=== PATIENT | male | born 1990 | race Caucasian/White ===

== ENCOUNTER 2017-11-29 13:20 | Emergency (ER) | payer BC, SELFPAY ==
[2017-11-29 13:31] VITALS: BP 128/72; PULSE 90; RESP 16; TEMP 37.1; O2SAT 100
--- NOTE | 2017-11-29 13:53 | DI.RPTCT_ITS ---
SYMPTOMS/DIAGNOSIS: RIGHT LOWER ABDOMINAL PAIN, H/O CROHN'S CT ABDOMEN AND PELVIS: CT abdomen and pelvis was performed following the uneventful administration of intravenous and oral contrast material. Comparison is 01/12/16. The visualized lung bases are clear. The liver, spleen, pancreas, gallbladder, adrenal glands , kidneys and urinary bladder are unremarkable. The reproductive organs are unremarkable. There is mild thickening of the wall of the terminal ileum. The remainder of the bowel is unremarkable. No findings to suggest an acute appendicitis are present. No abdominal or pelvic ascites or pneumoperitoneum is seen. There are mildly enlarged lymph nodes seen in the right lower quadrant, which were present on the CT scan from 01/12/16. No acute abnormality is seen in the bones. No evidence of an inguinal hernia is seen. IMPRESSION: Mild bowel wall thickening seen in the terminal ileum, suspicious for an acute inflammatory or infectious process. The findings were discussed with Dr. Ziggy Stratton of the Emergency Department on the date of the examination.
--- NOTE | 2017-11-29 13:53 | ED.GENADUL ---
Disposition Clinical Impression: Crohn's colitis Disposition: HOME Instructions: Crohn Disease (ED) Additional Instructions: Maintain a bland diet today and tomorrow. Advance your diet slowly thereafter. Please follow-up with your primary care physician. Return to the emergency department immediately for any worsening or new concerning symptoms. Referrals: [facility] [Primary Care Provider] - Medical Decision Making - Medical Decision Making 1354: 27-year-old male with history of Crohn's disease here with right lower abdominal pain progressive over the past 2 weeks, tender right lower quadrant. Consider acute surgical pathology including appendicitis. Plan to CT abdomen pelvis. 1645: CT abdomen pelvis interpreted by radiology: Thickening of terminal ileum noted. No appendicitis. Labs reviewed and nondiagnostic. Suspect crohns flare. Patient is remained stable. Plan to discharge and have him follow-up with his primary care physician. History of Present Illness - General Chief complaint: Abd Prob Stated complaint: RIGHT SIDE PAIN Time Seen by Provider: 11/29/17 13:39 Source: patient, RN notes reviewed Mode of arrival: ambulatory Limitations: no limitations - History of Present Illness Initial comments: 27-year-old male with history of Crohn's disease here with right lower abdominal pain over the past 2 weeks. Pain was initially mild and has progressed since onset and is now moderate to severe. Patient denies modifiers. Pain feels like a ache. Pain seems to radiate into his right lower back as well as groin. He has had some associated nausea with no vomiting or diarrhea. No fever. - Related Data Mesalamine [Apriso] 0.375 gm PO DAILY 11/29/17 Allergies Allergy/AdvReac Type Severity Reaction Status Date / Time No Known Allergies Allergy Unverified 11/29/17 13:35 Review of Systems Constitutional: denies: chills, fever Respiratory: denies: cough, shortness of breath Gastrointestinal: as per HPI, abdominal pain, nausea. denies: vomiting Comment: All other systems reviewed and negative Past Medical History - Past Medical History Crohn's disease Surgical history: no surgical history Family history: no significant family history - Social History Smoking status: never smoker General Exam - General Limitations: no limitations General appearance: alert, in no apparent distress - Eye Eye exam: Absent: scleral icterus, conjunctival injection - ENT ENT exam: Present: mucous membranes moist - Respiratory Respiratory exam: Present: normal lung sounds bilaterally - Cardiovascular Cardiovascular Exam: Present: regular rate, normal rhythm, normal heart sounds - GI/Abdominal GI/Abdominal exam: Present: soft, tenderness (Right lower quadrant), normal bowel sounds. Absent: distended, guarding, rebound, rigid - exam: Present: other (No hernia inguinal). Absent: testicular tenderness, urethral discharge, scrotal swelling - Back Exam Back exam: Present: normal inspection - Neurological Exam Neurological exam: Present: alert. Absent: altered - Psychiatric Psychiatric exam: Present: normal affect - Skin Skin exam: Present: warm, dry, intact Course Vital Signs - 24 hr 11/29/17 13:31 Temperature 37.1 C Pulse 90 Respiratory 16 Rate Blood Pressure 128/72 Pulse Oximetry 100
[2017-11-29] MEDS: Lactated Ringers 1,000 ML 150 ML IV (14:20)
[2017-11-29] MEDS: Normal Saline Flush 10 ML SYR IVP (14:20)
[2017-11-29 14:27] LABS: Bilirubin Negative (Negative); Blood Trace-intact (Negative); Clarity Clear; Glucose Negative (Negative); Ketones Negative (Negative); Leukocyte Esterase Negative (Negative); Nitrite Negative (Negative); Specific Gravity 1.015 (1.005-1.025); Urobilinogen 0.2 EU/dL (Up TO 0.2)
[2017-11-29 14:29] LABS: Abs Immature Grans 0.03 k/cumm (0.0-0.09); Absolute Basophil Count 0.03 k/cumm (0.0-0.2); Absolute Eosinophil Count 0.15 k/cumm (0.0-0.7); Absolute Lymphocyte Count 1.43 k/cumm (1.2-3.4); Absolute Neutrophil Count 6.29 k/cumm (1.2-6.7); Basophils % 0.3; Eosinophils % 1.7; HCT 40.1 % (40.0-50.0); HGB 13.5 g/dL (13.5-17.5); Immature Grans % 0.3; Lymphocytes % 16.6; Mean Corp. HGB Concentration 33.7 g/dL (32.0-36.0); Mean Corpuscular Hemoglobin 30.9 pg (27.0-33.0); Mean Corpuscular Volume 91.8 fL (80-95); Monocytes % 8.1; Platelet Count 263 x1000/uL (130-400); RBC 4.37 m/cumm (4.50-6.00); RBC Distribution Width 12.7 % (11.8-14.1); White Blood Cell Count 8.63 k/cumm (4.4-10.8)
[2017-11-29 14:42] LABS: ALT 31 U/L (12-78); AST 17 U/L (15-37); Albumin 4.2 g/dL (3.4-5.0); Alkaline Phosphatase 83 U/L (46-116); Anion Gap 6.8 mmol/L (3-11); BUN 14 mg/dL (7-18); Bilirubin, Total 0.5 mg/dL (0.2-1.0); CO2 28.2 mmol/L (21.0-32.0); CREATININE 1.18 mg/dL (0.70-1.30); Calcium 8.4 mg/dL (8.5-10.1); Chloride 104 mmol/L (98-107); Glucose 100 mg/dL (70-100); Lipase 123 U/L (73-393); Potassium 3.3 mmol/L (3.5-5.1); Sodium 139 mmol/L (136-145); Total Protein 7.2 g/dL (6.4-8.2)
[2017-11-29 15:05] LABS: RBC 0-2 (0-2); WBC 0-2 HPF (0-5)
[2017-11-29 15:06] LABS: Bacteria Negative HPF (Negative); C & S Indicated? No; Casts Negative LPF (Negative); Crystals Negative HPF (Negative); Epithelial Cells Negative HPF (Negative); Mucus Negative (Negative); Other Cells Negative (Negative)
[2017-11-29] MEDS: Omnipaque 350 MG/ML 100 ML BTL IJ (15:38)
[2017-11-29 17:20] VITALS: BP 124/77; PULSE 73; RESP 18; TEMP 209.3; TEMP 98.5; O2SAT 98
== END 2017-11-29 17:30 | disposition home or self-care (01) ==
PROVIDERS: Emergency Provider Student in an Organized Health Care Education/Training Program; PCP Family Medicine
DX: K50.00 Crohn's disease of small intestine without complications (principal)
CPT/HCPCS: 36415; 80053; 83690; 96360; 96361; 99285; 74177; 81003; 81015; 85025; 99284; J3490

== ENCOUNTER 2018-01-04 17:08 | Emergency (ER) | payer BC, SELFPAY ==
[2018-01-04 17:25] VITALS: BP 137/69; PULSE 70; RESP 16; TEMP 36.7; O2SAT 96
--- NOTE | 2018-01-04 17:57 | ED.GENADUL_ITS ---
Discharge Plan Disposition Patient Disposition: HOME Condition: Fair Discharge Details Chief Complaint: Abd Prob Clinical Impression: Left inguinal pain Primary Care Provider: [facility] ED Provider: Jennifer Long Home Meds and New Rx's Prescriptions: Continue mesalamine [Apriso] 0.375 GM capsule,extended release 24hr 0.375 gm PO DAILY RF: 0 Budesonide [Budesonide EC] 3 MG Capdr...Er 3 mg PO TID 28 Days Qty: 63 RF: 0 Discharge Instructions Instructions: Testicle Pain (ED) Additional Instructions: Encourage hydration. Tylenol and/or ibuprofen as needed for discomfort. Please follow-up for ultrasound, they will contact him Saturday morning to schedule appointment. Once the appointment has been made please contact her primary care to establish appointment after that to discuss the results. Try to elevate your testicles to help any discomfort. If you develop fever/chills, change in urination, change in bowel habits, penile discharge, swelling of the testicles or other new/worsening symptoms please seek care urgently once again. Referrals: Get [facility] [Primary Care Provider] - Discharge Data Discharge Date/Time-TO BE ENTERED AT DEPARTURE: 01/04/18 19:41 Medical Decision Making MDM Narrative Medical decision making narrative: Patient presents today with chief complaint of left inguinal pain. Reports this pain can radiate down towards left testicle. He reports that the cord that goes down to the testicle is swollen . However, on exam I am unable to appreciate any swelling. No erythema. The left testicle does hang slightly lower than the right. Patient reports is typical. No pain elicited with palpation of the testicle. No pain elicited with palpation over the inguinal area. No palpable deformity to suggest hernia. His history does raise a concern for possible inguinal hernia, epididymitis, muscle strain. He does not report that there is any changes with movement. Again, no fevers or chills. No change in bowel habits or bladder habits. No penile discharge. Patient I discussed with/benefits of imaging. Patient reports he has had approximately 6 CT of his abdomen in the past. With the risk of radiation mounting, he prefers to forego CT at this time. We did discuss that ultrasound would be exam of choice. At this time of night, I do not have an in flight technician on. However, as the pain has been steady for the past 2 weeks, he does not exhibit any signs of torsion, I do not feel that emergent imaging is necessary at this point. We will obtain baseline labs. Laboratory evaluation without significant abnormality. The white count is minimally elevated. However, again without findings on exam to suggest acute pathology I do not feel that imaging is warranted at this time as the only CT is available at this point in the evening. Patient and I again discussed imaging and he agrees with outpatient ultrasound to help reduce his radiation load as he has had so many secondary to his Crohn's. Patient will be set up with outpatient ultrasound. A dirty urine for GC chlamydia has been sent. He was given strict return precautions. Will f/u with his PCP after US. All of his questions and concerns were addressed he is in agreement with this plan. HPI - General Adult General Mode of arrival: ambulatory . Date/Time Provider Initiated Documentation: 01/04/18 17:34 . Limitations to Documentation: no limitations . Information obtained by: patient . HPI Narrative: Patient is a 27-year-old male presenting today with chief complaint of left inguinal pain. Reports that the pain has been steady for the past 2 weeks. Reports the pain is irritating. States it has improved over this time. He denies any fevers or chills. Patient has history of Crohn's. Was here a few weeks ago and diagnosed with Crohn's flare with pain in the lower abdomen on the right side. CT was obtained at that time. He denies any penile discharge. Denies any dysuria, hematuria or change in urinary habits. Patient denies any change in his bowel habits. Denies any new sexual partners. He has not been tested for STDs previously. Reports that he does try to practice safe sex. Related Data Home Medications Medication Instructions Recorded Confirmed mesalamine [Apriso] 0.375 gm PO DAILY 11/29/17 01/04/18 Previous Rx's Medication Instructions Recorded Budesonide [Budesonide EC] 3 mg PO TID 28 Days #63 capdr...er 11/29/17 Allergies Allergy/AdvReac Type Severity Reaction Status Date / Time No Known Allergies Allergy Unverified 01/04/18 17:29 General Stated Complaint: Abd Prob PALOMO: 3 Review of Systems Constitutional Reports as per HPI, Denies chills, Denies fever(s) and Denies poor appetite Cardiovascular Denies chest pain and Denies dyspnea Respiratory Denies cough and Denies dyspnea Gastrointestinal Reports as per HPI, Denies melena, Denies bloating, Denies change in bowel habits, Denies diarrhea, Denies nausea and Denies vomiting Genitourinary Reports as per HPI Musculoskeletal Denies abnormal gait and Denies back pain Integumentary/Breasts Denies non-healing lesions, Denies rash and Denies skin pain Neurologic Denies abnormal gait PFSH Social History Smoking/Tobacco Use Status: Never Exam Const General: cooperative, healthy appearing, comfortable, no acute distress and well developed Nutritional Appearance: average body habitus Orientation: alert and awake Eyes General: appearance normal, both eyes and all related structures Resp Effort & Inspection: normal respiratory effort, able to speak in complete sentences and no respiratory distress Cardio Rate: regular rate Rhythm: regular rhythm Heart Sounds: S1 normal and S2 normal GI Inspection: normal to inspection, no abdominal wall ecchymosis, no edema, non- distended, no incisions and no scars Palpation: soft, no hepatosplenomegaly, no aortic enlargement, not firm, no guarding, not rigid and nontender Percussion: normal to percussion Auscultation: normal bowel sounds Abdomen image: 2 1. area of discomfort Male General Exam: Yes normal external exam, No ecchymosis, No edema, No erythema, No hernia, No inguinal lymphadenopathy, No lacerations and No lesions Penis: normal penis Scrotum: scrotum normal, cremasteric reflex present, no ecchymosis, not edematous, not erythematous, no hydroceles, no masses and no scrotal swelling Testes: normal, testicular lie normal (left testicle lies slightly lower than the right ), epididymal tenderness (Mild tenderness, no palpable swelling or abnormality palable or visible) and no testicular tenderness Back/Spine/Pelvis Back: no CVA tenderness Skin General skin exam: no rashes or lesions noted Lesions: no lesions Rashes: no rashes Trauma: no lacerations or abrasions Wounds: no wounds Neuro General: alert and awake Cognition: normal cognition Speech: speech normal Gait: normal gait Psych Appearance: grossly normal and well kempt Mental Status: mental status grossly normal Speech and Movement: speech and movement normal Mood: congruent mood Affect: normal affect Attitude: cooperative Course Vital Signs Temperature 36.7 C 01/04/18 17:25 Pulse 70 01/04/18 17:25 Respiratory Rate 16 01/04/18 17:25 Blood Pressure 137/69 01/04/18 17:25 Pulse Oximetry 96 01/04/18 17:25 Temperature 36.7 C 01/04/18 17:25 Pulse 70 01/04/18 17:25 Respiratory Rate 16 01/04/18 17:25 Blood Pressure 137/69 01/04/18 17:25 Pulse Oximetry 96 01/04/18 17:25
[2018-01-04 18:21] LABS: Abs Immature Grans 0.01 k/cumm (0.0-0.09); Absolute Basophil Count 0.02 k/cumm (0.0-0.2); Absolute Eosinophil Count 0.11 k/cumm (0.0-0.7); Absolute Lymphocyte Count 1.33 k/cumm (1.2-3.4); Absolute Monocyte Count 0.87 k/cumm (0.11-0.7); Basophils % 0.2; HCT 40.7 % (40.0-50.0); HGB 13.7 g/dL (13.5-17.5); Immature Grans % 0.1; Lymphocytes % 11.7; Mean Corp. HGB Concentration 33.7 g/dL (32.0-36.0); Mean Corpuscular Hemoglobin 30.6 pg (27.0-33.0); Mean Corpuscular Volume 90.8 fL (80-95); Mean Platelet Volume 10.1 fL (8.0-11.0); Monocytes % 7.7; Neutrophils % 79.3; Platelet Count 289 x1000/uL (130-400); RBC 4.48 m/cumm (4.50-6.00); RBC Distribution Width 12.4 % (11.8-14.1); White Blood Cell Count 11.34 k/cumm (4.4-10.8)
[2018-01-04 18:22] LABS: Absolute Neutrophil Count 8.99 k/cumm (1.2-6.7)
[2018-01-04 18:26] LABS: ALT 25 U/L (12-78); AST 17 U/L (15-37); Albumin 4.2 g/dL (3.4-5.0); Alkaline Phosphatase 83 U/L (46-116); Anion Gap 7.2 mmol/L (3-11); BUN 22 mg/dL (7-18); Bilirubin, Total 0.5 mg/dL (0.2-1.0); CO2 27.8 mmol/L (21.0-32.0); CREATININE 1.25 mg/dL (0.70-1.30); Calcium 8.3 mg/dL (8.5-10.1); Chloride 104 mmol/L (98-107); Glucose 113 mg/dL (70-100); Potassium 3.4 mmol/L (3.5-5.1); Sodium 139 mmol/L (136-145); Total Protein 7.1 g/dL (6.4-8.2)
[2018-01-07 14:44] LABS: Chlamydia Result Negative; GC Result Negative
== END 2018-01-04 19:41 | disposition home or self-care (01) ==
PROVIDERS: Emergency Provider Physician Assistant; PCP Family Medicine
DX: R10.32 Left lower quadrant pain (principal)
CPT/HCPCS: 36410; 36415; 80053; 87491; 87591; 99282; 85025

== ENCOUNTER 2018-01-06 15:10 | Outpatient (CLI) | payer BC, SELFPAY ==
--- NOTE | 2018-01-06 08:59 | DI.US_ITS ---
SYMPTOM/DIAGNOSIS: LT INGUINAL AND TESTICULAR PAIN X 2 WEEKS TESTICULAR ULTRASOUND: The testicles are normal in size and echogenicity, and show normal blood flow. The epididymi appear symmetric. A small varicocele is seen inferior to the left testicle. No hydrocele is seen. There is no evidence of mass. IMPRESSION: Small left varicocele.
== END 2018-01-06 15:30 ==
PROVIDERS: PCP Family Medicine; Visit Provider Physician Assistant
DX: N50.89 Other specified disorders of the male genital organs (principal); I86.1 Scrotal varices
CPT/HCPCS: 76870

== ENCOUNTER 2018-05-01 18:06 | Emergency (ER) | payer BC, SELFPAY ==
[2018-05-01] VITALS (19 sets, daily range): BP systolic 125–131; BP diastolic 73–99; PULSE 74–96; RESP 13–35; TEMP 37.7; O2SAT 89–100
--- NOTE | 2018-05-01 18:28 | W.ED.GENAD ---
Discharge Plan Disposition Patient Disposition: HOME Condition: Fair Discharge Details Chief Complaint: Anxiety Clinical Impression: Anxiety Primary Care Provider: [facility] ED Provider: Jennifer Long Home Meds and New Rx's Prescriptions: Continued Apriso 0.375 GM capsule,extended release 24hr 0.375 gm PO DAILY RF: 0 Discharge Instructions Instructions: Lorazepam (By mouth), Anxiety (ED) Additional Instructions: Encourage hydration. Ativan as prescribed. May take on 0.5mg tablet every 8 hours as needed for anxiety. Please only take this as prescribed. Please call [facility] tomorrow, please plan to meet with Amarilis at their facility tomorrow. Call at 8AM [phone] Jones tomorrow to schedule follow up as soon as possible to discuss your severe anxiety, call tomorrow morning. If you develop worsening anxiety, thoughts of self harm, thoughts of harming others or any other new/worsening symptoms please seek care urgently once again. Stand Alone Forms: Work Release Referrals: Get [facility] [Primary Care Provider] - Discharge Data Discharge Date/Time-TO BE ENTERED AT DEPARTURE: 05/01/18 20:56 Medical Decision Making Patient is a 27 year old male presentig today with c/c of increased anxiety. Symptoms have been worsening over the past month with severe exacerbation in recent days with breakup. He is tearing and agitated on exam, appears very anxious. Good interaction with mother, lives with her. Patient is tachypnic at 27, HR 91. He endorses sleep changes, diminished appetite. Denies suicidal ideation, thoughts of self harm or harming other. currently endorsing CP that has waxed and waned since onset of increased anxiety. States that he has had this historically with anxiety but that todya is the worst he has ever exerpienced his anxiety. Endorses SOB with this. Will give oral ativan and reassess. Will also obtain EKG and labs. Discussed plan with patient who is in agreement. Patient questioned with mother out of the room as well. EKG reviewed by Dr. Stratton, patient in NSR rate 87. He advised no stemi, please see his note. Consulted with Lucy with [facility]. She advised that he may be seen emergently tomorrow at their facility. Gave contact information so that they may reach out to the patient tomorrow morning. Advised that he also f/u with PCP as they may have mental health capabilities through their facility. Discussed this plan with patient and his mother. Mother will help to ensure prompt follow up and plans to drive given his increased anxiety. They will contact [facility] and PCP tomorrow morning to schedule appointments. WBC elevated at 12, likely stress reaction with no evidence of acute infection. Troponin is normal. discussed these findings with the patient. He is feeling much improved after po Ativan. Plan to discharge home with 0.5mg tabs that he will use PRN for anxiety as prescribed. Only small amount given. He was given strict return precautions, they live locally and are able to seek care urgently. Will f/u with PCP and [facility] as above. All of his questions and concerns were addressed, he is able to verbally contract for safety and will discuss worsening symptoms with his mother. They are in agreement with this plan. HPI General Mode of arrival: ambulatory. Date/Time Provider Initiated Documentation: 05/01/18 18:22. Limitations to Documentation: no limitations. Information obtained by: patient and family. HPI Narrative: Patient is a 27 year old male, accompanied by mother whom he lives with, with c/c of anxiety. Reprots he has had anxiety his entire life that has waxed and waned. Rerpots that after recent break up with significant other, he has had particularly severe anxiety with panic attacks. Reports for the last month he has had difficulty sleeping. Diminished appetite. Denies thoughts of suicidal ideation, thoughts of self harm or harming others. No hallucinations. Has not discussed his anxiety historically with health care providers. Has never seen a counselor or been on medications. Patient has history of crohns. No acute chagne in this. Was seen by bobbin cleaner today for routine follow up. Denies drug use or ETOh. States that with his increased anxiety he has all over chest pain. States he can also get SOB. No history of cardiac disease, states this typically is associated with his anxiety. Related Data Home Medications Medication Instructions Recorded Confirmed Apriso 0.375 gm PO DAILY 11/29/17 05/01/18 Allergies Allergy/AdvReac Type Severity Reaction Status Date / Time No Known Allergies Allergy Unverified 05/01/18 18:32 General PALOMO: 3 Review of Systems Constitutional Reports as per HPI, Denies chills, Denies fatigue, Denies fever(s), Denies headache(s) and Denies weakness Eyes Denies change in vision ENT Denies headache(s) Cardiovascular Reports as per HPI, Reports chest pain, Denies lightheadedness, Denies dyspnea and Denies dyspnea on exertion Respiratory Denies cough, Denies dyspnea and Denies dyspnea on exertion Gastrointestinal Reports as per HPI, Denies abdominal pain, Denies change in bowel habits, Denies nausea and Denies vomiting Genitourinary Denies system reviewed and no additional complaints, except as docu (denies any change in urinary habits) Musculoskeletal Denies abnormal gait Integumentary/Breasts Reports as per HPI and Denies rash Neurologic Denies abnormal gait, Denies headache(s) and Denies weakness Psychiatric Reports as per HPI, Reports abnormal sleep pattern, Reports anxiety, Reports change in appetite, Reports depression, Reports panic attacks, Denies visual hallucinations, Denies hallucinations, Denies homicidal ideation and Denies suicidal ideation Endocrine Denies fatigue PFSH Social History Smoking/Tobacco Use Status: Never Exam Const General: cooperative, healthy appearing, well developed, well groomed and anxious (patient is tearing and appears very anxious) Nutritional Appearance: average body habitus and well nourished Orientation: alert and awake Eyes General: appearance normal, both eyes and all related structures Resp Effort & Inspection: normal respiratory effort, able to speak in complete sentences and no respiratory distress Auscultation: clear to auscultation bilaterally, no rales, no rhonchi and no wheezes Cardio Rate: regular rate Rhythm: regular rhythm Heart Sounds: S1 normal and S2 normal Skin General skin exam: no rashes or lesions noted Trauma: no lacerations or abrasions Neuro General: alert and awake Cognition: normal cognition Speech: speech normal Gait: normal gait Extrem General: normal to inspection, no pedal edema and no calf tenderness Psych Appearance: grossly normal Speech and Movement: agitated and restless Mood: anxious mood Affect: sad Attitude: cooperative Thought Process: normal Thought Content: normal Insight: insight good Judgment: judgment good
[2018-05-01] MEDS: LORazepam 1 MG TAB PO (18:53)
[2018-05-01 19:30] LABS: Abs Immature Grans 0.05 k/cumm (0.0-0.09); Absolute Eosinophil Count 0.02 k/cumm (0.0-0.7); Absolute Monocyte Count 0.82 k/cumm (0.11-0.7); Basophils % 0.2; Eosinophils % 0.2; HCT 41.5 % (40.0-50.0); HGB 14.2 g/dL (13.5-17.5); Immature Grans % 0.4; Lymphocytes % 13.4; Mean Corp. HGB Concentration 34.2 g/dL (32.0-36.0); Mean Corpuscular Hemoglobin 30.5 pg (27.0-33.0); Mean Corpuscular Volume 89.2 fL (80-95); Mean Platelet Volume 10.5 fL (8.0-11.0); Monocytes % 6.7; Neutrophils % 79.1; Platelet Count 325 x1000/uL (130-400); RBC 4.65 m/cumm (4.50-6.00); RBC Distribution Width 12.4 % (11.8-14.1)
[2018-05-01 19:32] LABS: Absolute Basophil Count 0.02 k/cumm (0.0-0.2); Absolute Lymphocyte Count 1.63 k/cumm (1.2-3.4); Absolute Neutrophil Count 9.65 k/cumm (1.2-6.7)
[2018-05-01 19:51] LABS: ALT 23 U/L (12-78); AST 13 U/L (15-37); Albumin 4.4 g/dL (3.4-5.0); Alkaline Phosphatase 83 U/L (46-116); Anion Gap 11.4 mmol/L (3-11); BUN 17 mg/dL (7-18); CO2 24.6 mmol/L (21.0-32.0); CREATININE 1.28 mg/dL (0.70-1.30); Calcium 9.2 mg/dL (8.5-10.1); Chloride 104 mmol/L (98-107); Glucose 90 mg/dL (70-100); Magnesium 1.9 mg/dL (1.8-2.4); Potassium 3.7 mmol/L (3.5-5.1); Sodium 140 mmol/L (136-145); TSH (W/Ref FT4) 2.74 uIU/mL (0.358-3.74); Total Protein 7.4 g/dL (6.4-8.2); Troponin I 0.02 ng/mL (0.00-0.06)
--- NOTE | 2018-05-01 20:44 | ED.GENADUL_ITS ---
Discharge Plan Disposition Patient Disposition: HOME Condition: Fair Discharge Details Chief Complaint: Anxiety Clinical Impression: Anxiety Primary Care Provider: [facility] ED Provider: Jennifer Long Home Meds and New Rx's Prescriptions: Continued Apriso 0.375 GM capsule,extended release 24hr 0.375 gm PO DAILY RF: 0 Discharge Instructions Instructions: Lorazepam (By mouth), Anxiety (ED) Additional Instructions: Encourage hydration. Ativan as prescribed. May take on 0.5mg tablet every 8 hours as needed for anxiety. Please only take this as prescribed. Please call [facility] tomorrow, please plan to meet with Amarilis at their facility tomorrow. Call at 8AM [phone] Jones tomorrow to schedule follow up as soon as possible to discuss your severe anxiety, call tomorrow morning. If you develop worsening anxiety, thoughts of self harm, thoughts of harming others or any other new/worsening symptoms please seek care urgently once again. Stand Alone Forms: Work Release Referrals: [facility] [Primary Care Provider] - Discharge Data Discharge Date/Time-TO BE ENTERED AT DEPARTURE: 05/01/18 20:56 Medical Decision Making Patient is a 27 year old male presentig today with c/c of increased anxiety. Symptoms have been worsening over the past month with severe exacerbation in recent days with breakup. He is tearing and agitated on exam, appears very anxious. Good interaction with mother, lives with her. Patient is tachypnic at 27, HR 91. He endorses sleep changes, diminished appetite. Denies suicidal ideation, thoughts of self harm or harming other. currently endorsing CP that has waxed and waned since onset of increased anxiety. States that he has had this historically with anxiety but that todya is the worst he has ever exerpienced his anxiety. Endorses SOB with this. Will give oral ativan and reassess. Will also obtain EKG and labs. Discussed plan with patient who is in agreement. Patient questioned with mother out of the room as well. EKG reviewed by Dr. Stratton, patient in NSR rate 87. He advised no stemi, please see his note. Consulted with Lucy with [facility]. She advised that he may be seen emergently tomorrow at their facility. Gave contact information so that they may reach out to the patient tomorrow morning. Advised that he also f/u with PCP as they may have mental health capabilities through their facility. Discussed this plan with patient and his mother. Mother will help to ensure prompt follow up and plans to drive given his increased anxiety. They will contact [facility] and PCP tomorrow morning to schedule appointments. WBC elevated at 12, likely stress reaction with no evidence of acute infection. Troponin is normal. discussed these findings with the patient. He is feeling much improved after po Ativan. Plan to discharge home with 0.5mg tabs that he will use PRN for anxiety as prescribed. Only small amount given. He was given strict return precautions, they live locally and are able to seek care urgently. Will f/u with PCP and [facility] as above. All of his questions and concerns were addressed, he is able to verbally contract for safety and will discuss worsening symptoms with his mother. They are in agreement with this plan. HPI General Mode of arrival: ambulatory . Date/Time Provider Initiated Documentation: 05/01/18 18:22 . Limitations to Documentation: no limitations . Information obtained by: patient and family . HPI Narrative: Patient is a 27 year old male, accompanied by mother whom he lives with, with c/c of anxiety. Reprots he has had anxiety his entire life that has waxed and waned. Rerpots that after recent break up with significant other, he has had particularly severe anxiety with panic attacks. Reports for the last month he has had difficulty sleeping. Diminished appetite. Denies thoughts of suicidal ideation, thoughts of self harm or harming others. No hallucinations. Has not discussed his anxiety historically with health care providers. Has never seen a counselor or been on medications. Patient has history of crohns. No acute chagne in this. Was seen by clinical product specialist today for routine follow up. Denies drug use or ETOh. States that with his increased anxiety he has all over chest pain. States he can also get SOB. No history of cardiac disease, states this typically is associated with his anxiety. Related Data Home Medications Medication Instructions Recorded Confirmed Apriso 0.375 gm PO DAILY 11/29/17 05/01/18 Allergies Allergy/AdvReac Type Severity Reaction Status Date / Time No Known Allergies Allergy Unverified 05/01/18 18:32 General PALOMO: 3 Review of Systems Constitutional Reports as per HPI, Denies chills, Denies fatigue, Denies fever(s), Denies headache(s) and Denies weakness Eyes Denies change in vision ENT Denies headache(s) Cardiovascular Reports as per HPI, Reports chest pain, Denies lightheadedness, Denies dyspnea and Denies dyspnea on exertion Respiratory Denies cough, Denies dyspnea and Denies dyspnea on exertion Gastrointestinal Reports as per HPI, Denies abdominal pain, Denies change in bowel habits, Denies nausea and Denies vomiting Genitourinary Denies system reviewed and no additional complaints, except as docu (denies any change in urinary habits) Musculoskeletal Denies abnormal gait Integumentary/Breasts Reports as per HPI and Denies rash Neurologic Denies abnormal gait, Denies headache(s) and Denies weakness Psychiatric Reports as per HPI, Reports abnormal sleep pattern, Reports anxiety, Reports change in appetite, Reports depression, Reports panic attacks, Denies visual hallucinations, Denies hallucinations, Denies homicidal ideation and Denies suicidal ideation Endocrine Denies fatigue PFSH Social History Smoking/Tobacco Use Status: Never Exam Const General: cooperative, healthy appearing, well developed, well groomed and anxious (patient is tearing and appears very anxious) Nutritional Appearance: average body habitus and well nourished Orientation: alert and awake Eyes General: appearance normal, both eyes and all related structures Resp Effort & Inspection: normal respiratory effort, able to speak in complete sentences and no respiratory distress Auscultation: clear to auscultation bilaterally, no rales, no rhonchi and no wheezes Cardio Rate: regular rate Rhythm: regular rhythm Heart Sounds: S1 normal and S2 normal Skin General skin exam: no rashes or lesions noted Trauma: no lacerations or abrasions Neuro General: alert and awake Cognition: normal cognition Speech: speech normal Gait: normal gait Extrem General: normal to inspection, no pedal edema and no calf tenderness Psych Appearance: grossly normal Speech and Movement: agitated and restless Mood: anxious mood Affect: sad Attitude: cooperative Thought Process: normal Thought Content: normal Insight: insight good Judgment: judgment good
[2018-05-01] MEDS: LORazepam 0.5 MG TAB 3 MG PO (20:52)
== END 2018-05-01 20:56 | disposition home or self-care (01) ==
PROVIDERS: Emergency Provider Physician Assistant; PCP Family Medicine
DX: F41.1 Generalized anxiety disorder (principal); R07.9 Chest pain, unspecified
CPT/HCPCS: 36415; 80053; 93005; 99285; 83735; 84443; 84484; 85025; 93010

== ENCOUNTER 2018-07-04 22:30 | Emergency (ER) | payer BC, SELFPAY ==
[2018-07-04] VITALS (14 sets, daily range): BP systolic 93–124; BP diastolic 43–68; PULSE 81–102; RESP 15–33; TEMP 37.1; O2SAT 95–100
[2018-07-04] MEDS: Lactated Ringers 1,000 ML 1000 ML IV ×2 (23:05→23:46)
--- NOTE | 2018-07-04 23:11 | W.ED.GENAD ---
Discharge Plan Disposition Patient Disposition: HOME Condition: Good Discharge Details Chief Complaint: Nausea/Vomit/Diar Clinical Impression: Nausea, vomiting and diarrhea, Acute dehydration, Syncope Primary Care Provider: [facility] ED Provider: Turner Mitchell [place] Meds and New Rx's Prescriptions: New ondansetron 4 mg tablet,disintegrating 4 mg PO QID PRN (Reason: nausea and vomiting) Qty: 10 RF: 0 Continued Apriso 0.375 GM capsule,extended release 24hr 0.375 gm PO DAILY RF: 0 Discharge Instructions Instructions: Dehydration (ED), Acute Nausea and Vomiting (ED) Additional Instructions: Please take it easy over the weekend. You need to stay hydrated and keep fluids down. If you decide to try to eat start with a bland diet. Follow-up with your primary care next week if not feeling better. He will need labs rechecked in a couple of weeks to make sure your liver function has come back to normal. Return to ED for persistent vomiting, worsening abdominal pain, bloody diarrhea, other concerns. Referrals: Get [facility] [Primary Care Provider] - Medical Decision Making Patient arrives with a syncopal event after multiple episodes of vomiting and diarrhea. Complains of some epigastric pain but has a benign abdomen. Has a history of Crohn's but this does not feel like a Crohn's flare to him. IV is established and laboratory studies obtained. Fluids, Zofran, Pepcid ordered. EKG obtained on arrival is normal. Patient's laboratory studies significant for leukocytosis which may be related to gastroenteritis. May also be stress reaction to all the vomiting and diarrhea. Liver function is slightly bumped. He does not have right upper quadrant tenderness at all. At this point he does not even have epigastric tenderness or pain. He does have evidence of dehydration and his BUN and creatinine are little bit bumped. Lipase is normal. He is tolerating p.o. at this point. He feels a lot better after 2 L of LR. I suspect this is more gastroenteritis then Crohn's. Probably will be fine in the next day or 2. He will be given Zofran for home. Rest over the weekend. Push fluids as best as possible. Return if any further problems. Lab Data Lab results reviewed: Yes I reviewed the patient's lab results. ECG Data Attestation: I personally reviewed and interpreted this ECG (s) as follows: Prior ECG tracings: not available for review Interpretation: Sinus rhythm at 91. Normal axis and intervals. No acute ST changes. HPI General Mode of arrival: wheelchair. Date/Time Provider Initiated Documentation: 07/04/18 23:11. Limitations to Documentation: no limitations. Information obtained by: patient. HPI Narrative: Patient presents to ED with nausea, vomiting and diarrhea starting this afternoon. Apparently had a syncopal event in the bathroom after multiple episodes of vomiting and diarrhea. He has some epigastric discomfort. He does have a history of Crohn's disease but reports that this feels completely different to him. He felt like maybe he was coming down with a little stomach bug this morning. He denies having fever. He denies having chest pain or shortness of breath. Denies any injury from the syncopal event. He denies any hematemesis or hematochezia. He has been unable to keep anything down since the vomiting started. There has been no travel outside of the . There is been no abnormal or suspicious food. Related Data Home Medications Medication Instructions Recorded Confirmed Apriso 0.375 gm PO DAILY 11/29/17 05/01/18 ondansetron 4 mg PO QID PRN #10 tab 07/05/18 Previous Rx's Medication Instructions Recorded ondansetron 4 mg PO QID PRN #10 tab 07/05/18 Allergies Allergy/AdvReac Type Severity Reaction Status Date / Time No Known Allergies Allergy Unverified 07/04/18 22:46 General Stated Complaint: Dizzy/Sync PALOMO: 2 Review of Systems Constitutional Denies fever(s), Denies headache(s), Reports malaise and Denies weakness ENT Denies otalgia, Denies facial pain, Denies headache(s), Denies nasal congestion, Denies neck pain and Denies sore throat Cardiovascular Denies chest pain, Denies diaphoresis, Reports syncope, Denies edema and Denies dyspnea Respiratory Denies cough and Denies dyspnea Gastrointestinal Reports abdominal pain, Denies hematochezia, Reports diarrhea, Reports nausea, Reports vomiting and Denies hematemesis Musculoskeletal Denies back pain, Denies neck pain and Denies numbness Integumentary/Breasts Denies rash Neurologic Reports syncope, Denies headache(s), Denies focal weakness, Denies numbness and Denies weakness [facility] Medical History Crohn's disease (Chronic) Social History Smoking and Tabacco status: Never Exam Const General: cooperative and no acute distress Orientation: alert and oriented x3 HENNH Head: normocephalic and atraumatic Mouth: mucous membranes dry Eyes Sclera: sclerae normal Neck Neck: trachea midline and supple Resp Effort & Inspection: normal respiratory effort Auscultation: clear to auscultation bilaterally Cardio Rate: regular rate Rhythm: regular rhythm Heart Sounds: S1 normal and S2 normal GI Inspection: non-distended Palpation: soft, not firm, no guarding and nontender Skin Rashes: no rashes Neuro General: alert, oriented x3, no focal motor deficits and CN's II-XI intact bilaterally Extrem General: no clubbing, cyanosis or edema Course Vital Signs Temperature 98.8 F 07/04/18 22:39 Pulse 102 H 07/04/18 22:39 Respiratory Rate 33 H 07/04/18 22:39 Blood Pressure 124/67 07/04/18 22:39 Pulse Oximetry 100 07/04/18 22:39 Temperature 98.8 F 07/04/18 22:39 Temperature Source Temporal Artery Scan 07/04/18 22:39 Pulse 102 H 07/04/18 22:39 Respiratory Rate 33 H 07/04/18 22:39 Respiratory Effort Non-Labored 07/04/18 22:44 Blood Pressure 124/67 07/04/18 22:39 Pulse Oximetry 100 07/04/18 22:39 Oxygen Delivery Method Room Air 07/04/18 22:39 Oxygen Flow Rate 0 07/04/18 22:39 Pain Level 3 07/04/18 22:39
--- NOTE | 2018-07-04 23:16 | ED.GENADUL_ITS ---
Discharge Plan Disposition Patient Disposition: HOME Condition: Good Discharge Details Chief Complaint: Nausea/Vomit/Diar Clinical Impression: Nausea, vomiting and diarrhea, Acute dehydration, Syncope Primary Care Provider: [facility] ED Provider: Turner Mitchell [place] Meds and New Rx's Prescriptions: New ondansetron 4 mg tablet,disintegrating 4 mg PO QID PRN (Reason: nausea and vomiting) Qty: 10 RF: 0 Continued Apriso 0.375 GM capsule,extended release 24hr 0.375 gm PO DAILY RF: 0 Discharge Instructions Instructions: Dehydration (ED), Acute Nausea and Vomiting (ED) Additional Instructions: Please take it easy over the weekend. You need to stay hydrated and keep fluids down. If you decide to try to eat start with a bland diet. Follow-up with your primary care next week if not feeling better. He will need labs rechecked in a couple of weeks to make sure your liver function has come back to normal. Return to ED for persistent vomiting, worsening abdominal pain, bloody diarrhea, other concerns. Referrals: Get Jones [Primary Care Provider] - Medical Decision Making Patient arrives with a syncopal event after multiple episodes of vomiting and diarrhea. Complains of some epigastric pain but has a benign abdomen. Has a history of Crohn's but this does not feel like a Crohn's flare to him. IV is established and laboratory studies obtained. Fluids, Zofran, Pepcid ordered. EKG obtained on arrival is normal. Patient's laboratory studies significant for leukocytosis which may be related to gastroenteritis. May also be stress reaction to all the vomiting and diarrhea. Liver function is slightly bumped. He does not have right upper quadrant tenderness at all. At this point he does not even have epigastric tenderness or pain. He does have evidence of dehydration and his BUN and creatinine are little bit bumped. Lipase is normal. He is tolerating p.o. at this point. He feels a lot better after 2 L of LR. I suspect this is more gastroenteritis then Crohn's. Probably will be fine in the next day or 2. He will be given Zofran for home. Rest over the weekend. Push fluids as best as possible. Return if any further problems. Lab Data Lab results reviewed: Yes I reviewed the patient's lab results. ECG Data Attestation: I personally reviewed and interpreted this ECG (s) as follows: Prior ECG tracings: not available for review Interpretation: Sinus rhythm at 91. Normal axis and intervals. No acute ST changes. HPI General Mode of arrival: wheelchair . Date/Time Provider Initiated Documentation: 07/04/18 23:11 . Limitations to Documentation: no limitations . Information obtained by: patient . HPI Narrative: Patient presents to ED with nausea, vomiting and diarrhea starting this afternoon. Apparently had a syncopal event in the bathroom after multiple episodes of vomiting and diarrhea. He has some epigastric discomfort. He does have a history of Crohn's disease but reports that this feels completely different to him. He felt like maybe he was coming down with a little stomach bug this morning. He denies having fever. He denies having chest pain or shortness of breath. Denies any injury from the syncopal event. He denies any hematemesis or hematochezia. He has been unable to keep anything down since the vomiting started. There has been no travel outside of the . There is been no abnormal or suspicious food. Related Data Home Medications Medication Instructions Recorded Confirmed Apriso 0.375 gm PO DAILY 11/29/17 05/01/18 ondansetron 4 mg PO QID PRN #10 tab 07/05/18 Previous Rx's Medication Instructions Recorded ondansetron 4 mg PO QID PRN #10 tab 07/05/18 Allergies Allergy/AdvReac Type Severity Reaction Status Date / Time No Known Allergies Allergy Unverified 07/04/18 22:46 General Stated Complaint: Dizzy/Sync PALOMO: 2 Review of Systems Constitutional Denies fever(s), Denies headache(s), Reports malaise and Denies weakness ENT Denies otalgia, Denies facial pain, Denies headache(s), Denies nasal congestion, Denies neck pain and Denies sore throat Cardiovascular Denies chest pain, Denies diaphoresis, Reports syncope, Denies edema and Denies dyspnea Respiratory Denies cough and Denies dyspnea Gastrointestinal Reports abdominal pain, Denies hematochezia, Reports diarrhea, Reports nausea, Reports vomiting and Denies hematemesis Musculoskeletal Denies back pain, Denies neck pain and Denies numbness Integumentary/Breasts Denies rash Neurologic Reports syncope, Denies headache(s), Denies focal weakness, Denies numbness and Denies weakness [facility] Medical History Crohn's disease (Chronic) Social History Smoking and Tabacco status: Never Exam Const General: cooperative and no acute distress Orientation: alert and oriented x3 HENMI Head: normocephalic and atraumatic Mouth: mucous membranes dry Eyes Sclera: sclerae normal Neck Neck: trachea midline and supple Resp Effort & Inspection: normal respiratory effort Auscultation: clear to auscultation bilaterally Cardio Rate: regular rate Rhythm: regular rhythm Heart Sounds: S1 normal and S2 normal GI Inspection: non-distended Palpation: soft, not firm, no guarding and nontender Skin Rashes: no rashes Neuro General: alert, oriented x3, no focal motor deficits and CN's II-XI intact bilaterally Extrem General: no clubbing, cyanosis or edema Course Vital Signs Temperature 98.8 F 07/04/18 22:39 Pulse 102 H 07/04/18 22:39 Respiratory Rate 33 H 07/04/18 22:39 Blood Pressure 124/67 07/04/18 22:39 Pulse Oximetry 100 07/04/18 22:39 Temperature 98.8 F 07/04/18 22:39 Temperature Source Temporal Artery Scan 07/04/18 22:39 Pulse 102 H 07/04/18 22:39 Respiratory Rate 33 H 07/04/18 22:39 Respiratory Effort Non-Labored 07/04/18 22:44 Blood Pressure 124/67 07/04/18 22:39 Pulse Oximetry 100 07/04/18 22:39 Oxygen Delivery Method Room Air 07/04/18 22:39 Oxygen Flow Rate 0 07/04/18 22:39 Pain Level 3 07/04/18 22:39
[2018-07-04] MEDS: FAMOTIDINE 20 MG/50 ML BAG 200 MG IVPB (23:27)
[2018-07-04 23:28] LABS: Abs Immature Grans 0.07 k/cumm (0.0-0.09); Absolute Basophil Count 0.02 k/cumm (0.0-0.2); Absolute Eosinophil Count 0.05 k/cumm (0.0-0.7); Absolute Lymphocyte Count 0.37 k/cumm (1.2-3.4); Absolute Monocyte Count 1.08 k/cumm (0.11-0.7); Absolute Neutrophil Count 16.71 k/cumm (1.2-6.7); Basophils % 0.1; Eosinophils % 0.3; HCT 46.4 % (40.0-50.0); HGB 15.9 g/dL (13.5-17.5); Immature Grans % 0.4; Mean Corp. HGB Concentration 34.3 g/dL (32.0-36.0); Mean Corpuscular Hemoglobin 30.6 pg (27.0-33.0); Mean Corpuscular Volume 89.4 fL (80-95); Mean Platelet Volume 10.6 fL (8.0-11.0); Monocytes % 5.9; Neutrophils % 91.3; Platelet Count 299 x1000/uL (130-400); RBC 5.19 m/cumm (4.50-6.00)
[2018-07-04] MEDS: Ondansetron 4 MG/2 ML VIAL IVP (23:28)
[2018-07-04 23:39] LABS: ALT 86 U/L (12-78); AST 41 U/L (15-37); Albumin 4.6 g/dL (3.4-5.0); Alkaline Phosphatase 93 U/L (46-116); Anion Gap 13.2 mmol/L (3-11); BUN 27 mg/dL (7-18); Bilirubin, Total 1.3 mg/dL (0.2-1.0); CO2 24.8 mmol/L (21.0-32.0); CREATININE 1.45 mg/dL (0.70-1.30); Calcium 9.5 mg/dL (8.5-10.1); Chloride 102 mmol/L (98-107); Estimated GFR 58.38 (mL/min/1.73m2); Glucose 113 mg/dL (70-100); Lipase 85 U/L (73-393); Magnesium 1.7 mg/dL (1.8-2.4); Potassium 3.8 mmol/L (3.5-5.1); Sodium 140 mmol/L (136-145)
[2018-07-05] VITALS (23 sets, daily range): BP systolic 107–119; BP diastolic 49–59; PULSE 85–100; RESP 15–30; TEMP 37.1; O2SAT 87–97
[2018-07-05] MEDS: Ondansetron O.D.T. 4 MG TABEF PO (01:48)
== END 2018-07-05 02:15 | disposition home or self-care (01) ==
PROVIDERS: Emergency Provider Emergency Medicine; PCP Family Medicine
DX: R11.2 Nausea with vomiting, unspecified (principal); R19.7 Diarrhea, unspecified; E86.0 Dehydration; R55 Syncope and collapse; D72.829 Elevated white blood cell count, unspecified; R10.13 Epigastric pain; K50.90 Crohn's disease, unspecified, without complications
CPT/HCPCS: 36415; 80053; 83690; 93005; 96361; 96365; 96375; 99285; 83735; 85025; 93010; 99284; J2405

== ENCOUNTER 2018-07-21 12:10 | Outpatient (CLI) | payer BC, SELFPAY ==
[2018-07-21 12:31] LABS: HCT 41.3 % (40.0-50.0); HGB 13.9 g/dL (13.5-17.5); Mean Corp. HGB Concentration 33.7 g/dL (32.0-36.0); Mean Corpuscular Hemoglobin 30.5 pg (27.0-33.0); Mean Corpuscular Volume 90.8 fL (80-95); Mean Platelet Volume 9.7 fL (8.0-11.0); Platelet Count 307 x1000/uL (130-400); RBC 4.55 m/cumm (4.50-6.00); RBC Distribution Width 12.7 % (11.8-14.1); White Blood Cell Count 10.54 k/cumm (4.4-10.8)
[2018-07-21 13:26] LABS: ALT 38 U/L (12-78); AST 18 U/L (15-37); Albumin 4.2 g/dL (3.4-5.0); Alkaline Phosphatase 96 U/L (46-116); Bilirubin, Direct 0.09 mg/dL (0.00-0.20); Bilirubin, Total 0.3 mg/dL (0.2-1.0); C-Reactive Protein 0.36 mg/dL (0.0-0.3); Total Protein 6.8 g/dL (6.4-8.2)
[2018-07-21 13:43] LABS: ESR 6 MM/HR (0-15)
== END 2018-07-21 12:30 ==
PROVIDERS: PCP Family Medicine
DX: R10.12 Left upper quadrant pain (principal)
CPT/HCPCS: 36415; 80076; 85027; 85652; 86140

== ENCOUNTER 2019-04-17 21:30 | Emergency (ER) | payer BC, SELFPAY ==
[2019-04-17] VITALS (7 sets, daily range): BP systolic 120–156; BP diastolic 65–87; PULSE 78–102; RESP 16; TEMP 36.8; O2SAT 96–99
--- NOTE | 2019-04-17 21:39 | ED.GENADUL_ITS ---
Discharge Plan Disposition Patient Disposition: HOME Condition: Stable Discharge Details Chief Complaint: GI Bleed Clinical Impression: Crohn's colitis Primary Care Provider: [facility] ED Provider: Edgar Ferrer Home Meds and New Rx's Prescriptions: New prednisone 20 mg tablet 60 mg PO DAILY 5 Days Qty: 15 RF: 0 ciprofloxacin HCl 500 mg tablet 500 mg PO BID Qty: 14 RF: 0 Continued Apriso 0.375 GM capsule,extended release 24hr 0.375 gm PO DAILY RF: 0 sertraline 25 mg Tablet 25 mg PO DAILY RF: 0 mirtazapine 7.5 mg Tablet See Rx Instructions .ROUTE .COMPLEX RF: 0 Discharge Instructions Instructions: Crohn Disease (ED) Additional Instructions: your blood work and cat scan did not show any concerning findings follow up with your asset protection detective as soon as possible if you feel more ill, have worsening pain or fevers return to the emergency department Medical Decision Making 28 yo male with hx of crohn's who has not been on medications for over a month due to monetary issues comes in with lower abdmoinal discomfort and passing blood with bowel movements starting today. Denies high fevers, vomit, recent travel, alcohol or drug use or tobacco use. He denies any new foods. HE arrives HD stable, does have dark colored blood on rectal exam, mild tenderness to lower abdomen, suspect crohn's flare, will tx with steroids and obtain lab work and imaging and monitor. HE does appear anxious and is willing to have anxiolysis while here, will give ativan pt remains stable, labs unremarkable and he is more comfortable and CT negative. Will start on cipro and prednisone and advised he f/u with his GI specialist within 1 week and return precautions given Differential Diagnosis Differential Diagnosis: croh's flare, diverticulitis Imaging Data Radiologic Study: Attestation: I personally reviewed and interpreted this imaging study as follows: Imaging: CT Scan Radiologist's impression: no acute findings Lab Data Lab results reviewed: Yes I reviewed the patient's lab results. HPI General Mode of arrival: ambulatory . Date/Time Provider Initiated Documentation: 04/17/19 21:31 . Limitations to Documentation: no limitations . Information obtained by: patient . History of Present Illness 28 year old M presents to the emergency department with the chief complaint of bright red blood per rectum, described as moderate, and it has been intermittent. No relieving factors improve symptom(s), No exacerbating factors reported . Patient did receive the following treatments prior to arrival, none Related Data Home Medications Medication Instructions Recorded Confirmed Apriso 0.375 gm PO DAILY 11/29/17 05/01/18 ciprofloxacin HCl 500 mg PO BID #14 tab 04/17/19 mirtazapine See Rx Instructions .ROUTE .COMPLEX 04/17/19 04/17/19 prednisone 60 mg PO DAILY 5 Days #15 tab 04/17/19 sertraline 25 mg PO DAILY 04/17/19 04/17/19 Previous Rx's Medication Instructions Recorded ciprofloxacin HCl 500 mg PO BID #14 tab 04/17/19 prednisone 60 mg PO DAILY 5 Days #15 tab 04/17/19 Allergies Allergy/AdvReac Type Severity Reaction Status Date / Time No Known Allergies Allergy Unverified 04/17/19 21:38 General Stated Complaint: GI Bleed PALOMO: 3 Review of Systems All systems reviewed & are unremarkable except as noted in HPI and below Constitutional Constitutional: Denies chills, Denies fever(s) and Denies weakness Cardiovascular Cardiovascular: Denies chest pain and Denies dyspnea Respiratory Respiratory: Denies cough and Denies dyspnea Gastrointestinal Gastrointestinal: Denies vomiting Genitourinary Genitourinary: Denies dysuria Musculoskeletal Musculoskeletal: Denies joint swelling Integumentary/Breasts Skin/Breast: Denies rash Neurologic Neurologic: Denies weakness [facility] Medical History (Updated 07/05/18 @ 05:39 by Turner Mitchell MD) Crohn's disease (Chronic) Social History Smoking/Tobacco Use Status: Never Alcohol Intake: never Drug use: Occasionally Substance use type: marijuana Do you feel safe in your relationship?: Yes Exam Const General: no acute distress Orientation: alert HENMT Head: normal to inspection Ears: external ears normal General nose exam: external nose normal Mouth: moist mucous membranes Eyes General: appearance normal, both eyes and all related structures Neck Neck: normal visual inspection Resp Effort & Inspection: normal respiratory effort and able to speak in complete sentences Cardio Rate: regular rate GI Palpation: soft Skin General skin exam: no rashes or lesions noted Neuro General: alert and oriented x3 Extrem General: normal to inspection Psych Mental Status: mental status grossly normal Course Vital Signs Vital signs: Vital Signs Temperature 36.8 C 04/17/19 21:33 Pulse 102 H 04/17/19 21:33 Respiratory Rate 16 04/17/19 21:33 Blood Pressure 156/87 H 04/17/19 21:33 Pulse Oximetry 99 04/17/19 21:33 Temperature 36.8 C 04/17/19 21:33 Temperature Source Skin 04/17/19 21:33 Pulse 102 H 04/17/19 21:33 Respiratory Rate 16 04/17/19 21:33 Respiratory Effort 04/17/19 21:33 Blood Pressure 156/87 H 04/17/19 21:33 Pulse Oximetry 99 04/17/19 21:33 Oxygen Delivery Method Room Air 04/17/19 21:33 Oxygen Flow Rate 0 04/17/19 21:33 Pain Level 3 04/17/19 21:33
[2019-04-17] MEDS: methylPREDNISolone SUCC 125 MG VIAL IVP (21:51)
[2019-04-17] MEDS: Normal Saline 1,000 ML 1000 ML IV (21:51)
[2019-04-17] MEDS: LORazepam 2 MG/ML VIAL 1 MG IVP (21:58)
[2019-04-17 22:04] LABS: Abs Immature Grans 0.06 k/cumm (0.0-0.09); Absolute Basophil Count 0.03 k/cumm (0.0-0.2); Absolute Lymphocyte Count 2.73 k/cumm (1.2-3.4); Absolute Monocyte Count 1.21 k/cumm (0.11-0.7); Basophils % 0.2; Eosinophils % 1.7; HCT 43.7 % (40.0-50.0); HGB 14.4 g/dL (13.5-17.5); Immature Grans % 0.4; Lymphocytes % 19.9; Mean Corpuscular Hemoglobin 29.6 pg (27.0-33.0); Mean Corpuscular Volume 89.7 fL (80-95); Mean Platelet Volume 10.2 fL (8.0-11.0); Monocytes % 8.8; Platelet Count 300 x1000/uL (130-400); RBC 4.87 m/cumm (4.50-6.00); RBC Distribution Width 12.6 % (11.8-14.1); White Blood Cell Count 13.73 k/cumm (4.4-10.8)
[2019-04-17 22:06] LABS: Absolute Eosinophil Count 0.23 k/cumm (0.0-0.7); Absolute Neutrophil Count 9.47 k/cumm (1.2-6.7)
[2019-04-17] MEDS: Omnipaque 350 MG/ML 100 ML BTL IJ (22:10)
[2019-04-17 22:15] LABS: ALT 34 U/L (16-63); AST 18 U/L (15-37); Albumin 4.1 g/dL (3.4-5.0); Alkaline Phosphatase 96 U/L (46-116); Anion Gap 7.5 mmol/L (3-11); BUN 18 mg/dL (7-18); Bilirubin, Total 0.3 mg/dL (0.2-1.0); CO2 30.5 mmol/L (21.0-32.0); CREATININE 1.23 mg/dL (0.70-1.30); Calcium 8.9 mg/dL (8.5-10.1); Chloride 105 mmol/L (98-107); Glucose 90 mg/dL (74-106); Lipase 108 U/L (73-393); Magnesium 2.1 mg/dL (1.8-2.4); Potassium 3.4 mmol/L (3.5-5.1); Sodium 143 mmol/L (136-145); Total Protein 7.2 g/dL (6.4-8.2)
--- NOTE | 2019-04-17 22:16 | DI.CT_ITS ---
EXAM: CT ABDOMEN PELVIS W CLINICAL HISTORY: abdominal pain, bright red blood per rectum TECHNIQUE: Imaging Protocol: Axial computed tomography images with coronal and sagittal reformatted images were created and reviewed CONTRAST MATERIAL: The exam was performed with IV contrast according to the usual protocol. Oral: No COMPARISON: ABD PELVIS WITH CONTRAST from 11/29/2017 FINDINGS: ABDOMEN: Lung Bases: Normal where visualized. Liver: Normal density. No measurable mass. Gallbladder and biliary tract: No radiodense calculus or dilation. Pancreas: Normal density, no abnormal calcifications or inflammatory process. Spleen: Normal. Kidneys: Normal size, contour and axis. No radiodense stones or obstructive uropathy. No masses seen. Adrenal glands: No masses seen. Abdominal Aorta: Abdominal portion non-dilated. PELVIS: Bladder: Symmetric distention, no gross wall thickening. Bowel: No obstruction or bowel wall thickening. The appendix is normal in size without evidence of ad jacent mesenteric fat stranding or adjacent fluid collection. Peritoneal cavity: No ascites, collection or mesenteric inflammatory response. Bones: Within normal limits. Reproductive organs: Within normal limits. Lymph nodes: Unchanged mildly enlarged lymph nodes in the right lower quadrant. No suspicious pathol ogically enlarged lymph nodes are seen. Impression: Unremarkable CT scan of the abdomen and pelvis. DATA REPOSITORY: All CT scans at this facility are submitted to the National Radiology Data Registry (NRDR) Dose Index Registry (DIR) with the [employer] (ACR). RADIATION OPTIMIZATION: All CT scans at this facility use at least one of these dose optimization te chniques: automated exposure control; mA and/or kV adjustment per patient size (includes targeted exa ms where dose is matched to clinical indication); or iterative reconstruction.
[2019-04-17 22:17] LABS: PTT Activated 24.3 sec (21.0-31.4); Prothrombin Time 10.1 sec (9.3-11.0)
--- NOTE | 2019-04-17 22:39 | DI.VRAD_ITS ---
PROCEDURE INFORMATION: Exam: CT Abdomen And Pelvis With Contrast Exam date and time: 04/17/2019 10:11 PM Age: 28 years old Clinical indication: Other: Abdominal pain, bright red blood per rectum TECHNIQUE: Imaging protocol: Computed tomography of the abdomen and pelvis with intravenous contrast. Radiation optimization: All CT scans at this facility use at least one of these dose optimization techniques: automated exposure control; mA and/or kV adjustment per patient size (includes targeted exams where dose is matched to clinical indication); or iterative reconstruction. COMPARISON: CT ABD PELVIS WITH CONTRAST 11/29/2017 3:15 PM FINDINGS: Liver: Normal. No mass. Gallbladder and bile ducts: Normal. No calcified stones. No ductal dilation. Pancreas: Normal. No ductal dilation. Spleen: Normal. No splenomegaly. Adrenals: Normal. No mass. Kidneys and ureters: Normal. No hydronephrosis. Stomach and bowel: Unremarkable. No obstruction. No mucosal thickening. Appendix: No evidence of appendicitis. Intraperitoneal space: Unremarkable. No free air. No significant fluid collection. Vasculature: Unremarkable. No abdominal aortic aneurysm. Lymph nodes: Unremarkable. No enlarged lymph nodes. Bladder: Unremarkable as visualized. Reproductive: Unremarkable as visualized. Bones/joints: Unremarkable. No acute fracture. Soft tissues: Unremarkable. IMPRESSION: No acute findings. No large bowel edema or inflammatory features. Dictated and Authenticated by: Foster Becker MD. Ordering:JOSE ANGEL Hernández MD
[2019-04-17] MEDS: Ciprofloxacin 500 MG TAB PO (22:52)
== END 2019-04-17 22:55 | disposition home or self-care (01) ==
PROVIDERS: Emergency Provider Emergency Medicine; PCP Family Medicine
DX: K50.911 Crohn's disease, unspecified, with rectal bleeding (principal); F41.9 Anxiety disorder, unspecified; Z91.120 Patient's intentional underdosing of medication regimen due to financial hardship
CPT/HCPCS: 36415; 80053; 83690; 86850; 86900; 86901; 96361; 96374; 96375; 99285; 74177; 83735; 85025; 85610; 85730; 99284; J2060; J2930; J3490

== ENCOUNTER 2019-05-20 16:40 | Emergency (ER) | payer BC, SELFPAY ==
[2019-05-20 16:45] VITALS: BP 131/78; PULSE 90; RESP 18; TEMP 37; O2SAT 97
--- NOTE | 2019-05-20 16:57 | W.ED.GENAD ---
Discharge Plan Disposition Patient Disposition: HOME Condition: Stable Discharge Details Chief Complaint: Abd Prob Clinical Impression: Abdominal pain, Epiploic appendagitis Primary Care Provider: [facility] ED Provider: Edgar Ferrer Home Meds and New Rx's Prescriptions: Continued mesalamine [Apriso] 0.375 GM capsule,extended release 24hr 0.375 gm PO DAILY RF: 0 mirtazapine 7.5 mg Tablet See Rx Instructions .ROUTE .COMPLEX RF: 0 buspirone 10 mg Tablet 10 mg PO DAILY RF: 0 Discharge Instructions Additional Instructions: Your cat scan showed epiploic appendagitis which is a self limiting illness take 1000mg tylenol every 6 hours and 600mg ibuprofen every 6 hours if not better within a week see your primary care provider and if pain significantly worsens or you feel more ill return to the emergency department Medical Decision Making 28 yo male with hx of crohn's not currently on meds comes in with 1 day of left lower abdominal pain. Denies fevers, vomit, diarrhea, testicle pain or swelling or urinary symptoms, states other than the pain I feel fine. Denies this feeling like prior crohn's flares as he has no joint pain or diarrhea. No prior surgeries. He apparently had a fever to 102 at pcp's office and was referred here but is afebrile here and denies having feeling or sensation of being febrile. HE has llq tenderness on exam without guarding and no testicle tenderness or swelling. Suspect diveritulitis vs colitis, will obtain labs and imaging and monitor labs unremarkable and ct shows epiploic appendagitis. Discussed findings with pt and usually self limiting disease. ADvised f/u with pcp and return precautions given Differential Diagnosis Differential Diagnosis: diverticulitis, abdominal wall pain, colitis Medical Records Medical records reviewed: Yes I reviewed the patient's medical records. Imaging Data Radiologic Study: Attestation: I personally reviewed and interpreted this imaging study as follows: Imaging: CT Scan Radiologist's impression: IMPRESSION: 1. Left lower quadrant epiploic appendagitis. 2. Incidental findings as above. Lab Data Lab results reviewed: Yes I reviewed the patient's lab results. HPI General Mode of arrival: ambulatory. Date/Time Provider Initiated Documentation: 05/20/19 16:50. Limitations to Documentation: no limitations. Information obtained by: patient. History of Present Illness 28 year old M presents to the emergency department with the chief complaint of abdominal pain, described as moderate, Quality is described as stabbing and aching, and is localized to the abdomen. Patient reports no radiation. Patient started experiencing this day(s) (1) and it has been constant. No relieving factors improve symptom(s), No exacerbating factors reported . Patient notes no other symptoms.. Patient did receive the following treatments prior to arrival, none Related Data Home Medications Medication Instructions Recorded Confirmed mesalamine [Apriso] 0.375 gm PO DAILY 11/29/17 05/20/19 mirtazapine See Rx Instructions .ROUTE .COMPLEX 04/17/19 05/20/19 buspirone 10 mg PO DAILY 05/20/19 05/20/19 Allergies Allergy/AdvReac Type Severity Reaction Status Date / Time No Known Allergies Allergy Unverified 05/20/19 16:50 General Stated Complaint: Abd Prob PALOMO: 3 Review of Systems All systems reviewed & are unremarkable except as noted in HPI and below Constitutional Constitutional: Denies chills, Denies fever(s) and Denies weakness Cardiovascular Cardiovascular: Denies dyspnea Respiratory Respiratory: Denies cough and Denies dyspnea Gastrointestinal Gastrointestinal: Denies nausea and Denies vomiting Genitourinary Genitourinary: Denies scrotal swelling, Denies testicular pain and Denies urinary frequency Neurologic Neurologic: Denies weakness [facility] Medical History (Updated 07/05/18 @ 05:39 by Turner Mitchell MD) Crohn's disease (Chronic) Social History Smoking/Tobacco Use Status: Never Alcohol Intake: never Drug use: Occasionally Substance use type: marijuana Do you feel safe at home: Yes Exam Const General: no acute distress Orientation: alert [facility] Head: normal to inspection Ears: external ears normal General nose exam: external nose normal Mouth: moist mucous membranes Eyes General: appearance normal, both eyes and all related structures Neck Neck: normal visual inspection Resp Effort & Inspection: normal respiratory effort and able to speak in complete sentences Cardio Rate: regular rate GI Palpation: soft Skin General skin exam: no rashes or lesions noted Neuro General: alert and oriented x3 Extrem General: normal to inspection Psych Mental Status: mental status grossly normal Course Vital Signs Vital signs: Vital Signs Temperature 37.0 C 05/20/19 16:45 Pulse 90 05/20/19 16:45 Respiratory Rate 18 05/20/19 16:45 Blood Pressure 131/78 05/20/19 16:45 Pulse Oximetry 97 05/20/19 16:45 Temperature 37.0 C 05/20/19 16:45 Temperature Source Skin 05/20/19 16:45 Pulse 90 05/20/19 16:45 Respiratory Rate 18 05/20/19 16:45 Respiratory Effort Non-Labored 05/20/19 16:49 Blood Pressure 131/78 05/20/19 16:45 Blood Pressure Position Sitting 05/20/19 16:45 Pulse Oximetry 97 05/20/19 16:45 Pain Level 7 05/20/19 16:45
[2019-05-20] MEDS: Normal Saline 1,000 ML 1000 ML IV (17:05)
[2019-05-20] MEDS: Ketorolac 15 MG/ML VIAL IVP (17:11)
[2019-05-20] MEDS: Normal Saline Flush 10 ML SYR IVP (17:12)
[2019-05-20 17:17] LABS: Abs Immature Grans 0.09 k/cumm (0.0-0.09); Absolute Basophil Count 0.03 k/cumm (0.0-0.2); Absolute Eosinophil Count 0.16 k/cumm (0.0-0.7); Absolute Lymphocyte Count 1.76 k/cumm (1.2-3.4); Absolute Monocyte Count 1.19 k/cumm (0.11-0.7); Basophils % 0.3; Eosinophils % 1.4; HCT 42.4 % (40.0-50.0); HGB 14.1 g/dL (13.5-17.5); Immature Grans % 0.8 %; Lymphocytes % 15.5; Mean Corp. HGB Concentration 33.3 g/dL (32.0-36.0); Mean Corpuscular Hemoglobin 29.8 pg (27.0-33.0); Mean Corpuscular Volume 89.6 fL (80-95); Monocytes % 10.5; Neutrophils % 71.5; Platelet Count 319 x1000/uL (130-400); RBC 4.73 m/cumm (4.50-6.00); RBC Distribution Width 12.7 % (11.8-14.1); White Blood Cell Count 11.33 k/cumm (4.4-10.8)
[2019-05-20 17:24] LABS: ALT 27 U/L (16-63); AST 15 U/L (15-37); Albumin 4.2 g/dL (3.4-5.0); Alkaline Phosphatase 96 U/L (46-116); Anion Gap 7.5 mmol/L (3-11); BUN 18 mg/dL (7-18); Bilirubin, Direct 0.08 mg/dL (0.00-0.20); Bilirubin, Total 0.2 mg/dL (0.2-1.0); CO2 29.5 mmol/L (21.0-32.0); CREATININE 1.13 mg/dL (0.70-1.30); Calcium 8.5 mg/dL (8.5-10.1); Chloride 104 mmol/L (98-107); Glucose 99 mg/dL (74-106); Lipase 88 U/L (73-393); Potassium 3.8 mmol/L (3.5-5.1); Sodium 141 mmol/L (136-145); Total Protein 7.1 g/dL (6.4-8.2)
--- NOTE | 2019-05-20 17:27 | DI.CT_ITS ---
EXAM: CT ABDOMEN PELVIS W CLINICAL HISTORY: left lower abdominal pain. TECHNIQUE: Imaging Protocol: Axial computed tomography images with coronal and sagittal reformatted images were created and reviewed CONTRAST MATERIAL: Intravenous: Omnipaque 350 Contrast volume:100 mL Oral: No COMPARISON: CT ABDOMEN PELVIS W from 04/17/2019 FINDINGS: ABDOMEN: Lung Bases: Normal where visualized. Liver: Normal density. No measurable mass. Mild hepatomegaly. Gallbladder and biliary tract: No radiodense calculus or dilation. Contracted gallbladder. Pancreas: Normal density, no abnormal calcifications or inflammatory process. Spleen: Normal. Kidneys: Normal size, contour and axis. No radiodense stones or obstructive uropathy. No masses seen. Adrenal glands: No masses seen. Abdominal Aorta: Abdominal portion non-dilated. PELVIS: Bladder: Symmetric distention, no gross wall thickening. Bowel: There is a 2 centimeter fat density lesion adjacent to the descending colon (series 5, image 5 50). There is inflammation in the soft tissue surrounding this area. The finding is most suggestive of inflamed epiploic appendagitis. The remainder of the bowel shows no evidence of significant bowel wall thickening. There is a normal appendix present. There is no evidence of bowel obstruction. Peritoneal cavity: No ascites, collection or mesenteric inflammatory response. Bones: Within normal limits. Reproductive organs: Within normal limits. Lymph nodes: Mildly enlarged lymph nodes in the right lower quadrant. These are nonspecific. Impression: Findings most consistent with left lower quadrant epiploic appendagitis. DATA REPOSITORY: All CT scans at this facility are submitted to the National Radiology Data Registry (NRDR) Dose Index Registry (DIR) with the [employer] (ACR). RADIATION OPTIMIZATION: All CT scans at this facility use at least one of these dose optimization te chniques: automated exposure control; mA and/or kV adjustment per patient size (includes targeted exa ms where dose is matched to clinical indication); or iterative reconstruction.
[2019-05-20] MEDS: Omnipaque 350 MG/ML 100 ML BTL IJ (17:31)
[2019-05-20] MEDS: Normal Saline - Diluent 50 ML VIAL IV (17:32)
--- NOTE | 2019-05-20 17:56 | DI.VRAD_ITS ---
PROCEDURE INFORMATION: Exam: CT Abdomen And Pelvis With Contrast Exam date and time: 05/20/2019 5:24 PM Age: 28 years old Clinical indication: Other: Left lower abdominal pain TECHNIQUE: Imaging protocol: Computed tomography of the abdomen and pelvis with intravenous contrast. Radiation optimization: All CT scans at this facility use at least one of these dose optimization techniques: automated exposure control; mA and/or kV adjustment per patient size (includes targeted exams where dose is matched to clinical indication); or iterative reconstruction. Contrast material: OMNIPAQUE 350; Contrast volume: 100 ml; Contrast route: IV; COMPARISON: CT ABDOMEN PELVIS W 04/17/2019 10:09 PM FINDINGS: Lungs: The visualized portions of the lung bases are normal. Liver: There is marked enlargement of the liver. There is a diffuse decrease in hepatic parenchymal density, consistent with fatty infiltration. Gallbladder and bile ducts: The gallbladder is contracted. There is no evidence of biliary ductal dilation. Pancreas: Normal. No ductal dilation. Spleen: Normal. No splenomegaly. Adrenals: Normal. No mass. Kidneys and ureters: Normal. No hydronephrosis. Stomach and bowel: There is a 1.9 cm fat density lesion lesion with thick soft tissue rind identified adjacent to the descending colon on image 547 series 5 and image 32 series 6, most compatible with an inflamed epiploic appendage. No segmental bowel wall thickening. No bowel obstruction. There are segmental areas of both large and small bowel which have submucosal fat deposition. This is most likely related to increased body fat content, however has also been described with the sequela of infectious/inflammatory process. No other acute bowel findings are appreciated. There is severe constipation present. Appendix: No evidence of appendicitis. Intraperitoneal space: Unremarkable. No free air. No significant fluid collection. Vasculature: Unremarkable. No abdominal aortic aneurysm. Lymph nodes: Unremarkable. No enlarged lymph nodes. Bladder: Unremarkable as visualized. Reproductive: Unremarkable as visualized. Bones/joints: No acute abnormality or aggressive osseous lesion. Soft tissues: No acute soft tissue findings. IMPRESSION: 1. Left lower quadrant epiploic appendagitis. 2. Incidental findings as above. Dictated and Authenticated by: Francis Stubbs MD. Ordering:JOSE ANGEL Hernández MD
[2019-05-20 18:10] VITALS: BP 136/76; PULSE 83; RESP 14; TEMP 36.7; O2SAT 99
[2019-05-20 18:27] LABS: Bilirubin Negative (Negative); Blood Trace-intact (Negative); Clarity Clear (Clear); Glucose Negative (Negative); Ketones Negative (Negative); Leukocyte Esterase Negative (Negative); Nitrite Negative (Negative); Specific Gravity 1.025 (1.005-1.025); Urobilinogen 0.2 EU/dL (Up TO 0.2)
[2019-05-20 18:34] LABS: Bacteria Negative HPF (Negative); C & S Indicated? No; Casts Negative LPF (Negative); Crystals Negative HPF (Negative); Epithelial Cells Negative HPF (Negative); Mucus Negative (Negative); Other Cells Negative (Negative); RBC Negative HPF (0-2); WBC Negative HPF (0-5)
== END 2019-05-20 18:15 | disposition home or self-care (01) ==
PROVIDERS: Emergency Provider Emergency Medicine; PCP Family Medicine
DX: K63.89 Other specified diseases of intestine (principal); R10.32 Left lower quadrant pain
CPT/HCPCS: 80053; 83690; 96361; 96374; 99285; 74177; 81003; 81015; 82248; 85025; 99284; J1885; J3490

== ENCOUNTER 2019-06-16 07:04 | Emergency (ER) | payer BC, SELFPAY ==
[2019-06-16 07:10] VITALS: BP 143/80; PULSE 115; RESP 20; TEMP 36.7; O2SAT 99
[2019-06-16 07:15] VITALS: RESP 20
--- NOTE | 2019-06-16 08:02 | ED.GENADUL_ITS ---
Discharge Plan Disposition Patient Disposition: HOME Condition: Stable Discharge Details Chief Complaint: GenMedical Clinical Impression: Anxiety Primary Care Provider: [facility] ED Provider: Neeru Chowdhury Home Meds and New Rx's Prescriptions: New diazepam 5 mg tablet 5 mg PO QHS PRN (Reason: anxiety) Qty: 3 RF: 0 Continued mirtazapine 7.5 mg Tablet See Rx Instructions .ROUTE .COMPLEX RF: 0 buspirone 10 mg Tablet 10 mg PO DAILY RF: 0 Humira Pen [id number] Start 40 mg/0.8 mL Pen Injector Kit 160 mg SUBCUT ONCE RF: 0 Discharge Instructions Instructions: Anxiety (ED) Additional Instructions: Follow-up today at 11:00 as directed. Take medications as directed as needed for anxiety and sleep. Return to the ED for any thoughts of harming herself or others or any worsening or any concerns. Follow up with primary care provider in 3-5 days. Return to ED sooner if any worsening or concerns. Increase oral fluids. Referrals: [facility] [Primary Care Provider] - Medical Decision Making 29-year-old male presents with increased anxiety and agitation. He states this is been ongoing for the last 3 days does have a history of anxiety. He states that he has not slept for 3 days. On initial exam he is very tearful and anxious, he denies suicidal ideations or homicidal ideations. Urine drug screen obtained patient given 5 mg of diazepam p.o. and a mental health evaluation was ordered. 0949: Mental health liaison is at bedside for patient evaluation. 1015: Discussed case with mental health liaison who states that she made the patient an appointment with [facility] at 11:00 today. He is safe for discharge at this time. She also recommends that he has follow-up with his PCP regarding adjusting his medications. She also reports that she will put in a care management referral for a in-home follow-up visit to make sure that patient is keeping his appointments and following up as directed. At this time patient is safe to be discharged home he does have close follow-up care and is not a danger to himself or others at this time. Patient's mother is at bedside and states that she will keep a hold of his anxiety medications. I will prescribe 2 tablets of diazepam as needed to take home. HPI General Mode of arrival: ambulatory . Date/Time Provider Initiated Documentation: 06/16/19 07:14 . Limitations to Documentation: no limitations . Information obtained by: patient . HPI Narrative: 29-year-old male presents with acute anxiety attack. Patient states that he has not slept for the last 3 days he can get out of his head is scared of everything. At this time he denies any suicidal ideations or homicidal ideations, he states I am scared that I will get to that point. He denies any specific situation at home which is causing his anxiety. On exam he is visibly upset and tearful he is cooperative. He denies any pain, nausea, vomiting, diarrhea. No other complaints at this time. Related Data Home Medications Medication Instructions Recorded Confirmed mirtazapine See Rx Instructions .ROUTE .COMPLEX 04/17/19 06/16/19 buspirone 10 mg PO DAILY 05/20/19 06/16/19 Humira Pen [id number] Start 160 mg SUBCUT ONCE 06/16/19 06/16/19 diazepam 5 mg PO QHS PRN #3 tab 06/16/19 Previous Rx's Medication Instructions Recorded diazepam 5 mg PO QHS PRN #3 tab 06/16/19 Allergies Allergy/AdvReac Type Severity Reaction Status Date / Time No Known Allergies Allergy Unverified 06/16/19 07:13 General Stated Complaint: GenMedical PALOMO: 3 Review of Systems Narrative: Constitutional: Negative for weight loss, alert and oriented, well groomed, normal body habitus, appears comfortable. HEENT: Denies trauma, headaches, blurry vision, nasal discharge, sore throat, trouble swallowing. Chest: Denies chest pain, palpitations, irregular rhythm, hypertension. Respiratory: Denies Shortness of breath, cough, hemoptysis. GI: Denies abdominal pain, nausea, vomiting, diarrhea, constipation. : Denies dysuria, hematuria, flank pain, rectal bleeding. Neuro: Denies dizziness, blurry vision, weakness, syncope, headache or facial numbness. Hematologic: Denies easy bruising, intolerance to heat or cold, hair loss. Psychiatric Psychiatric: Reports abnormal sleep pattern, Reports anxiety, Reports depression, Denies auditory hallucinations, Reports panic attacks, Denies homicidal ideation and Denies suicidal ideation [facility] Medical History Crohn's disease (Chronic) Social History Smoking/Tobacco Use Status: Never Alcohol Intake: never Drug use: Occasionally Substance use type: marijuana Do you feel safe at home: Yes Exam Narrative Exam Narrative: Constitutional: Allert and oriented x3. Appears stated age. Normal body habitus. Head: Normocephalic, no trauma. Eyes: Pupils PERRLA, Red reflex noted, EOM's intact. Eyelids symmetrical withour lesions, discharge, or swelling. ENT: Bilateral TM's WNL, External ear normal to inspection, no mastoid TTP, swelling, or erythema, Nasal turbinates WNL, no nasal discharge. Normal dentition, Posterior pharynx WNL, no exudate. Chest: RRR, Normal S1, S2, distal pulses intact. Resp: Lungs clear to auscultation bilaterally, no wheezes, rales, or rhonchi. Musculoskeletal: Normal gait, 5/5 strength to all four extremities. Skin: No suspicious rashes or lesions. Capillary refill ?2 sec. Neurologic: Cranial nerves II-XII intact. Alert and oriented x 3. DTR's intact. Hematologic/Lymphatic: No ecchymosis, no lymphadenopathy. Psych Appearance: well kempt Mental Status: mental status grossly normal Speech and Movement: restless Mood: anxious mood Affect: sad and anxious affect Attitude: cooperative Thought Process: normal Thought Content: normal, no homicidality and suicidality Insight: insight good Judgment: judgment good Course Vital Signs Vital signs: Vital Signs Temperature 36.7 C 06/16/19 07:10 Pulse 115 H 06/16/19 07:10 Respiratory Rate 06/16/19 07:10 Blood Pressure 143/80 H 06/16/19 07:10 Pulse Oximetry 99 06/16/19 07:10 Temperature 36.7 C 06/16/19 07:10 Temperature Source Temporal Artery Scan 06/16/19 07:10 Pulse 115 H 06/16/19 07:10 Respiratory Rate 06/16/19 07:10 Respiratory Effort Non-Labored 06/16/19 07:13 Blood Pressure 143/80 H 06/16/19 07:10 Blood Pressure Position Supine 06/16/19 07:10 Pulse Oximetry 99 06/16/19 07:10 Oxygen Delivery Method Room Air 06/16/19 07:10 Oxygen Flow Rate 0 06/16/19 07:10 Pain Level 0 06/16/19 07:10
[2019-06-16] MEDS: diazePAM 5 MG TAB PO (08:17)
[2019-06-16 08:57] LABS: *AMPHETAMINES SCREEN URINE Negative (Negative); *BARBITURATES SCREEN URINE Negative (Negative); *BENZODIAZEPINES SCREEN URINE Negative (Negative); Cannabinoids THC POSITIVE (Negative); Cocaine Screen,Urine Negative (Negative); METHADONE URINE SCREEN Negative (Negative); OPIATES URINE SCREEN Negative (Negative)
[2019-06-16 08:58] LABS: Tricyclic Antidepressants Negative (Negative)
--- NOTE | 2019-06-16 10:11 | PDOC.MHCN_ITS ---
Date of service: 06/16/19 Time of Service: 10:11 Mental Health Crisis Note Presenting Issue How did you arrive at the ED and why did you come: Foster came today with his mother for evaluation due to severe anxiety and depression affecting his day to day living and sleep. Precipitating Factors Foster is denying SI and HI but did state I'm afraid it will get there. He is not endorsing any thought disturbance and none are observed. Foster is tearful non stop and states several times I'm scared. He is not sure his medications are working as they should be. He was in counseling but missed some appoint ments due to hunting and he forgot about his appointments. As a result, he worries he cannot go back. Disposition BEHAVIOR: Foster is kind and engaged as much as he can but sometimes his mother has to help as he is struggling to speak and recall things. He has not stopped crying since arriving to the ER, even with medications and mother said this has gone on for quite some time. He has a hx of anxiety and depression and stated that his symptoms have gotten worse in the past year and severe like he is seen today in the past 3 days. He is advocating for help. EYE CONTACT: Eye contact is fair to poor. MOOD: Foster is observed as being depressed and anxious. AFFECT: Foster's affect is sad and tearful. APPETITE: Foster reported poor appetite. SLEEP(trouble falling/staying asleep: Foster reported poor sleep. Plan We discussed a referral for a crisis bed but Foster was not interested in this as he was afraid to not be close to his family. I called [facility] and spoke to triage nurse, Margaret Ortiz about getting Foster in to be seen today. She set him up with Anu the counselor at 11am. I encouraged Foster to strongly advocate to see Dr. Jones today as well. I feel Foster needs a possible referral to the [facility] PMHNP. I will do an in house referral for case management to ensure that he is getting his needs met. In addition, spoke to the family about outreaching to his insurance as they tend ot have more services that are not publicized. Mom will help him do this. Signature Clinician's Name/Title: Sneha Albrecht MS, [facility] Emergency Services Clinician
== END 2019-06-16 10:30 | disposition home or self-care (01) ==
PROVIDERS: Emergency Provider Registered Nurse Emergency; PCP Family Medicine
DX: F41.9 Anxiety disorder, unspecified (principal)
CPT/HCPCS: 80307; 99284; 99283

== ENCOUNTER 2019-06-16 13:04 | Outpatient (REF) | payer BC, SELFPAY ==
[2019-06-16 19:11] LABS: Ferritin 78 ng/mL (26-388)
== END 2019-06-16 13:24 ==
LOC: NCHCN 13:04
PROVIDERS: PCP Family Medicine; Visit Provider Family Medicine
DX: G25.81 Restless legs syndrome (principal)
CPT/HCPCS: 82728

== ENCOUNTER 2019-07-01 19:08 | Outpatient (REF) | payer BC, SELFPAY ==
[2019-07-01 19:59] LABS: Anion Gap 9.5 mmol/L (3-11); BUN 18 mg/dL (7-18); CO2 25.5 mmol/L (21.0-32.0); CREATININE 1.18 mg/dL (0.70-1.30); Calcium 7.8 mg/dL (8.5-10.1); Chloride 105 mmol/L (98-107); Glucose 89 mg/dL (74-106); Potassium 4.2 mmol/L (3.5-5.1); Sodium 140 mmol/L (136-145); TSH (W/Ref FT4) 2.59 uIU/mL (0.36-3.74); Vitamin B12 522 pg/mL (193-986)
[2019-07-03 11:14] LABS: Syphilis Serology (RPR) Negative (Negative)
== END 2019-07-01 19:28 ==
LOC: NCHCN 19:08
PROVIDERS: PCP Family Medicine; Visit Provider Family Medicine
DX: F41.1 Generalized anxiety disorder (principal); N28.9 Disorder of kidney and ureter, unspecified; Z11.3 Encounter for screening for infections with a predominantly sexual mode of transmission
CPT/HCPCS: 80048; 82607; 84443; 86592

== ENCOUNTER 2020-05-25 17:13 | Emergency (ER) | payer OTHER, SELFPAY ==
[2020-05-25 17:19] VITALS: BP 142/78; PULSE 74; RESP 20; TEMP 36.8; O2SAT 97
--- NOTE | 2020-05-25 18:12 | ED.GENADUL_ITS ---
Discharge Plan Disposition Patient Disposition: HOME Condition: Good Discharge Details Clinical Impression: Eye foreign body Primary Care Provider: Get Jones ED Provider: Selina Em Home Meds and New Rx's Prescriptions: New erythromycin 5 mg/gram (0.5 %) ointment 0.5 inch ophthalmic (eye) TID Qty: 1 RF: 0 No Action mirtazapine 7.5 mg Tablet See Rx Instructions .ROUTE .COMPLEX RF: 0 buspirone 10 mg Tablet 10 mg PO DAILY RF: 0 Humira Pen Npsdug-HY-YR Start 40 mg/0.8 mL Pen Injector Kit 160 mg SUBCUT ONCE RF: 0 Discharge Instructions Instructions: Eye Foreign Body (ED) Additional Instructions: For safety glasses when working on your vehicle Use erythromycin for the next 3 days Should you have blurred vision, eye pain, change in vision, please return to the emergency room. follow-up with pcp or journeyman level acoustic analyst should you have additional concerns Medical Decision Making Patient with foreign body, successfully removed after tetracaine instillation and forcing Attempted to remove with Q-tip was unsuccessful, 27 g needle and was able to successfully remove foreign body, no restaurant visualized, small abrasion where the foreign body was removed No sebastian sign Patient tolerated procedure without incident No foreign bodies visualized under lids No reported high impact injury, low suspicion for retained foreign body Visual acuity, left 20/20, right 20/30. OU 20/20 No clinical evidence of globe rupture, as above No residual rust ring Return precautions with recommendation for understanding, discharge, condition, and instructed Primary care physician in 24 to 48 hours Differential Diagnosis Differential Diagnosis: Corneal abrasion,rust ring, foreign body, globe rupture Medical Records Medical records reviewed: Yes I reviewed the patient's medical records. HPI This 29-year-old male with past medical history of Crohn's disease on Humira presents with eye irritation since Saturday. He states he was working on his car, underneath his current not wearing protective lenses. He states he tried to remove possible foreign body with a Q-tip but was unsuccessful. He states his tetanus is up-to-date. He denies any vision change. He states that his eye is predominantly irritated with blinking. Denies corrective lens use. He denies any additional complaints at this time. General Date/Time Provider Initiated Documentation: 05/25/20 17:13 . Related Data Home Medications Medication Instructions Recorded Confirmed mirtazapine See Rx Instructions .ROUTE .COMPLEX 04/17/19 05/25/20 buspirone 10 mg PO DAILY 05/20/19 05/25/20 Humira Pen Wxnkfg-RE-AE Start 160 mg SUBCUT ONCE 06/16/19 05/25/20 erythromycin 0.5 inch OPHTHALMIC (EYE) TID #1 g 05/25/20 Previous Rx's Medication Instructions Recorded erythromycin 0.5 inch OPHTHALMIC (EYE) TID #1 g 05/25/20 Allergies Allergy/AdvReac Type Severity Reaction Status Date / Time No Known Allergies Allergy Unverified 06/16/19 07:13 General Stated Complaint: EyeProblem PALOMO: 4 Review of Systems Narrative: Review of systems negative x3 aside from where indicated in HPI [facility] Medical History (Updated 05/25/20 @ 18:09 by ALIN Boggs) Crohn's disease Social History Smoking/Tobacco Use Status: Never Smoking risk assessment performed?: Yes Alcohol Intake: never Drug use: Never Current gender identity: male Do you feel safe at home: Yes Exam Const General: cooperative Eyes Alignment and Position: alignment normal Eyelids: eyelids normal Sclera: scleral abnormality Cornea: corneas abnormal and fluorescein used Pupils: PERRL Direct ophthalmoscopy: normal light reflex Eyes/upper lids images: 1. Course Vital Signs Vital signs: Vital Signs Temperature 36.8 C 05/25/20 17:19 Pulse 74 05/25/20 17:19 Respiratory Rate 20 05/25/20 17:19 Blood Pressure 142/78 H 05/25/20 17:19 Pulse Oximetry 97 05/25/20 17:19 Temperature 36.8 C 05/25/20 17:19 Temperature Source Skin 05/25/20 17:19 Pulse 74 05/25/20 17:19 Respiratory Rate 20 05/25/20 17:19 Respiratory Effort Non-Labored 05/25/20 17:21 Blood Pressure 142/78 H 05/25/20 17:19 Blood Pressure Position Sitting 05/25/20 17:19 Pulse Oximetry 97 05/25/20 17:19 Oxygen Delivery Method Room Air 05/25/20 17:19 Oxygen Flow Rate 0 05/25/20 17:19
== END 2020-05-25 18:20 | disposition home or self-care (01) ==
PROVIDERS: Emergency Provider Physician Assistant; PCP Family Medicine
DX: T15.01XA Foreign body in cornea, right eye, initial encounter (principal)
CPT/HCPCS: 65220

== ENCOUNTER 2020-10-01 05:51 | Emergency (ER) | payer OTHER, SELFPAY ==
[2020-10-01 05:55] VITALS: PULSE 127; RESP 2; TEMP 36.9; O2SAT 97
--- NOTE | 2020-10-01 05:59 | W.ED.GENAD ---
Discharge Plan Disposition Patient Disposition: HOME Condition: Good Discharge Details Clinical Impression: Anxiety Primary Care Provider: Get Jones ED Provider: Kali Watt Home Meds and New Rx's Prescriptions: Continued mirtazapine 7.5 mg Tablet See Rx Instructions .ROUTE .COMPLEX RF: 0 buspirone 10 mg Tablet 15 mg PO DAILY RF: 0 Humira Pen Lnnhda-WW-MW Start 40 mg/0.8 mL Pen Injector Kit 160 mg SUBCUT ONCE RF: 0 Discharge Instructions Instructions: Anxiety (ED) Additional Instructions: At this time we have been able to break this episode of anxiety. Please continue to utilize your home resources of your counselor, and your family doctor. Please continue to take your home medications as directed. We will send you home with 2 pills of Ativan. Please take 1 pill if needed for a notable return of your anxiety or panic. If you notice any worsening of your symptoms, or any new symptoms such as vomiting, diarrhea, fever, chills, shortness of breath, chest pain, numbness, weakness, or fainting , please return immediately to the emergency department for reevaluation. Please follow up with your primary care provider as soon as possible for reassessment and reevaluation. As always, it was a pleasure participating in your medical care today. Referrals: Get Jones [Primary Care Provider] - Medical Decision Making This is a 30-year-old male with a past medical history of Crohn's disease on Humira, and intermittent episodic anxiety/panic attacks. Patient states that he woke up last evening and was completely overwhelmed. He stated that he had a dream watching his own which threw him into a panic. In spite of his best efforts as well as the efforts of his mother for organized slow breathing, and talking to the situation they have not been able to remedy his current anxiety state. He denies any homicidal or suicidal ideations, and states that he feels terrified right now but does not have a reason as to why. Most recent medication change was 1 month ago where he had his mirtazapine increased and his buspirone decreased, but he has not had any problems since then. Patient has no other complaints at this time. He denies any IV or illicit drug use. He denies any chest pain or tearing or ripping sensation in his chest. No other modifying factors. Physical exam demonstrates a tremulous and crying young male, who denies homicidal or suicidal ideations. Patient states that his symptoms are identical to previous panic attacks. Mother is at bedside. We will give the patient 2 mg of Ativan p.o., monitor closely and reassess. Patient used to have Ativan at home for a as needed basis, but he ran out of these quite some time ago. No indication for mental health evaluation at this point, as the patient does have multiple resources including an outpatient counselor, his family doctor, and counselor at the clinic. 7:26 AM On reassessment the patient has complete resolution of his symptoms. Patient's crying and tremulousness is completely resolved. He continues to deny any homicidal or suicidal ideations. He does not feel that mental health assessment is needed at this time, and I would agree with his sentiment clinically on reassessment. However I did reach out to mental health and discussed the case with Sneha. I did request that she or her colleagues follow-up closely with him over the phone in the next 24 to 48 hours. The patient counselor is Fantasma Ortiz. We will place a referral with our case management manager to help expedite the next appointment with him which is currently scheduled for October. The patient does have a follow-up with Dr. Le on Saturday, we encouraged the patient to continue with this. At this time with complete resolution of his symptoms, no evidence of homicidal or suicidal ideations I do feel that the patient is stable and appropriate for discharge. Mother is at bedside during the entirety of this interaction, and she agrees with the current plan. We will give the patient 2 tablets of 1 mg Ativan to go home with to use as needed. Symptoms at this time are inconsistent with dissection, PE, overdose, or other acute life-threatening etiology including sepsis. I have extensively reviewed the treatment plan and discharge instructions with the patient and their family. I have addressed all patient concerns at this time. The patient and family was made aware of what symptoms to monitor for that would warrant a return to the emergency department. Discussed the plan with the patient and family, they demonstrate verbal understanding and agreement with our assessment and plan at this time. The documentation in this chart was dictated using Animated Speech dictation software. Please excuse any dictation errors. HPI General Date/Time Provider Initiated Documentation: 10/01/20 05:53. HPI Narrative: This is a 30-year-old male with a past medical history of Crohn's disease on Humira, and intermittent episodic anxiety/panic attacks. Patient states that he woke up last evening and was completely overwhelmed. He stated that he had a dream watching his own which threw him into a panic. In spite of his best efforts as well as the efforts of his mother for organized slow breathing, and talking to the situation they have not been able to remedy his current anxiety state. He denies any homicidal or suicidal ideations, and states that he feels terrified right now but does not have a reason as to why. Most recent medication change was 1 month ago where he had his mirtazapine increased and his buspirone decreased, but he has not had any problems since then. Patient has no other complaints at this time. He denies any IV or illicit drug use. No other modifying factors. Related Data Home Medications Medication Instructions Recorded Confirmed mirtazapine See Rx Instructions .ROUTE .COMPLEX 04/17/19 10/01/20 buspirone 15 mg PO DAILY 05/20/19 10/01/20 Humira Pen Hdgaed-OV-GI Start 160 mg SUBCUT ONCE 06/16/19 10/01/20 Allergies Allergy/AdvReac Type Severity Reaction Status Date / Time No Known Allergies Allergy Unverified 10/01/20 06:05 General PALOMO: 4 Review of Systems All systems reviewed & are unremarkable except as noted in HPI and below [facility] Medical History (Updated 10/01/20 @ 06:08 by Kali Watt DO) Crohn's disease Social History Smoking/Tobacco Use Status: Never Smoking risk assessment performed?: Yes Alcohol Intake: never Drug use: Never Current gender identity: male Do you feel safe at home: Yes Do you feel safe in your relationship?: Yes Exam Narrative Exam Narrative: 1.Const: Well-nourished, Well-developed, appearing stated age 2.Eyes: PERRL, no conjunctival injection, and symmetrical lids. 3.ENT: Atraumatic external nose and ears. Moist MM. Neck: Symmetric, trachea midline, No thyromegaly. 4.CVS: +S1/S2, No murmurs or gallops. Peripheral pulses 2+ and equal in all extremities. Brisk capillary refill in all extremities. 5.RESP: Unlabored respiratory effort. Clear to auscultation bilaterally. No wheezes rales or rhonchi 6.GI: Soft, Nontender/Nondistended, No hepatosplenomegaly. No guarding or rebound. 7.MSK: Normocephalic/Atraumatic, Extremities w/o deformity or ttp No cyanosis or clubbing, Normal movement of all extremities 8.Skin: Warm, Dry. No rashes or lesions. 9.Neuro: journalism professor II-XII grossly intact. Sensation grossly intact, no focal neurologic deficits. 10.Psych: (AAO) x3. Patient is crying, tearful, notably anxious and tremulous.
[2020-10-01] MEDS: LORazepam 1 MG TAB 2 MG PO ×2 (06:10→07:26)
[2020-10-01 06:45] VITALS: BP 130/82; PULSE 103; RESP 22; O2SAT 97
--- NOTE | 2020-10-01 07:23 | NUR.NOTE ---
Nursing Note:referral to CM to move up appointment from deny
== END 2020-10-01 07:36 | disposition home or self-care (01) ==
PROVIDERS: Emergency Provider Student in an Organized Health Care Education/Training Program; PCP Family Medicine
DX: F41.0 Panic disorder [episodic paroxysmal anxiety] (principal)
CPT/HCPCS: 99283

== ENCOUNTER 2020-10-04 10:58 | Outpatient (REF) | payer OTHER, SELFPAY ==
[2020-10-04 15:33] LABS: Abs Immature Grans 0.05 10^3/uL (0.0-0.06); Absolute Basophil Count 0.06 10^3/uL (0.0-0.2); Absolute Eosinophil Count 0.04 10^3/uL (0.0-0.7); Absolute Monocyte Count 0.72 10^3/uL (0.1-0.8); Basophils % 0.5; Eosinophils % 0.3; HCT 45.5 % (40.0-50.0); Immature Grans % 0.4; Lymphocytes % 14.5; MCH 30.1 pg (27.0-33.0); MCV 91.2 fL (80-95); Monocytes % 5.7; Neutrophils % 78.6; Nucleated RBC 0 %; Platelet Count 345 10^3/uL (130-400); RBC 4.99 10^6/uL (4.36-5.78); RDW-SD 40.1 fL; WBC 12.59 10^3/uL (4.4-10.8)
[2020-10-04 15:34] LABS: Absolute Lymphocyte Count 1.83 10^3/uL (1.2-3.4)
[2020-10-04 15:54] LABS: ALT 35 U/L (16-63); AST 17 U/L (15-37); Albumin 4.5 g/dL (3.4-5.0); Alkaline Phosphatase 98 U/L (46-116); Anion Gap 11.6 mmol/L (3-11); BUN 22 mg/dL (7-18); Bilirubin, Total 1.1 mg/dL (0.2-1.0); C-Reactive Protein 0.22 mg/dL (0.0-0.3); CO2 23.4 mmol/L (21.0-32.0); CREATININE 1.3 mg/dL (0.70-1.30); Calcium 9.3 mg/dL (8.5-10.1); Chloride 103 mmol/L (98-107); Glucose 98 mg/dL (74-106); Magnesium 2.3 mg/dL (1.8-2.4); Sodium 138 mmol/L (136-145); Total Protein 7.5 g/dL (6.4-8.2)
== END 2020-10-04 10:59 | disposition home or self-care (01) ==
LOC: NCHCN 10:58
PROVIDERS: PCP Family Medicine; Visit Provider Family Medicine
DX: E83.51 Hypocalcemia (principal); K50.90 Crohn's disease, unspecified, without complications
CPT/HCPCS: 80053; 83735; 85025; 86140

== ENCOUNTER 2020-12-19 20:33 | Outpatient (REF) | payer OTHER, SELFPAY ==
--- NOTE | 2020-12-19 16:30 | SKI_PTH ---
PATIENT: Foster Gonzalez LOC: [facility] U#:[id number] AGE/SX: 30/M ROOM: RE12/19/[address]: Get Jones : 1990 BED: DIS: 12/19/2020 SPEC #: [id number] RECD: 12/20/20 12:22 STATUS: TERRY CANTRELL #: [id number] MAURICE: 12/19/20 16:[address]: Get Jones DEPT: Surgical Specimen RECD BY: Selina Navarro Tissues: 1 - SKIN BIOPSY(SHAVE/PUNCH) Procedures: SKIN LEVEL 4 Comments: [id number]
[2020-12-19 21:33] LABS: Calculated LDL 93 mg/dL (<100); Cholesterol 139 mg/dL (<200); HDL Cholesterol 32 mg/dL (40-60); Triglyceride 74 mg/dL (<150)
[2020-12-19 21:38] LABS: Hemoglobin A1C 5.4 % (<5.7)
== END 2020-12-19 20:34 | disposition home or self-care (01) ==
LOC: NCHCN 20:33
PROVIDERS: PCP Family Medicine; Visit Provider Family Medicine
DX: Z79.899 Other long term (current) drug therapy (principal); D22.5 Melanocytic nevi of trunk
CPT/HCPCS: 80061; 83036; 88305

== ENCOUNTER 2021-07-27 17:45 | Outpatient (REF) | payer OTHER, SELFPAY ==
[2021-07-27 20:14] LABS: Abs Immature Grans 0.07 10^3/uL (0.0-0.06); Absolute Basophil Count 0.04 10^3/uL (0.0-0.2); Absolute Eosinophil Count 0.15 10^3/uL (0.0-0.7); Absolute Lymphocyte Count 2.01 10^3/uL (1.2-3.4); Absolute Monocyte Count 1.31 10^3/uL (0.1-0.8); Absolute Neutrophil Count 6.12 10^3/uL (1.2-6.7); Basophils % 0.4; Eosinophils % 1.5; HCT 42.3 % (40.0-50.0); HGB 13.7 g/dL (13.5-17.5); Immature Grans % 0.7; Lymphocytes % 20.7; MCH 29.7 pg (27.0-33.0); MCHC 32.4 % (32.0-36.0); MCV 91.6 fL (80-95); MPV 10.3 fL (8.0-11.0); Monocytes % 13.5; Neutrophils % 63.2; Nucleated RBC 0 %; Platelet Count 250 10^3/uL (130-400); RBC 4.62 10^6/uL (4.36-5.78); RDW 12.4 % (11.8-14.1); RDW-SD 41.2 fL
[2021-07-27 20:15] LABS: ESR 3 mm/hr (0-15)
[2021-07-27 20:25] LABS: ALT 61 U/L (16-63); AST 25 U/L (15-37); Albumin 4.3 g/dL (3.4-5.0); Alkaline Phosphatase 98 U/L (46-116); Anion Gap 9.2 mmol/L (3-11); BUN 21 mg/dL (7-18); Bilirubin, Total 0.4 mg/dL (0.2-1.0); C-Reactive Protein 1.17 mg/dL (0.0-0.3); CO2 25.8 mmol/L (21.0-32.0); CREATININE 1.2 mg/dL (0.70-1.30); Calcium 8.8 mg/dL (8.5-10.1); Chloride 103 mmol/L (98-107); Glucose 84 mg/dL (74-106); Lipase 66 U/L (73-393); Potassium 4.1 mmol/L (3.5-5.1); Sodium 138 mmol/L (136-145); Total Protein 7.1 g/dL (6.4-8.2)
== END 2021-07-27 17:46 | disposition home or self-care (01) ==
LOC: LBN 17:45
PROVIDERS: PCP Family Medicine; Visit Provider Physician Assistant Medical
DX: R10.11 Right upper quadrant pain (principal)
CPT/HCPCS: 80053; 83690; 85652; 85025; 86140

== ENCOUNTER 2021-07-28 05:41 | Emergency (ER) | payer OTHER, SELFPAY ==
[2021-07-28 05:45] VITALS: BP 124/75; PULSE 111; RESP 18; TEMP 36.6; O2SAT 98
--- NOTE | 2021-07-28 06:00 | DI.CT_ITS ---
Exam(s) CT ABDOMEN PELVIS W EXAM: CT ABDOMEN PELVIS W CLINICAL HISTORY: R sided abd pain, hx of Chron's TECHNIQUE: Imaging Protocol: Axial computed tomography images with coronal and sagittal reformatted images were created and reviewed CONTRAST MATERIAL: Intravenous: Omnipaque 350 Contrast volume:100 mL Oral: No COMPARISON: CT CT ABDOMEN PELVIS W from 05/20/2019 FINDINGS: ABDOMEN: Lung Bases: Normal where visualized. Liver: Normal density. No measurable mass. Portal, Superior Mesenteric, and Splenic Veins: Unremarkable. Gallbladder and Biliary Tract: No radiodense calculus or dilation. Pancreas: Normal density, no abnormal calcifications or inflammatory process. Spleen: Normal. Adrenals: No masses seen. Kidneys: Normal size, contour and axis. No radiodense stones or obstructive uropathy. No masses seen. Abdominal Aorta: Abdominal portion non-dilated. Bowel: No obstruction or bowel wall thickening. No evidence of appendicitis. Peritoneal Cavity: No ascites, collection or mesenteric inflammatory response. No free air. Lymph Nodes: Within normal limits. Bones: Within normal limits for the patient's age. Soft Tissues: Unremarkable. PELVIS: Bladder: Symmetric distention, no gross wall thickening. Reproductive Organs: Unremarkable as visualized. Lymph Nodes: Within normal limits. Bones: Within normal limits for the patient's age. IMPRESSION: 1. No acute abdominal or pelvic process. 2. Results of this exam have been verbally communicated with provider. RADIATION DOSE DELIVERED: 1,106.12mGy.cm Total DLP DATA REPOSITORY: All CT scans at this facility are submitted to the National Radiology Data Registry (NRDR) Dose Index Registry (DIR) with the [employer] (ACR). RADIATION OPTIMIZATION: All CT scans at this facility use at least one of these dose optimization te chniques: automated exposure control; mA and/or kV adjustment per patient size (includes targeted exa ms where dose is matched to clinical indication); or iterative reconstruction.
--- NOTE | 2021-07-28 06:13 | ED.GENADUL_ITS ---
Discharge Plan Disposition Patient Disposition: STILL A PATIENT Condition: Improving Discharge Details Primary Care Provider: Get Jones ED Provider: Johnnie Watson Home Meds and New Rx's Prescriptions: No Action mirtazapine 7.5 mg Tablet See Rx Instructions .ROUTE .COMPLEX 0RF Label Comments: pt states he vomited after taking Rx Instructions: pt unsure of dose quetiapine 100 mg tablet 100 mg BID 0RF Label Comments: TAKE TWO TABLETS BY MOUTH TWICE A DAY buspirone 10 mg Tablet 15 mg PO DAILY 0RF Rx Instructions: Patient unsure of dose Humira Pen Ybykga-BV-PZ Start 40 mg/0.8 mL Pen Injector Kit 160 mg SUBCUT ONCE 0RF Medical Decision Making This is a 31-year-old male with a history of Crohn's disease. He presents from home with his mother. He notes a gradual onset of upper and right-sided abdominal pain over the course of the day yesterday. States he was seen at local urgent care with the suggestion for further work-up, but now presents to the ER with increasing pain throughout the night. Patient arrives afebrile, slightly tachycardic with a pulse of 110, normotensive. His exam reveals tenderness in the upper and right side of the abdomen with mild rebound present. Differential diagnosis includes appendicitis, exacerbation of Crohn's disease, diverticulitis, foregut pathology such as biliary colic or pancreatitis. Patient IV access established, given fluids and acetaminophen, referred for laboratory testing and oral and IV contrast enhanced CT imaging. At change of shift, patient will be signed out to Dr. Haylee Evans. Please see his note regarding final impression and disposition. Lab Data Lab results reviewed: Yes I reviewed the patient's lab results. Labs: Laboratory Results - last 24 hr 07/28/21 07/28/21 07/28/21 05:55 05:55 05:55 WBC 12.00 H RBC 4.94 Hgb 14.6 Hct 44.5 MCV 90.1 MCH 29.6 MCHC 32.8 RDW 12.3 Plt Count 264 MPV 10.2 Immature Gran % 0.8 Neutrophils % 69.7 Lymphocytes % 15.0 Monocytes % 12.7 Eosinophils % 1.5 Basophils % 0.3 Nucleated RBC % 0 Absolute Neutrophils 8.36 H Absolute Lymphocytes 1.80 Absolute Monocytes 1.52 H Absolute Eosinophils 0.18 Absolute Basophils 0.04 VBG Lactate 0.8 Sodium 139 Potassium 3.8 Chloride 102 Carbon Dioxide 24.5 Anion Gap 12.5 H BUN 18 Creatinine 1.3 Estimated GFR/1.73 m2 >= 60.00 Glucose 104 Calcium 8.4 L Magnesium 2.2 Total Bilirubin 0.6 AST 22 ALT 48 Alkaline Phosphatase 103 Total Protein 7.4 Albumin 4.1 Urine Color Urine Clarity Urine pH Ur Specific [place] Urine Protein Urine Ketones Urine Blood Urine Nitrite Urine Bilirubin Urine Urobilinogen Ur Leukocyte Esterase Urine RBC Urine WBC Ur Epithelial Cells Urine Crystals Urine Bacteria Urine Casts Urine Mucus Ur Culture Indicated? Urine Glucose 07/28/21 06:30 WBC RBC Hgb Hct MCV MCH MCHC RDW Plt Count MPV Immature Gran % Neutrophils % Lymphocytes % Monocytes % Eosinophils % Basophils % Nucleated RBC % Absolute Neutrophils Absolute Lymphocytes Absolute Monocytes Absolute Eosinophils Absolute Basophils VBG Lactate Sodium Potassium Chloride Carbon Dioxide Anion Gap BUN Creatinine Estimated GFR/1.73 m2 Glucose Calcium Magnesium Total Bilirubin AST ALT Alkaline Phosphatase Total Protein Albumin Urine Color Yellow Urine Clarity Clear Urine pH 6.0 Ur Specific [place] >= 1.030 H Urine Protein Negative Urine Ketones Negative Urine Blood Moderate H Urine Nitrite Negative Urine Bilirubin Negative Urine Urobilinogen 0.2 Ur Leukocyte Esterase Negative Urine RBC 10-20 H Urine WBC 0-2 Ur Epithelial Cells Rare Urine Crystals Negative Urine Bacteria Rare Urine Casts Negative Urine Mucus Moderate Ur Culture Indicated? No Urine Glucose Negative HPI General Mode of arrival: ambulatory . Date/Time Provider Initiated Documentation: 07/28/21 05:59 . Limitations to Documentation: no limitations . Information obtained by: patient . History of Present Illness 31 year old M presents to the emergency department with the chief complaint of Day 2 of abdominal pain, described as moderate, Quality is described as dull and constant, and is localized to the abdomen and right. Patient reports radiation to back. Patient started experiencing this day(s) and it has been constant. No exacerbating factors reported . Patient notes loss of appetite; denies fever/chills and nausea/vomiting. Patient did receive the following treatments prior to arrival, none Related Data Home Medications Medication Instructions Recorded Confirmed mirtazapine 7.5 mg tablet See Rx Instructions .ROUTE .COMPLEX 04/17/19 07/28/21 buspirone 10 mg tablet 15 mg PO DAILY 05/20/19 07/28/21 adalimumab 40 mg/0.8 mL 160 mg SUBCUT ONCE 06/16/19 07/28/21 subcutaneous pen kit (Humira Pen Crohn's-[facility] Colitis-Hid Sup Starter) quetiapine 100 mg tablet 100 mg BID 07/28/21 07/28/21 Allergies Allergy/AdvReac Type Severity Reaction Status Date / Time No Known Allergies Allergy Unverified 10/01/20 06:05 General Stated Complaint: Abd Prob PALOMO: 3 Review of Systems Narrative: No fever or chills. Worse with movement, improved with rest. Was 1 week late taking his Humira yesterday. 8 systems reviewed and otherwise negative PFSH All Active Problems (Updated 10/01/20 @ 06:08 by Kali Watt DO) Anxiety (Chronic) Medical History (Updated 10/01/20 @ 06:08 by Kali Watt DO) Crohn's disease Social History Smoking/Tobacco Use Status: Never Smoking risk assessment performed?: Yes Alcohol Intake: never Drug use: Never Current gender identity: male Do you feel safe at home: Yes Do you feel safe in your relationship?: Yes Exam Narrative Exam Narrative: GEN: awake, alert, oriented 3. Pleasant, well groomed, interactive. HEAD: Normocephalic, atraumatic ENT: Mucous membranes dry, oropharynx unremarkable, External ear exam unremarkable EYES: PERRL, EOMI NECK: Full ROM, no JOANA, no menigismus CHEST/RESP: Nontender, clear to auscultation bilateral, no wheeze/rhonchi/rales CARDIOVASCULAR: Regular and tachycardic, no murmur, rub marbella. 2+ Rad pulse bilateral ABDOMEN: Soft, tender predominantly right side of abdomen with mild rebound, no mass. +Bowel sounds EXT: Full ROM, no edema, no rash Neuro: Grossly normal neurologic exam, conversant, interactive. Psych: Speech fluent, thoughts congruent, affect normal Course Vital Signs Vital signs: Vital Signs Temperature 36.6 C 07/28/21 05:45 Pulse 111 H 07/28/21 05:45 Respiratory Rate 18 07/28/21 05:45 Blood Pressure 124/75 07/28/21 05:45 Pulse Oximetry 98 07/28/21 05:45 Temperature 36.6 C 07/28/21 05:45 Temperature Source Tympanic 07/28/21 05:45 Pulse 111 H 07/28/21 05:45 Respiratory Rate 18 07/28/21 05:45 Respiratory Effort 07/28/21 05:47 Blood Pressure 124/75 07/28/21 05:45 Pulse Oximetry 98 07/28/21 05:45 Oxygen Delivery Method Room Air 07/28/21 05:45 Oxygen Flow Rate 0 07/28/21 05:45 Pain Level 7 07/28/21 05:45 Sign Out Sign Out Data: Sign Out Comment: Hx Chron's, R abd pain, followup CT/labs Last updated by Johnnie Watson MD at 07/28/21 06:54
[2021-07-28] MEDS: Normal Saline 1,000 ML 125 ML IV ×2 (06:22→08:24)
[2021-07-28 06:26] LABS: Lactate 0.8 mmol/L (0.6-1.4)
[2021-07-28] MEDS: ACETAMINOPHEN 1,000 MG/100 ML BTL 400 MG IVPB (06:26)
[2021-07-28 06:28] LABS: Absolute Basophil Count 0.04 10^3/uL (0.0-0.2); Absolute Eosinophil Count 0.18 10^3/uL (0.0-0.7); Absolute Monocyte Count 1.52 10^3/uL (0.1-0.8); Absolute Neutrophil Count 8.36 10^3/uL (1.2-6.7); Basophils % 0.3; Eosinophils % 1.5; HCT 44.5 % (40.0-50.0); HGB 14.6 g/dL (13.5-17.5); Immature Grans % 0.8; MCH 29.6 pg (27.0-33.0); MCHC 32.8 % (32.0-36.0); MCV 90.1 fL (80-95); MPV 10.2 fL (8.0-11.0); Monocytes % 12.7; Neutrophils % 69.7; Nucleated RBC 0 %; Platelet Count 264 10^3/uL (130-400); RBC 4.94 10^6/uL (4.36-5.78); RDW 12.3 % (11.8-14.1); RDW-SD 40.7 fL
[2021-07-28 06:36] LABS: Bilirubin Negative (Negative); Blood Moderate (Negative); Clarity Clear (Clear); Glucose Negative (Negative); Ketones Negative (Negative); Leukocyte Esterase Negative (Negative); Nitrite Negative (Negative); Specific Gravity >= 1.030 (1.005-1.025); Urobilinogen 0.2 EU/dL (Up TO 0.2)
[2021-07-28 06:48] LABS: Bacteria Rare HPF (Negative); C & S Indicated? No; Casts Negative LPF (Negative); Crystals Negative HPF (Negative); Epithelial Cells Rare HPF (Negative); Mucus Moderate (Negative); WBC 0-2 HPF (0-5)
[2021-07-28 06:56] LABS: ALT 48 U/L (16-63); AST 22 U/L (15-37); Albumin 4.1 g/dL (3.4-5.0); Alkaline Phosphatase 103 U/L (46-116); Anion Gap 12.5 mmol/L (3-11); BUN 18 mg/dL (7-18); Bilirubin, Total 0.6 mg/dL (0.2-1.0); CO2 24.5 mmol/L (21.0-32.0); CREATININE 1.3 mg/dL (0.70-1.30); Calcium 8.4 mg/dL (8.5-10.1); Chloride 102 mmol/L (98-107); Glucose 104 mg/dL (74-106); Magnesium 2.2 mg/dL (1.8-2.4); Potassium 3.8 mmol/L (3.5-5.1); Sodium 139 mmol/L (136-145); Total Protein 7.4 g/dL (6.4-8.2)
[2021-07-28 07:04] LABS: Lipase 78 U/L (73-393)
--- NOTE | 2021-07-28 08:26 | NUR.NOTE ---
Nursing Note:Pt received all of first bag of fluid at free flow faster than 125ml/hr. Current provider Dr. Bragg happy about more bolus rate for first bag since Pt came in tachy slightly originally and wanted next bag hung at 125ml/hr to continue gentle hydration. Second bag of fluid hung at 125ml/hr on pump.
--- NOTE | 2021-07-28 08:34 | DI.VRAD_ITS ---
PROCEDURE INFORMATION: Exam: CT Abdomen And Pelvis With Contrast Exam date and time: 07/28/2021 7:58 AM Age: 31 years old Clinical indication: Abdominal pain; Patient HX: R sided pain, HX of crohn's TECHNIQUE: Imaging protocol: Computed tomography of the abdomen and pelvis with contrast. COMPARISON: CT ABDOMEN PELVIS W 05/20/2019 5:27 PM FINDINGS: Lungs: Visualized lung bases are clear. No pleural effusions. Liver: Unremarkable. Gallbladder and bile ducts: Unremarkable. No calcified gallstones. No intrahepatic or extrahepatic biliary ductal dilation. Pancreas: Unremarkable. Spleen: Unremarkable. No splenomegaly. Adrenal glands: Unremarkable. No masses. Kidneys and ureters: Unremarkable. Normal and symmetric renal enhancement. No hydronephrosis or hydroureter. Stomach and bowel: The stomach is nondilated. The small and large bowel are normal in caliber. Oral contrast has reached the proximal sigmoid colon at the time of imaging. No mural thickening or other inflammatory changes are apparent in the bowel. There is increased submucosal fat deposition in the terminal ileum, cecum, and proximal ascending colon, and the descending colon appears somewhat tubular and thick-walled. These findings can be seen as the sequela of chronic inflammation. Appendix: The appendix is not definitively identified, however there are no pericecal inflammatory changes to raise concern for acute appendicitis. Intraperitoneal space: Unremarkable. No ascites, fluid collection, or pneumoperitoneum. Retroperitoneal space: Unremarkable. No retroperitoneal collection or mass. Vasculature: Unremarkable. The abdominal aorta is normal in caliber. Lymph nodes: No pathologically enlarged lymph nodes. Urinary bladder: Unremarkable. Reproductive: Unremarkable. Normal size prostate gland. Bones/joints: No suspicious osseous lesions. Soft tissues: Unremarkable. Other findings: None. IMPRESSION: 1. No acute abnormality in the abdomen or pelvis. No definitive evidence of active inflammatory bowel disease. 2. Additional incidental/nonemergent findings are discussed in the body of the report. Dictated and Authenticated by: Viviana Guan MD. Ordering:PHU Blair MD
--- NOTE | 2021-07-28 08:43 | ED.PROG_ITS ---
Date of service: 07/28/21 Time of Service: 08:43 Medical Decision Making Patient resting comfortably no acute distress. Mildly elevated white count afebrile nontoxic. Feeling much better after medications and fluids. Did have some discomfort with urination when giving urine sample, given RBCs now feeling better consider passed kidney stone. CT abdomen pelvis unremarkable for intra- abdominal pathology such as infection obstruction perforation. Patient has follow-up with his GI team for repeat colonoscopy next week. Is back on his biologic immunosuppressive. Patient feels better and would like to go home. Given home care instructions and return precautions. Sign Out Sign Out Data: Sign Out Comment: Hx Chron's, R abd pain, followup CT/labs Last updated by Johnnie Watson MD at 07/28/21 06:54 Discharge Plan Disposition Patient Disposition: HOME Condition: Improving Discharge Details Clinical Impression: Abdominal pain, Hematuria Primary Care Provider: [facility] ED Provider: Ash Bell Home Meds and New Rx's Prescriptions: Continued mirtazapine 7.5 mg Tablet See Rx Instructions .ROUTE .COMPLEX 0RF Label Comments: pt states he vomited after taking Rx Instructions: pt unsure of dose quetiapine 100 mg tablet 100 mg BID 0RF Label Comments: TAKE TWO TABLETS BY MOUTH TWICE A DAY buspirone 10 mg Tablet 15 mg PO DAILY 0RF Rx Instructions: Patient unsure of dose Humira Pen Nqachz-SV-WE Start 40 mg/0.8 mL Pen Injector Kit 160 mg SUBCUT ONCE 0RF Discharge Instructions Instructions: Hematuria (ED), Abdominal Pain (ED) Additional Instructions: Please return to the emergency department he had any worsening symptomatology specifically worsening abdominal pain nausea vomiting fevers or urinary symptoms. Please follow-up with your GI specialist as scheduled. Please take your medications as prescribed.
[2021-07-28 09:08] VITALS: BP 110/74; PULSE 91; RESP 17; TEMP 36.7; O2SAT 98
== END 2021-07-28 09:08 | disposition home or self-care (01) ==
PROVIDERS: Emergency Medicine; Emergency Provider Emergency Medicine; PCP Family Medicine
DX: R10.811 Right upper quadrant abdominal tenderness (principal); R10.821 Right upper quadrant rebound abdominal tenderness; R31.9 Hematuria, unspecified; R00.0 Tachycardia, unspecified; D72.829 Elevated white blood cell count, unspecified; R30.0 Dysuria
CPT/HCPCS: 36415; 80053; 83690; 96361; 96374; 99284; 74177; 81003; 81015; 83605; 83735; 85025; J0131

== ENCOUNTER 2021-09-19 18:51 | Outpatient (REF) | payer OTHER, SELFPAY ==
[2021-09-19 19:24] LABS: Hemoglobin A1C 5.4 % (<5.7)
[2021-09-19 19:28] LABS: Calculated LDL 78 mg/dL (<100); Cholesterol 170 mg/dL (<200); HDL Cholesterol 27 mg/dL (40-60); Triglyceride 328 mg/dL (<150)
== END 2021-09-19 18:52 | disposition home or self-care (01) ==
LOC: NCHCN 18:51
PROVIDERS: PCP Family Medicine; Visit Provider Family Medicine
DX: Z79.899 Other long term (current) drug therapy (principal)
CPT/HCPCS: 80061; 83036

== ENCOUNTER 2021-11-05 16:05 | Emergency (ER) | payer OTHER, SELFPAY ==
[2021-11-05 16:08] VITALS: BP 142/86; PULSE 90; RESP 14; TEMP 37.2; O2SAT 99
--- NOTE | 2021-11-05 16:37 | W.ED.GENAD ---
Discharge Plan Disposition Patient Disposition: HOME Condition: Stable Discharge Details Clinical Impression: Foreign body of left eye Primary Care Provider: Get [facility] ED Provider: Selina Em Home Meds and New Rx's Prescriptions: Continued mirtazapine 7.5 mg Tablet See Rx Instructions .ROUTE .COMPLEX Label Comments: pt states he vomited after taking Rx Instructions: pt unsure of dose quetiapine 100 mg tablet 100 mg BID Label Comments: TAKE TWO TABLETS BY MOUTH TWICE A DAY buspirone 10 mg Tablet 15 mg PO DAILY Rx Instructions: Patient unsure of dose Humira Pen Xcqzvz-LG-TF Start 40 mg/0.8 mL Pen Injector Kit 160 mg SUBCUT ONCE Discharge Instructions Additional Instructions: Should you have persistent irritation, you may use erythromycin 3 times daily,-strep If this irritation lasts greater than 48 hours, please follow-up with your manager specialty or return to the emergency department for reassessment Wear protective glasses Referrals: Get Jones [Primary Care Provider] - Medical Decision Making Foreign body removed with cotton-tipped applicator Removed without incident Has erythromycin known new abrasion noted Ophthalmology follow-up should he have persistent symptoms greater than 48 hours Return precautions discussed and patient expressed understanding Visual acuity reviewed without acute abnormality Medical Records Medical records reviewed: Yes I reviewed the patient's medical records. HPI General Date/Time Provider Initiated Documentation: 11/05/21 16:12. HPI Narrative: This is a 31-year-old male with history of Crohn's presents with report of foreign body in his left eye. He was doing some with carving and felt a piece of sawdust got into his eyes. He denies high impact injury. He denies any vision changes but states that he has some discomfort when he and blood for . He denies any current corrective lens use. Event occurred just prior to arrival. Related Data Home Medications Medication Instructions Recorded Confirmed mirtazapine 7.5 mg tablet See Rx Instructions .Route .COMPLEX 04/17/19 11/05/21 buspirone 10 mg tablet 15 mg PO DAILY 05/20/19 11/05/21 adalimumab 40 mg/0.8 mL 160 mg subcut ONCE 06/16/19 11/05/21 subcutaneous pen kit (Humira Pen Crohn's-[facility] Colitis-Hid Sup Starter) quetiapine 100 mg tablet 100 mg BID 07/28/21 11/05/21 Allergies Allergy/AdvReac Type Severity Reaction Status Date / Time No Known Allergies Allergy Unverified 11/05/21 16:10 General Stated Complaint: EyeProblem PALOMO: 4 Review of Systems All systems reviewed & are unremarkable except as noted in HPI and below PFSH All Active Problems (Updated 11/05/21 @ 16:39 by ALIN Bgogs) Foreign body of left eye (Acute) Umbilical hernia (Acute) Medical History Anxiety Crohn's disease Insomnia related to another mental disorder Left varicocele Migraine Mood disorder OCD (obsessive compulsive disorder) Pectus carinatum Social History Smoking/Tobacco Use Status: Never Smoking risk assessment performed?: Yes Alcohol Intake: never Drug use: Never Substance use type: does not use Current gender identity: male Do you feel safe at home: Yes Do you feel safe in your relationship?: Yes Exam Const General: cooperative, comfortable and no acute distress Eyes Pupils: PERRL Other: Foreign body noted under left upper lid No fluorescein uptake Course Vital Signs Vital signs: Vital Signs Temperature 37.2 C 11/05/21 16:08 Pulse 90 11/05/21 16:08 Respiratory Rate 14 11/05/21 16:08 Blood Pressure 142/86 H 11/05/21 16:08 Pulse Oximetry 99 11/05/21 16:08 Temperature 37.2 C 11/05/21 16:08 Temperature Source Temporal Artery Scan 11/05/21 16:08 Pulse 90 11/05/21 16:08 Respiratory Rate 14 11/05/21 16:08 Respiratory Effort Non-Labored 11/05/21 16:10 Blood Pressure 142/86 H 11/05/21 16:08 Blood Pressure Position Sitting 11/05/21 16:08 Pulse Oximetry 99 11/05/21 16:08 Oxygen Delivery Method Room Air 11/05/21 16:08 Oxygen Flow Rate 0 11/05/21 16:08 Pain Level 0 11/05/21 16:08
== END 2021-11-05 16:40 | disposition home or self-care (01) ==
PROVIDERS: Emergency Provider Physician Assistant; PCP Family Medicine
DX: T15.92XA Foreign body on external eye, part unspecified, left eye, initial encounter (principal); X58.XXXA Exposure to other specified factors, initial encounter; Y93.D9 Activity, other involving arts and handcrafts
CPT/HCPCS: 65205; 99283

== ENCOUNTER 2021-11-06 02:53 | Outpatient (CLI) | payer OTHER, SELFPAY ==
[2021-11-06 12:42] LABS: Source Nasal/Nares
[2021-11-06 15:37] LABS: COVID-19 PCR Negative (Negative)
== END 2021-11-06 02:54 | disposition home or self-care (01) ==
PROVIDERS: PCP Family Medicine; Visit Provider Surgery
DX: Z20.822 Contact with and (suspected) exposure to COVID-19 (principal); Z01.818 Encounter for other preprocedural examination
CPT/HCPCS: 87635

== ENCOUNTER 2021-11-08 06:05 | Day surgery (SDC) | payer OTHER, SELFPAY ==
[2021-11-08] VITALS (11 sets, daily range): BP systolic 91–131; BP diastolic 42–74; PULSE 65–90; RESP 11–21; TEMP 36.3–36.8; O2SAT 95–97; BMI 29.1
--- NOTE | 2021-11-08 06:10 | ROE_ITS ---
Date of service: 11/08/21 Time of Service: 08:16 Operative Note Operative Note DATE OF PROCEDURE: 11/08/21 PRE-OP DIAGNOSIS: Umbilical Hernia POST-OP DIAGNOSIS: same PROCEDURE: Umbilical Hernia repair with mesh SURGEON: Anna Villagomez INSULATOR APPRENTICE: Awa Feng ANESTHESIA TYPE: Local By Surgeon, General LMA/ETT and Primary Nerve Block Refer to Anesthesia Record ESTIMATED BLOOD LOSS: 25 PATHOLOGY: none sent COMPLICATIONS: None Patient was transported to: PACU Patient's condition: stable Implants: Ventralex 4.3 cm mesh: LOT- [id number] REF- [id number] 2023-03-26 Indications: Mr. Gonzalez is a pleasant 31-year-old male who has a small umbilical hernia.? We reviewed the procedure of open umbilical hernia repair with mesh.? We reviewed the complications and risks.? Because of his Humira injections we will try to schedule surgery a few days prior to his Humira injection so that his immune system is not at its lowest.? His risk for infection is increased due to the fact that he is on Humira. Risks, benefits and complications have been reviewed. Complications include but are not limited to bleeding, pain, infection, injury to underlying structures like bowel and adverse reaction to the medication.? Questions were entertained and answered to their satisfaction and they wished to proceed. No guarantees were given or implied. Proceed with umbilical hernia repair with mesh Findings: 1 . 2 cm round defect Procedure Description: After informed consent was obtained the patient was taken to the operating room and placed in a supine position. Monitors and SCDs were applied and a timeout was done. The patient's name, date of , procedure type, procedure site, allergies to medications, preoperative antibiotic, and DVT prophylaxis were all reviewed. Fire risk was assessed. Next anesthesia did a bilateral rectus block under ultrasound guidance. Please see their separate dictation. Once anesthesia was done the abdomen was prepped and draped in a sterile surgical fashion. 0.25% Bupivacaine was injected into the dermis just under the umbilicus. An incision was made with a 10 blade under the umbilicus. Dissection was done with cautery through the subcutaneous tissues and through the umbilical stalk down to the fascia. There was minimal fat between the dermis and the fascia. As I was dissecteing through the umbilical stalk I made an incision into the skin. The hernia defect was identified and measured 1.2 cm x 1 cm. The hernia sac was opened and the peritoneum was swept for adhesions. No adhesions were noted. A 4.3 cm round mesh was then placed under the peritoneum and secured in 4 quarters with 2-0 Proline. Once the mesh was secured the tissues were irrigated with some normal saline. No bleeding was identified. The fascia was closed over the mesh with 2 vicryl running suture. 2-0 Vicryl was used to secure the umbilicus down to the fascia. The skin just below the umbilicus was trimmed to remove the hole I made. The dermis was re- approximated with interrupted 2-0 proline. The skin was cleaned and dried and mastasol and steri-strips were applied. The patient was woken up and taken back to recovery in stable condition. There were no immediate complications. Sponge, instrument and needle counts were correct at the end of the case x2.
--- NOTE | 2021-11-08 06:15 | W.PM.DSUDISC ---
Discharge Plan Disposition Patient Disposition: HOME Condition: Good Discharge Details Reason For Visit: umbilical hernia Attending Provider: Anna Villagomez Primary Care Provider: Get [facility] Home Meds and New Rx's Prescriptions: Continued mirtazapine 7.5 mg Tablet See Rx Instructions .ROUTE .COMPLEX Label Comments: pt states he vomited after taking Rx Instructions: pt unsure of dose quetiapine 100 mg tablet 100 mg BID Label Comments: TAKE TWO TABLETS BY MOUTH TWICE A DAY buspirone 10 mg Tablet 15 mg PO DAILY Rx Instructions: Patient unsure of dose Humira Pen Xppnix-BB-PC Start 40 mg/0.8 mL Pen Injector Kit 160 mg SUBCUT ONCE Discharge Instructions Additional Instructions: Activity at Home after surgery: 1. Make sure you walk outside at least 4 times per day 2. You should be able to climb a flight of stairs 3. No driving while in pain or taking pain medications 4. No strenuous activity or heavy lifting (no more then 10 lb) for 4 weeks Diet, Nutrition, & wound healin. Avoid alcohol until after you are recovered from your surgery 2. Make sure to eat plenty of lean protein (meat, fish, eggs, cottage cheese, beans) 3. Eat a variety of fruits and vegetables. Eat plenty of high fiber foods to avoid constipation. 4. Drink plenty of liquids to stay hydrated and avoid constipation Pain Medications: 1. Tylenol 650mg every 6 hours as needed and Ibuprofen 600 mg every 6 hours as needed. You may alternate between the 2 medications every 3 hours 2. If a narcotic has been prescribed take as directed only for breakthrough pain For Constipation: 1. Take Milk of Magnesia or MiraLax as needed for constipation Other: 1. You may shower daily. Do not scrub the incisions 2. Do not soak the incisions for 1 week 3. You may alternate ice and heat as needed for pain and swelling Wound Care: 1. Keep the incisions clean and dry Please call our office if you develop: 1. Fevers >101.5 2. Nausea or Vomiting 3. Worsening pain 4. Redness and thick discharge from the wounds If after hours please call the Hospital at and ask to speak to the on-call surgeon Referrals: Awa Feng PA [PHYSICIANS PERFORMANCE REPORTER] - 11/23/21 9:30 am Activity:: as above Diet:: As Tolerated Discharge Orders Discharge Orders: Discharge Order (Routine); Ordered 11/08/21 Ordered By: Anna Villagomez
[2021-11-08] MEDS: Acetaminophen 500 MG TAB 1000 MG PO (06:33)
[2021-11-08] MEDS: Celecoxib 200 MG CAP PO (06:34)
[2021-11-08] MEDS: Lactated Ringers 1,000 ML 80 ML IV (06:35)
[2021-11-08] MEDS: Gabapentin 300 MG CAP PO (06:35)
--- NOTE | 2021-11-08 06:51 | ANES.PREOP_ITS ---
General Info Date of Service Date Performed: 11/08/21 Height: 6 ft 2 in Weight: 102.9 kg Body Mass Index (BMI): 29.1 Surgical Procedure: Operation Date: 11/08/21 07:40 Proposed Procedure Side Surgeon p Herniorrhaphy Umbilical w/Mesh Anna Villagomez MD Meds Allergies and Home Medications Allergies Allergy/AdvReac Type Severity Reaction Status Date / Time No Known Allergies Allergy Unverified 11/08/21 06:16 Home Medication Medication Instructions Recorded mirtazapine 7.5 mg tablet See Rx Instructions .Route .COMPLEX 04/17/19 buspirone 10 mg tablet 15 mg PO DAILY 05/20/19 adalimumab 40 mg/0.8 mL 160 mg subcut ONCE 06/16/19 subcutaneous pen kit [facility] quetiapine 100 mg tablet 100 mg BID 07/28/21 Current Visit Medications: Current Medications Generic Name Dose Route Start Last Admin Trade Name Freq PRN Reason Stop Dose Admin Acetaminophen 1,000 mg 11/08/21 06:00 11/08/21 06:33 Acetaminophen 500 Mg Tab PO 12/07/21 23:59 1,000 mg PREOP DEVEN Administration Celecoxib 200 mg 11/08/21 06:00 11/08/21 06:34 Celecoxib 200 Mg Cap PO 12/07/21 23:59 200 mg PREOP DEVEN Administration Gabapentin 300 mg 11/08/21 06:00 11/08/21 06:35 Gabapentin 300 Mg Cap PO 12/07/21 23:59 300 mg PREOP DEVEN Administration Ringer's Solution 1,000 mls @ 80 mls/hr 11/08/21 06:00 11/08/21 06:35 IV 12/07/21 23:59 80 mls/hr INFUSION DEVEN Administration Cefazolin Sodium/Dextrose 2 gm in 50 mls @ 100 mls/hr 11/08/21 06:00 Ancef Duplex IVPB 12/07/21 23:59 PREOP DEVEN Ondansetron HCl 4 mg/ Sodium 52 mls @ 200 mls/hr 11/08/21 06:16 Chloride IVPB Q6H PRN PRN IV Miscellaneous Supplies 1 each 11/08/21 06:00 Iv Access IV 12/07/21 23:59 DIRECTED DEVEN Sodium Chloride 0 ml 11/08/21 06:00 Normal Saline Flush 10 Ml Syr IV 12/07/21 23:59 PRN PRN Sodium Chloride 0 ml 11/08/21 06:00 Normal Saline 10 Ml Vial IJ 12/07/21 23:59 DIRECTED PRN Sterile Water 0 ml 11/08/21 06:00 Water,Injection,Sterile 10 Ml Vial IJ 12/07/21 23:59 DIRECTED PRN Tramadol HCl 50 mg 11/08/21 06:16 Tramadol 50 Mg Tab PO Q6H PRN PRN Pain PFSH Active Problems Active Problems: Problem Status Onset Code Umbilical hernia K42.9 Foreign body of left eye T15.92XA Medical History Medical History Anxiety Crohn's disease Insomnia related to another mental disorder Left varicocele Migraine Mood disorder OCD (obsessive compulsive disorder) Pectus carinatum Surgical History Surgical History History of colonoscopy History of esophagogastroduodenoscopy (EGD) Tobacco Smoking/Tobacco Use Status: Never Alcohol Alcohol Intake: never Substance Use Substance use: Never Substance use type: does not use Vital Signs and Lab Results Vital Signs Most Recent Vital Signs in EMR: Most Recent Vital Signs Temp Pulse Resp BP Pulse Ox 36.8 C 90 18 131/74 97 11/08/21 06:19 11/08/21 06:19 11/08/21 06:19 11/08/21 06:19 11/08/21 06:19 Lab Results Blood Type / Crossmatch: No Data to Display Complete Blood Count: No Data to Display Complete Metabolic Panel: No Data to Display Liver Function Panel: No Data to Display Coagulation Panel: No Data to Display Cardiac Panel: No Data to Display Arterial Blood Gas: No Data to Display Venous Blood Gas: No Data to Display Pancreas Panel: No Data to Display Thyroid Panel: No Data to Display Infectious Disease: Coronavirus (COVID-19)(PCR) Negative (Negative) 11/06/21 10:15 Coronavirus 2019 Source Nasal/Nares 11/06/21 10:15 Blood Cultures: No Data to Display Toxicology Panel: No Data to Display Anesthesia Assessment and Plan Anesthesia History Personal History: No History of Anesthesia Complications Family History: No Family History of Anesthesia Complications Exercise Tolerance Exercise Tolerance: Metabolic Equivalents>4 Pertinent Negatives Pertinent Negatives: No Symptoms of GERD, No Major Cardiovascular Symptoms or Complaints, No Major Pulmonary Symptoms or Complaints and No History of CVA/TIA Cardiac & Pulmonary Exam Cardiac Exam: Normal S1/S2 Heart Sounds Pulmonary Exam: Clear Bilateral Breath Sounds Implantable Cardiac Device Does patient have a Pacemaker or an ICD?: No Airway Exam Known Difficult Airway: No Mallampati Class: 2 Mouth Opening: Normal (> 3cm) Thyromental Distance: Greater than 3 cm Neck Range of Motion: Full ROM Neck Circumference: Normal Teeth Condition: Normal Dentition ASA Classification ASA Score: ASA 2 Emergency Case?: No NPO Status NPO Status: NPO Clears >2 hours, Solids >8 hours Anesthesia Plan Resuscitation Status: Full Code Anesthesia Technique: General Anesthesia Airway Planned: LMA Pain Management: Surgeon and patient request nerve block Monitors Used: Standard Monitors
[2021-11-08] MEDS: ceFAZolin 2 GM/50 ML BAG IVPB (07:29)
[2021-11-08] MEDS: Bupivacaine 0.25% Pres-Free 30 ML VIAL (07:59)
--- NOTE | 2021-11-08 08:11 | W.ANESNERVE ---
Nerve Block Single Injection Procedure Date and Time Date Performed: 11/08/21 Procedure Start: 07:33 Location Where Procedure Performed Procedure Location: Operating Room Procedure Stop: 07:39 Reason Performed: Postoperative Analgesia Requesting Provider: Anna Villagomez Timeout Performed Timeout Performed: Yes Monitoring Used ECG, Blood Pressure, SpO2 and ETCO2 Sterility Sterility: Hand Hygiene, Surgical Cap, Surgical Mask, Sterile Gloves, Eye Protection and Chlorhexidine Sedation Given During Procedure Sedation Given (Indicate Dose Given): No Sedation given Patient Mental Status Patient Mental Status: Performed under general anesthesia Nerve Block 1st Nerve Block: Laterality: Bilateral Block Type: Rectus Sheath (Bilateral) Needle / Catheter Used: 100mm SonoPlex II Local Anesthetic Bolus (Indicate Dose Given): Injected in 3-5ml increments after negative blood aspiration, Half of Total block solution given into each side and Bupivacaine 0.5% Dose:: 30 ml Additives (Indicate Dose Given): Precedex Dose:: 100 mcg Ultrasound: Sterile probe cover and gel used Ultrasound Image Saved?: Yes Nerve Stimulator: Not Used Paresthesia: None Post Procedure Pain score (0-10): 0 Procedure Tolerated: No Complications and Patient tolerated well Procedure Outcome: Successful Performed By: Felix Bean
--- NOTE | 2021-11-08 11:11 | W.ANESPOSTOP ---
Postoperative Evaluation Date, Time and Location Date Performed: 11/08/21 Time Performed: 11:11 Patient Location: Other Vital Signs Most Recent Imported Vital Signs: Most Recent Vital Signs Temp Pulse Resp BP Pulse Ox 36.3 C L 65 16 99/66 L 97 11/08/21 10:11 11/08/21 10:11 11/08/21 10:11 11/08/21 10:11 11/08/21 10:11 Pain Score Most Recent Pain Score: Most Recent Pain Score Pain Level 0 11/08/21 10:11 Assessment Mental Status: Awake (Alert & Oriented to Patient Baseline) Airway and Respiratory Function: Patent airway with normal (patient baseline) respiratory exam Cardiovascular Function: Hemodynamically Stable Hydration Status: Adequately Hydrated Nausea & Vomiting: No Nausea or Vomiting Pain: Pt. Denies Any Pain Peripheral Nerve Block: Regional nerve block not resolved at time of post operative discharge Postoperative Comments:: Patient discharged prior to anesthesia being able to see the patient. Per RN he was doing fine. I called the patient and he denied any questions or concerns at the moment. He did have some double vision waking up but reported that it has resolved. He denies any painful or scratchy eyes. I educated him to contact oncall anesthesia if any anesthetic concerns (Numbers provided in anesthesia discharge document).
== END 2021-11-08 11:00 | disposition home or self-care (01) ==
PROVIDERS: PCP Family Medicine; Visit Provider Surgery
PROC: (CPT 49585; principal; 2021-11-08 07:30)
DX: K42.9 Umbilical hernia without obstruction or gangrene (principal); K50.90 Crohn's disease, unspecified, without complications; F41.9 Anxiety disorder, unspecified; G43.909 Migraine, unspecified, not intractable, without status migrainosus; Q67.7 Pectus carinatum
CPT/HCPCS: 49585; 76942; C1781; J0690; J1100; J1885; J2250; J2405; J2704; J3010

== ENCOUNTER 2022-04-08 10:31 | Emergency (ER) | payer OTHER, SELFPAY ==
[2022-04-08 10:34] VITALS: BP 144/76; PULSE 97; RESP 18; TEMP 37; O2SAT 98
[2022-04-08 10:42] VITALS: RESP 18
--- NOTE | 2022-04-08 10:44 | ED.GENADUL_ITS ---
Discharge Plan Disposition Patient Disposition: Home Condition: Stable Discharge Details Clinical Impression: Sinusitis Primary Care Provider: [facility] ED Provider: Edgar Ferrer Home Meds and New Rx's Prescriptions: New amoxicillin-pot clavulanate 875-125 mg tablet 1 tab PO BID Qty: 14 0RF Continued mirtazapine 7.5 mg Tablet See Rx Instructions .ROUTE .COMPLEX Label Comments: pt states he vomited after taking Rx Instructions: pt unsure of dose quetiapine 100 mg tablet 100 mg BID Label Comments: TAKE TWO TABLETS BY MOUTH TWICE A DAY buspirone 10 mg Tablet 15 mg PO DAILY Rx Instructions: Patient unsure of dose Humira Pen Ewkolj-YN-TO Start 40 mg/0.8 mL Pen Injector Kit 160 mg SUBCUT ONCE Discharge Instructions Instructions: Sinusitis (ED) Additional Instructions: if not improving this week follow up with your primary care provider if you feel more ill, have severe worsening pain or changes in vision return to the emergency department Medical Decision Making 31 yo male with no chronic medical problems comes in with chief complaint of sinus pressure and bloody nasal discharge. He states it has been going on for 3 days, denies fevers, chills, dyspnea, cough. He has tried otc sudafed without relief. HE arrives stable and speaking clearly. He states the area of his maxillary sinuses feel congested. Has no nasal bleeding currently, normal tm's, normal oropharynx, no submandibular swelling, no facial swelling or periorbital swelling, perrl, eomi and eyes not erythematous. Symptoms seem consistent with sinusitis, given the blood nasal discharge will treat with augmentin. Advised to f/u with pcp if not improving, return precautions given Differential Diagnosis Differential Diagnosis: sinusitis, allergies Sign Out No HPI General Mode of arrival: ambulatory . Date/Time Provider Initiated Documentation: 04/08/22 10:32 . Limitations to Documentation: no limitations . Information obtained by: patient . History of Present Illness 31 year old M presents to the emergency department with the chief complaint of sinus pressure, described as moderate, and is localized to the face. Patient reports no radiation. Patient started experiencing this day(s) (3) and it has been constant. No relieving factors improve symptom(s), No exacerbating factors reported . Patient notes denies cough and fever/chills. Patient did receive the following treatments prior to arrival, other (sudafed) Related Data Home Medications Medication Instructions Recorded Confirmed mirtazapine 7.5 mg tablet See Rx Instructions .Route .COMPLEX 04/17/19 04/08/22 buspirone 10 mg tablet 15 mg PO DAILY 05/20/19 04/08/22 adalimumab 40 mg/0.8 mL 160 mg subcut ONCE 06/16/19 04/08/22 subcutaneous pen kit (Humira Pen Crohn's-[facility] Colitis-Hid Sup Starter) quetiapine 100 mg tablet 100 mg BID 07/28/21 04/08/22 amoxicillin 875 mg-potassium 1 tab PO BID #14 tabs 04/08/22 clavulanate 125 mg tablet Previous Rx's Medication Instructions Recorded amoxicillin 875 mg-potassium 1 tab PO BID #14 tabs 04/08/22 clavulanate 125 mg tablet Allergies Allergy/AdvReac Type Severity Reaction Status Date / Time No Known Allergies Allergy Unverified 04/08/22 10:36 General Stated Complaint: GenMedical PALOMO: 4 Review of Systems All systems reviewed & are unremarkable except as noted in HPI and below Constitutional Constitutional: Denies chills, Denies fever(s) and Denies weakness ENT Ears, Nose, Mouth, and Throat: Denies change in voice Cardiovascular Cardiovascular: Denies chest pain and Denies dyspnea Respiratory Respiratory: Denies cough and Denies dyspnea Gastrointestinal Gastrointestinal: Denies abdominal pain, Denies nausea and Denies vomiting Neurologic Neurologic: Denies weakness PFSH All Active Problems (Updated 04/08/22 @ 10:47 by Edgar Ferrer MD) Sinusitis (Acute) Umbilical hernia (Acute) Medical History (Updated 04/08/22 @ 10:47 by Edgar Ferrer MD) Anxiety Crohn's disease Insomnia related to another mental disorder Left varicocele Migraine Mood disorder OCD (obsessive compulsive disorder) Pectus carinatum Surgical History History of colonoscopy History of esophagogastroduodenoscopy (EGD) Social History Smoking/Tobacco Use Status: Never Smoking risk assessment performed?: Yes Alcohol Intake: current Alcohol Intake frequency: holidays/special occasions only Drug use: Never Substance use type: does not use Current gender identity: male Do you feel safe at home: Yes Do you feel safe in your relationship?: Yes Exam Const General: no acute distress Orientation: alert HENNH Head: normal to inspection Ears: external ears normal and TM's normal bilaterally General nose exam: external nose normal Face and sinus: no erythema and sinus tenderness Mouth: oral mucosae normal, oropharynx normal, moist mucous membranes and no trismus Eyes General: appearance normal, both eyes and all related structures Neck Neck: normal visual inspection Resp Effort & Inspection: normal respiratory effort and able to speak in complete sentences Cardio Rate: regular rate Skin General skin exam: no rashes or lesions noted Neuro General: patient alert and patient oriented x3 Extrem General: normal to inspection Psych Mental Status: mental status grossly normal Course Vital Signs Vital signs: Vital Signs Temperature 37.0 C 04/08/22 10:34 Pulse 97 H 04/08/22 10:34 Respiratory Rate 18 04/08/22 10:34 Blood Pressure 144/76 H 04/08/22 10:34 Pulse Oximetry 98 04/08/22 10:34 Temperature 37.0 C 04/08/22 10:34 Temperature Source Temporal Artery Scan 04/08/22 10:34 Pulse 97 H 04/08/22 10:34 Respiratory Rate 18 04/08/22 10:42 Respiratory Effort Non-Labored 04/08/22 10:42 Respiratory Depth Normal 04/08/22 10:42 Respiratory Pattern Normal 04/08/22 10:42 Blood Pressure 144/76 H 04/08/22 10:34 Blood Pressure Position Sitting 04/08/22 10:34 Pulse Oximetry 98 04/08/22 10:34 Oxygen Delivery Method Room Air 04/08/22 10:34 Oxygen Flow Rate 0 04/08/22 10:34
== END 2022-04-08 10:57 | disposition home or self-care (01) ==
PROVIDERS: Emergency Provider Emergency Medicine; PCP Family Medicine
DX: J01.90 Acute sinusitis, unspecified (principal)
CPT/HCPCS: 99283

== ENCOUNTER 2022-11-09 11:49 | Emergency (ER) | payer OTHER, SELFPAY ==
[2022-11-09 11:53] VITALS: BP 129/90; PULSE 90; RESP 18; TEMP 36.6; O2SAT 99
--- NOTE | 2022-11-09 12:35 | W.ED.GENAD ---
Discharge Plan Disposition Patient Disposition: Home Discharge Details Clinical Impression: Inguinal hernia of left side without obstruction or gangrene Primary Care Provider: [facility] ED Provider: Harpreet Kitchen Home Meds and New Rx's Prescriptions: Continued amoxicillin-pot clavulanate 875-125 mg tablet 1 tab PO Q12H Qty: 14 0RF mirtazapine 7.5 mg tablet See Rx Instructions .ROUTE .COMPLEX Patient Comments: pt states he vomited after taking Rx Instructions: pt unsure of dose quetiapine 100 mg tablet 100 mg BID Patient Comments: TAKE TWO TABLETS BY MOUTH TWICE A DAY buspirone 10 mg Tablet 15 mg PO DAILY Rx Instructions: Patient unsure of dose Humira Pen Uyceye-ZQ-SK Start 40 mg/0.8 mL Pen Injector Kit 160 mg SUBCUT ONCE Discharge Instructions Instructions: Inguinal Hernia (ED) Additional Instructions: Return to the emergency department for any new or significant worsening of symptoms including severe abdominal pain, hernia that cannot be reduced, or inability to have bowel movements. Otherwise follow-up with general surgery and take yrhc-col-phhvfod pain medication as needed for discomfort. Referrals: [facility] [Provider Group] Medical Decision Making Patient presenting to the emergency department for chief complaint of left inguinal pain and discomfort. 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 Patient reports he had some discomfort yesterday and noted some swelling that is worsened. Patient denies all other symptoms. Patient does have history of umbilical hernia with repair, and Crohn's disease. Physical exam is positive for what appears to be a left inguinal hernia. It is hard and firm with initially unable to reduce. We will check patient's labs and apply ice along with Trendelenburg's and could Toradol to see if we can reduce hernia. Reviewed patient's labs and CBC does show slight elevation of white count, lactate is normal and CMP is normal. Reassessed patient who states continued pain discomfort no change after Trendelenburg. Did attempt to reduce hernia and did note slight reduction of size compared to initial attempt but do not feel like him fully reducing the hernia and patient's pain and discomfort continues. We will call general surgery given 2 attempts to reduce hernia. General surgeon came down and evaluated patient and did not feel that my second attempt may have reduced it and just small remaining portion versus inflammation is present. Discussed with patient clinical diagnosis versus further advanced imaging. After they discussed this patient is requesting CT scan for more definitive investigation of left inguinal pain and swelling. CT was ordered with IV contrast as discussed with surgeon. Reviewed CT imaging and spoke to radiologist in regards to imaging which shows some soup subcutaneous streaking seen over the left inguinal area but no bowel loops are noted or fluid collection. There were other findings that could be consistent with patient's Crohn's disease otherwise no emergent findings noted. Will discharge patient with referral to general surgery and discussed with patient self reduction of hernia if possible pending follow-up appointment. After discussion of diagnosis and plan of care patient has no further needs, questions, or concerns and states clear understanding to return to the emergency department for any worsening symptoms. This documentation was generated using [employer] system, please disregard any oddities of phrase or misspellings. Imaging Data Radiologic Study: Imaging: CT Scan Radiologist's impression: Exam(s) CT ABDOMEN PELVIS W EXAM: CT ABDOMEN PELVIS W CLINICAL HISTORY: Left inguinal hernia. TECHNIQUE: Imaging Protocol: Axial computed tomography images with coronal and sagittal reformatted images were created and reviewed CONTRAST MATERIAL: Intravenous: Omnipaque-350 100cc Oral: None COMPARISON: CT CT ABDOMEN PELVIS W from 07/28/2021 FINDINGS: VISUALIZED LUNG BASES: No nodules nor pleural effusions evident. ABDOMEN: There is no ascites. LIVER: There are no focal hepatic lesions evident. No dilated intrahepatic ducts. GALLBLADDER/BILIARY: Gallbladder is contracted. No obvious gallstones. No pericholecystic fluid. CBD is not dilated. PANCREAS: No evidence of pancreatic mass nor dilatation of the pancreatic duct. SPLEEN: Spleen is not enlarged. No obvious intrasplenic lesions. Splenic and portal veins are patent. ADRENALS: There are no significant adrenal masses. KIDNEYS:Small sub cm benign cyst in the right kidney noted. Does not require further workup. No solid renal masses. No calculi nor hydronephrosis.. ABDOMINAL AORTA: Abdominal aorta is not enlarged. LYMPH NODES:No dojbzlradjqghku-ibqx-spwnjw adenopathy. However, there are multiple slightly prominent lymph nodes in the right-side mesentery, the largest of these measuring 1.2 cm, slightly more prominent than on the prior study. ABDOMINAL WALL: No evidence of significant anterior abdominal wall nor inguinal hernia. GI: There is no evidence of bowel obstruction, free air, nor abscess. There is a fat halo sign around the terminal ileum. Similar to previous. PELVIS: GI: No evidence of appendicitis.No evidence of sigmoid diverticulitis.There is some subcutaneous streaking and skin thickening over the left inguinal region. No prominent hernia. No bowel loops within the inguinal canal. LYMPH NODES: There is no adenopathy around the aortic bifurcation nor along the iliac chains and there is no inguinal adenopathy. REPRODUCTIVE: Prostate not enlarged. Seminal vesicles unremarkable. URINARY BLADDER: No calculi nor obvious masses evident OSSEOUS: No fractures and no significant osseous lesions. Sacroiliac joints unremarkable. IMPRESSION: 1. There are multiple slightly enlarged lymph nodes in the right-side mesentery again noted measuring up to 12 mm size. No xietgdhpmuhducv-hvcy-npkrcg adenopathy. 2. There is a fat halo sign around the terminal ileum. This is unchanged from the prior study. This can be a normal finding but also may be seen in chronic inflammatory bowel disease in this patient also has nearby slightly prominent mesenteric lymph nodes on the right side. Correlation with any history of Crohn's disease recommended. 3. Subcutaneous streaking seen over the region of the left inguinal area. No distinct fluid collection. No bowel loops in the inguinal canal. Lab Data Lab results reviewed: Yes I reviewed the patient's lab results. HPI General Mode of arrival: ambulatory. Date/Time Provider Initiated Documentation: 11/09/22 11:50. Limitations to Documentation: no limitations. Information obtained by: patient and RN notes reviewed. History of Present Illness 32 year old M presents to the emergency department with the chief complaint of Left inguinal swelling, described as moderate, with intensity rated at 6. Quality is described as aching, and is localized to the genitals and left. Patient reports no radiation. Patient started experiencing this day(s) (1) and it has been constant. No relieving factors improve symptom(s), No exacerbating factors reported . Patient notes no other symptoms.. Patient did receive the following treatments prior to arrival, none Related Data Home Medications Medication Instructions Recorded Confirmed buspirone 10 mg tablet 15 mg PO DAILY 05/20/19 11/09/22 adalimumab 40 mg/0.8 mL 160 mg subcut ONCE 06/16/19 11/09/22 subcutaneous pen kit (Humira Pen Crohn's-[facility] Colitis-Hid Sup Starter) quetiapine 100 mg tablet 100 mg BID 07/28/21 11/09/22 amoxicillin 875 mg-potassium 1 tab PO Q12H #14 tabs 09/29/22 11/09/22 clavulanate 125 mg tablet mirtazapine 7.5 mg tablet See Rx Instructions .Route .COMPLEX 09/29/22 11/09/22 Previous Rx's Medication Instructions Recorded amoxicillin 875 mg-potassium 1 tab PO Q12H #14 tabs 09/29/22 clavulanate 125 mg tablet Allergies Allergy/AdvReac Type Severity Reaction Status Date / Time No Known Allergies Allergy Unverified 09/29/22 12:30 General Stated Complaint: Abd Prob PALOMO: 3 Review of Systems Constitutional Constitutional: Denies chills, Denies fever(s) and Denies poor appetite Cardiovascular Cardiovascular: Denies chest pain and Denies dyspnea Respiratory Respiratory: Denies cough and Denies dyspnea Gastrointestinal Gastrointestinal: Reports as per HPI, Denies abdominal pain, Denies melena, Denies change in bowel habits, Denies constipation, Denies diarrhea, Denies nausea and Denies vomiting Genitourinary Genitourinary: Reports as per HPI, Denies hematuria, Denies difficulty urinating, Denies scrotal swelling and Reports other (Inguinal swelling) Integumentary/Breasts Skin/Breast: Denies rash PFSH All Active Problems (Updated 11/09/22 @ 14:47 by Harpreet Kitchen NP) Inguinal hernia of left side without obstruction or gangrene (Acute) Umbilical hernia (Acute) Medical History Anxiety Crohn's disease Insomnia related to another mental disorder Left varicocele Migraine Mood disorder OCD (obsessive compulsive disorder) Pectus carinatum Surgical History History of colonoscopy History of esophagogastroduodenoscopy (EGD) Social History Smoking/Tobacco Use Status: Never Smoking risk assessment performed?: Yes Alcohol Intake: current Alcohol Intake frequency: holidays/special occasions only Drug use: Never Substance use type: does not use Current gender identity: male Do you feel safe at home: Yes Do you feel safe in your relationship?: Yes Exam Const General: cooperative Orientation: alert, awake and oriented x3 Resp Effort & Inspection: normal respiratory effort and able to speak in complete sentences Auscultation: clear to auscultation bilaterally Cardio Rate: regular rate Rhythm: regular rhythm Heart Sounds: S1 normal and S2 normal GI Palpation: soft, not firm, no guarding, no masses, no pulsatile masses, not rigid and no splenomegaly Auscultation: normal bowel sounds Male General Exam: Yes erythema (Left inguinal) and Yes hernia (Left inguinal) Neuro General: patient alert, patient awake, patient oriented x3, gait normal and moves all extremities Course Vital Signs Vital signs: Vital Signs Temperature 36.6 C 11/09/22 11:53 Pulse 90 11/09/22 11:53 Respiratory Rate 18 11/09/22 11:53 Blood Pressure 129/90 11/09/22 11:53 Pulse Oximetry 99 11/09/22 11:53 Temperature 36.6 C 11/09/22 11:53 Temperature Source Oral 11/09/22 11:53 Pulse 90 11/09/22 11:53 Respiratory Rate 18 11/09/22 11:53 Blood Pressure 129/90 11/09/22 11:53 Blood Pressure Position Sitting 11/09/22 11:53 Pulse Oximetry 99 11/09/22 11:53 Oxygen Delivery Method Room Air 11/09/22 11:53 Oxygen Flow Rate 0 11/09/22 11:53 Pain Level 4 11/09/22 11:53
[2022-11-09 12:56] LABS: Lactate 0.7 mmol/L (0.6-1.4)
[2022-11-09] MEDS: Ketorolac 15 MG/ML VIAL IVP (12:56)
[2022-11-09 12:58] LABS: Abs Immature Grans 0.09 10^3/uL (0.0-0.06); Absolute Basophil Count 0.05 10^3/uL (0.0-0.2); Absolute Monocyte Count 1.04 10^3/uL (0.1-0.8); Basophils % 0.4; Eosinophils % 1.1; HCT 40.1 % (40.0-50.0); HGB 13.4 g/dL (13.5-17.5); Immature Grans % 0.7; Lymphocytes % 17.9; MCH 30.1 pg (27.0-33.0); MCHC 33.4 % (32.0-36.0); MCV 90 fL (80-95); MPV 9.8 fL (8.0-11.0); Monocytes % 7.9; Platelet Count 259 10^3/uL (130-400); RBC 4.45 10^6/uL (4.36-5.78); RDW 12.3 % (11.8-14.1); RDW-SD 40.9 fL; WBC 13.21 10^3/uL (4.4-10.8)
[2022-11-09 13:00] LABS: Absolute Eosinophil Count 0.15 10^3/uL (0.0-0.7); Absolute Lymphocyte Count 2.36 10^3/uL (1.2-3.4); Absolute Neutrophil Count 9.51 10^3/uL (1.2-6.7)
--- NOTE | 2022-11-09 13:05 | NUR.NOTE ---
Nursing Note:pt is in trendelenburg with ice pack to groin per provider order.
[2022-11-09 13:12] LABS: ALT 40 U/L (16-63); AST 19 U/L (15-37); Alkaline Phosphatase 95 U/L (46-116); Anion Gap 7.8 mmol/L (3-11); BUN 16 mg/dL (7-18); Bilirubin, Total 0.4 mg/dL (0.2-1.0); CO2 27.2 mmol/L (21.0-32.0); CREATININE 1.3 mg/dL (0.70-1.30); Calcium 8.6 mg/dL (8.5-10.1); Chloride 105 mmol/L (98-107); Estimated GFR 75.32 (mL/min/1.73m2); Glucose 96 mg/dL (74-106); Potassium 3.9 mmol/L (3.5-5.1); Sodium 140 mmol/L (136-145); Total Protein 7.1 g/dL (6.4-8.2)
--- NOTE | 2022-11-09 13:30 | DI.CT_ITS ---
Exam(s) CT ABDOMEN PELVIS W EXAM: CT ABDOMEN PELVIS W CLINICAL HISTORY: Left inguinal hernia. TECHNIQUE: Imaging Protocol: Axial computed tomography images with coronal and sagittal reformatted images were created and reviewed CONTRAST MATERIAL: Intravenous: Omnipaque-350 100cc Oral: None COMPARISON: CT CT ABDOMEN PELVIS W from 07/28/2021 FINDINGS: VISUALIZED LUNG BASES: No nodules nor pleural effusions evident. ABDOMEN: There is no ascites. LIVER: There are no focal hepatic lesions evident. No dilated intrahepatic ducts. GALLBLADDER/BILIARY: Gallbladder is contracted. No obvious gallstones. No pericholecystic fluid. C BD is not dilated. PANCREAS: No evidence of pancreatic mass nor dilatation of the pancreatic duct. SPLEEN: Spleen is not enlarged. No obvious intrasplenic lesions. Splenic and portal veins are paten t. ADRENALS: There are no significant adrenal masses. KIDNEYS:Small sub cm benign cyst in the right kidney noted. Does not require further workup. No shakila id renal masses. No calculi nor hydronephrosis.. ABDOMINAL AORTA: Abdominal aorta is not enlarged. LYMPH NODES:No cinyypownoybqdm-uoxf-xpykmt adenopathy. However, there are multiple slightly prominen t lymph nodes in the right-side mesentery, the largest of these measuring 1.2 cm, slightly more promi nent than on the prior study. ABDOMINAL WALL: No evidence of significant anterior abdominal wall nor inguinal hernia. GI: There is no evidence of bowel obstruction, free air, nor abscess. There is a fat halo sign aroun d the terminal ileum. Similar to previous. PELVIS: GI: No evidence of appendicitis.No evidence of sigmoid diverticulitis.There is some subcutaneous stre aking and skin thickening over the left inguinal region. No prominent hernia. No bowel loops within the inguinal canal. LYMPH NODES: There is no adenopathy around the aortic bifurcation nor along the iliac chains and ther e is no inguinal adenopathy. REPRODUCTIVE: Prostate not enlarged. Seminal vesicles unremarkable. URINARY BLADDER: No calculi nor obvious masses evident OSSEOUS: No fractures and no significant osseous lesions. Sacroiliac joints unremarkable. IMPRESSION: 1. There are multiple slightly enlarged lymph nodes in the right-side mesentery again noted measuring up to 12 mm size. No lyxdygipgzgofyu-lnzu-ekdcbf adenopathy. 2. There is a fat halo sign around the terminal ileum. This is unchanged from the prior study. This can be a normal finding but also may be seen in chronic inflammatory bowel disease in this patient a lso has nearby slightly prominent mesenteric lymph nodes on the right side. Correlation with any his tory of Crohn's disease recommended. 3. Subcutaneous streaking seen over the region of the left inguinal area. No distinct fluid collecti on. No bowel loops in the inguinal canal. Findings discussed with ER provider. RADIATION DOSE DELIVERED: 1,109.92mGy.cm Total DLP DATA REPOSITORY: All CT scans at this facility are submitted to the National Radiology Data Registry (NRDR) Dose Index Registry (DIR) with the [employer] (A[employer]). RADIATION OPTIMIZATION: All CT scans at this facility use at least one of these dose optimization te chniques: automated exposure control; mA and/or kV adjustment per patient size (includes targeted exa ms where dose is matched to clinical indication); or iterative reconstruction.
--- NOTE | 2022-11-09 13:45 | SCONE_ITS ---
Date of service: 11/09/22 Time of Service: 13:46 Assessment and Plan Assessment and plan (1) Inguinal hernia of left side without obstruction or gangrene: Status: Acute Assessment and plan: 32-year-old man with probably a left?sided incarcerated inguinal hernia that got reduced by the ED provider. At this time he does not clinically have a palpable hernia. A very small portion could be still incarcerated such as a piece of omentum or fat. Clinically, I do not appreciate this however. I think he is still sore to examination because of what was stuck in it but is now reduced. I discussed with him about the options of diagnostic laparoscopy with concomitant repair hernia once seen diagnosed versus cross-sectional imaging to decipher the certainty of the situation. I do not think any bowel is stuck in this hernia I do think he should either get a CT scan proving that or did a diagnostic laparoscopy proving that and at the same time have a hernia repair done. He favors the option of getting cross-sectional imaging first before making any further decisions. He is hopeful that he will be able to schedule this electively if that is the case and plan for the downtime. I think this is a completely appropriate management strategy. Overall plan: CT scan of the abdomen and pelvis with IV contrast. Patient in this area secondary to reduction efforts and the initial process of i ncarceration is likely to be seen on CT. As long as nothing remains incarcerated or stuck within the hernia, he should be able to be discharged with outpatient follow-up. History of Present Illness Narrative: The patient is a 32-year-old man who has had a previous hernia at his umbilicus and had it repaired about a year ago. He was in his usual state of health, and was working when he started getting left groin discomfort. This was yesterday, about 24 hours ago. 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 The discomfort did not go away and he noticed bulging in the swelling in his groin and came to the emergency department to be evaluated. In the ER, the provider put ice and then attempted to reduce it and felt like he was able to. At the bedside the patient says his left groin is still a little bit uncomfortable but not as bad as it was. The swelling is less but still there is a little bit of swelling he notes. He is not having any nausea. He has not had any distention. He does not have any intra-abdominal pain. Separately he has a history of Crohn's disease. PFSH All Active Problems (Updated 11/09/22 @ 13:48 by Angel Hickman MD) Inguinal hernia of left side without obstruction or gangrene (Acute) Umbilical hernia (Acute) Medical History Anxiety Crohn's disease Insomnia related to another mental disorder Left varicocele Migraine Mood disorder OCD (obsessive compulsive disorder) Pectus carinatum Surgical History History of colonoscopy History of esophagogastroduodenoscopy (EGD) Social History Smoking/Tobacco Use Status: Never Smoking risk assessment performed?: Yes Alcohol Intake: current Alcohol Intake frequency: holidays/special occasions only Drug use: Never Substance use type: does not use Current gender identity: male Do you feel safe at home: Yes Do you feel safe in your relationship?: Yes Exam Narrative Exam Narrative: General: Nontoxic, comfortable and interactive Neuro: Alert and oriented x3 Psych: Good mood and affect, good insight and understanding of this condition Abdomen: Soft, nondistended and nontender. Groin: The left groin is examined and is soft. Mild tenderness exists at the inguinal canal does not have any palpable bulge present. Results Last Vital Signs Temp 97.8 F 11/09/22 11:53 Pulse 90 11/09/22 11:53 Resp 18 11/09/22 11:53 BP 129/90 11/09/22 11:53 Pulse Ox 99 11/09/22 11:53 Labs 11/09/22 12:50 11/09/22 12:50 Labs: Laboratory Results - last 24 hr 11/09/22 11/09/22 11/09/22 12:50 12:50 12:50 WBC 13.21 H RBC 4.45 Hgb 13.4 L Hct 40.1 MCV 90 MCH 30.1 MCHC 33.4 RDW 12.3 Plt Count 259 MPV 9.8 Immature Gran % 0.7 Neutrophils % 72.0 Lymphocytes % 17.9 Monocytes % 7.9 Eosinophils % 1.1 Basophils % 0.4 Nucleated RBC % 0.0 Absolute Neutrophils 9.51 H Absolute Lymphocytes 2.36 Absolute Monocytes 1.04 H Absolute Eosinophils 0.15 Absolute Basophils 0.05 VBG Lactate 0.7 Sodium 140 Potassium 3.9 Chloride 105 Carbon Dioxide 27.2 Anion Gap 7.8 BUN 16 Creatinine 1.3 Est GFR (CKD-EPI 2020) 75.32 Glucose 96 Calcium 8.6 Total Bilirubin 0.4 AST 19 ALT 40 Alkaline Phosphatase 95 Total Protein 7.1 Albumin 4.0
[2022-11-09] MEDS: Normal Saline - Diluent 50 ML VIAL IJ (13:49)
[2022-11-09] MEDS: Normal Saline Flush 10 ML SYR IVP (13:49)
[2022-11-09] MEDS: Omnipaque 350 MG/ML 500 ML BTL-Imaging package IJ (13:50)
--- NOTE | 2022-11-09 14:49 | NUR.NOTE ---
Nursing Note: PT needs follow up next week with general surgery for inguinal hernia. Romy, ED
[2022-11-09 14:51] VITALS: BP 129/90; PULSE 90; RESP 18; TEMP 36.6; O2SAT 99
== END 2022-11-09 15:00 | disposition home or self-care (01) ==
PROVIDERS: Emergency Provider Nurse Practitioner Family; PCP Family Medicine
DX: K40.90 Unilateral inguinal hernia, without obstruction or gangrene, not specified as recurrent (principal)
CPT/HCPCS: 36415; 80053; 96374; 99284; 74177; 83605; 85025; J1885

== ENCOUNTER 2022-11-12 12:01 | Emergency (ER) | payer OTHER, SELFPAY ==
[2022-11-12 12:11] VITALS: BP 132/84; PULSE 100; RESP 18; TEMP 36.8; O2SAT 99
--- NOTE | 2022-11-12 13:17 | ED.GENADUL_ITS ---
Discharge Plan Disposition Patient Disposition: Home Discharge Details Clinical Impression: Left groin pain Primary Care Provider: Get [facility] ED Provider: Kali Watt Home Meds and New Rx's Prescriptions: No Action amoxicillin-pot clavulanate 875-125 mg tablet 1 tab PO Q12H Qty: 14 0RF mirtazapine 7.5 mg tablet See Rx Instructions .ROUTE .COMPLEX Patient Comments: pt states he vomited after taking Rx Instructions: pt unsure of dose quetiapine 100 mg tablet 100 mg BID Patient Comments: TAKE TWO TABLETS BY MOUTH TWICE A DAY buspirone 10 mg Tablet 15 mg PO DAILY Rx Instructions: Patient unsure of dose Humira Pen [id number]-UR-VH Start 40 mg/0.8 mL Pen Injector Kit 160 mg SUBCUT ONCE Discharge Instructions Additional Instructions: At this time the ultrasound shows no evidence of abscess, or significant infection. There is also no evidence of hernia thankfully currently. Please take 1000 mg of Tylenol every 6 hours for the next 3 to 4 days to help relieve the inflammation in the area. You can use a small amount of topical diclofenac gel which is [id number] in the area as well to help reduce inflammation. Although there is no evidence of infection, abscess, or hernia at this time, please continue to monitor your symptoms closely if you do notice fever or chills, worsening swelling, worsening pain, burning with urination, a deep set it groin pain, or pelvic pain, please return immediately for reassessment. As we discussed together, if you have any change in your symptoms that is concerning please do not hesitate to contact me here in the emergency department. If you notice any worsening of your symptoms, or any new symptoms such as vomiting, diarrhea, fever, chills, shortness of breath, chest pain, numbness, weakness, or fainting , please return immediately to the emergency department for reevaluation. Please follow up with your primary care provider as soon as possible for reassessment and reevaluation. As always, it was a pleasure participating in your medical care today. Referrals: Get Jones [Primary Care Provider] - Discharge Data Discharge Date/Time-TO BE ENTERED AT DEPARTURE: 11/12/22 13:27 Medical Decision Making 32-year-old male presents today for evaluation of left groin pain. The patient was here 3 days ago, he was evaluated for potential inguinal hernia on the left. At that time CT scan was done was negative for evidence of hernia. There was evidence of mild inflammatory components noted on the inguinal canal. He has been icing it since then. He does have a history of Crohn's disease. He has been urinating well, no dysuria. No penile discharge. No history of STDs. No difficulty having a bowel movement. He has noted that there still seems to be some mild swelling, and continued mild pain in the area. He presents for reevaluation. He denies any other changes otherwise. No other complaints at this time. No other modifying factors. No fever or chills. He denies any deep sided pain in the pelvis or rectum. Groin demonstrates evidence of minimally minimal inflammation in the left inguinal canal with mild ropey stranding this that is palpable and slightly tender. It does not seem to cross midline. No transition to the penile shaft. No scrotal mass or evidence of hernia in the scrotum. No testicular pain or tenderness. Bedside limited ultrasound demonstrates no evidence of fluid collection, no abscess, or other abnormality otherwise. Symptoms inconsistent with hernia, or abscess. No evidence of mass. At this time I suspect this is continued lymph irritation causing the current pain. No evidence of infection clinically. No fever or chills. We discussed risks and benefits of repeat imaging, labs, versus NSAIDs and close watching. At this time through shared decision-making process, we will hold off on any imaging and labs, and transition instead to continued close watching, with regular Tylenol and ice therapy, prompt return if symptoms worsen or grow. Patient agrees with plan. No evidence of UTI or clinical evidence of prostatitis, or abscess. I have extensively reviewed the treatment plan and discharge instructions with the patient. I have addressed all patient concerns at this time. The patient was made aware of what symptoms to monitor for that would warrant a return to the emergency department. Discussed the plan with the patient, they demonstrate verbal understanding and agreement with our assessment and plan at this time. The documentation in this chart was dictated using [employer] dictation software. Please excuse any dictation errors. HPI General Date/Time Provider Initiated Documentation: 11/12/22 12:52 . HPI Narrative: 32-year-old male presents today for evaluation of left groin pain. The patient was here 3 days ago, he was evaluated for potential inguinal hernia on the left. At that time CT scan was done was negative for evidence of hernia. There was evidence of mild inflammatory components noted on the inguinal canal. He has been icing it since then. He does have a history of Crohn's disease. He has been urinating well, no dysuria. No penile discharge. No history of STDs. No difficulty having a bowel movement. He has noted that there still seems to be some mild swelling, and continued mild pain in the area. He presents for reevaluation. He denies any other changes otherwise. No other complaints at this time. No other modifying factors. No fever or chills. He denies any deep sided pain in the pelvis or rectum. Related Data Home Medications Medication Instructions Recorded Confirmed buspirone 10 mg tablet 15 mg PO DAILY 05/20/19 11/12/22 adalimumab 40 mg/0.8 mL 160 mg subcut ONCE 06/16/19 11/12/22 subcutaneous pen kit ([facility] Pen Crohn's[facility] Colitis-Hid Sup Starter) quetiapine 100 mg tablet 100 mg BID 07/28/21 11/12/22 amoxicillin 875 mg-potassium 1 tab PO Q12H #14 tabs 09/29/22 11/12/22 clavulanate 125 mg tablet mirtazapine 7.5 mg tablet See Rx Instructions .Route .COMPLEX 09/29/22 11/12/22 Previous Rx's Medication Instructions Recorded amoxicillin 875 mg-potassium 1 tab PO Q12H #14 tabs 09/29/22 clavulanate 125 mg tablet Allergies Allergy/AdvReac Type Severity Reaction Status Date / Time No Known Allergies Allergy Unverified 09/29/22 12:30 General Stated Complaint: Abd Prob PALOMO: 3 Review of Systems All systems reviewed & are unremarkable except as noted in HPI and below PFSH All Active Problems Left groin pain (Acute) Inguinal hernia of left side without obstruction or gangrene (Acute) Umbilical hernia (Acute) Medical History Anxiety Crohn's disease Insomnia related to another mental disorder Left varicocele Migraine Mood disorder OCD (obsessive compulsive disorder) Pectus carinatum Surgical History History of colonoscopy History of esophagogastroduodenoscopy (EGD) Social History Smoking/Tobacco Use Status: Never Smoking risk assessment performed?: Yes Alcohol Intake: current Alcohol Intake frequency: holidays/special occasions only Drug use: Never Substance use type: does not use Housing: house Current gender identity: male Do you feel safe at home: Yes Do you feel safe in your relationship?: Yes Exam Narrative Exam Narrative: 1.Const: Well-nourished, Well-developed, appearing stated age 2.Eyes: PERRL, no conjunctival injection, and symmetrical lids. 3.ENT: Atraumatic external nose and ears. Moist MM. Neck: Symmetric, trachea midline, No thyromegaly. 4.CVS: +S1/S2, No murmurs or gallops. Peripheral pulses 2+ and equal in all extremities. Brisk capillary refill in all extremities. 5.RESP: Unlabored respiratory effort. Clear to auscultation bilaterally. No wheezes rales or rhonchi 6.GI: Soft, Nontender/Nondistended, No hepatosplenomegaly. No guarding or rebound. Groin demonstrates evidence of minimally or Tatian/inflammation in the left inguinal canal with mild ropey stranding this that is palpable and slightly tender. It does not seem to cross midline. No transition to the penile shaft. No scrotal mass or evidence of hernia in the scrotum. No testicular pain or tenderness. Bedside limited ultrasound demonstrates no evidence of fluid collection, no abscess, or other abnormality otherwise. Symptoms inconsistent with hernia, 7.MSK: Normocephalic/Atraumatic, Extremities w/o deformity or ttp No cyanosis or clubbing, Normal movement of all extremities 8.Skin: Warm, Dry. No rashes or lesions. 9.Neuro: database programmer II-XII grossly intact. Sensation grossly intact, no focal neurologic deficits. 10.Psych: (AAO) x3. Appropriate mood and affect Course Vital Signs Vital signs: Vital Signs Temperature 36.8 C 11/12/22 12:11 Pulse 100 H 11/12/22 12:11 Respiratory Rate 18 11/12/22 12:11 Blood Pressure 132/84 11/12/22 12:11 Pulse Oximetry 99 11/12/22 12:11 Temperature 36.8 C 11/12/22 12:11 Temperature Source Oral 11/12/22 12:11 Pulse 100 H 11/12/22 12:11 Respiratory Rate 18 11/12/22 12:11 Respiratory Effort Normal, Non-Labored 11/12/22 12:14 Blood Pressure 132/84 11/12/22 12:11 Blood Pressure Position Sitting 11/12/22 12:11 Pulse Oximetry 99 11/12/22 12:11 Oxygen Delivery Method Room Air 11/12/22 12:11 Oxygen Flow Rate 0 11/12/22 12:11 Pain Level 6 11/12/22 12:11
[2022-11-12] MEDS: Ketorolac 30 MG/ML VIAL IM (13:23)
== END 2022-11-12 13:27 | disposition home or self-care (01) ==
PROVIDERS: Emergency Provider Student in an Organized Health Care Education/Training Program; PCP Family Medicine
DX: R10.30 Lower abdominal pain, unspecified (principal)
CPT/HCPCS: 36415; 90471; 96360; 96361; 96374; 99284; 99283; J1885

== ENCOUNTER 2023-03-11 18:32 | Outpatient (REF) | payer OTHER, SELFPAY ==
[2023-03-13 09:16] LABS: HIV-1/2 Ag & Ab Screen Negative (Negative)
[2023-03-13 09:54] LABS: Hepatitis C Ab w Rflx HCV PCR Negative (Negative)
[2023-03-13 10:59] LABS: Syphilis Serology (RPR) Negative (Negative)
[2023-03-13 15:08] LABS: HBs Antibody, Quant 221.1 mIU/mL (See Note); Hepatitis B Surface Ab Positive (See Note)
[2023-03-13 15:11] LABS: Hepatitis B Surface Ag Negative (Negative)
[2023-03-13 15:58] LABS: Hep B Core Antibody Negative (Negative)
== END 2023-03-11 18:33 | disposition home or self-care (01) ==
LOC: NCHCN 18:32
PROVIDERS: PCP Family Medicine; Visit Provider Family Medicine
DX: Z11.3 Encounter for screening for infections with a predominantly sexual mode of transmission (principal); Z11.4 Encounter for screening for human immunodeficiency virus [HIV]; Z11.59 Encounter for screening for other viral diseases; Z01.84 Encounter for antibody response examination
CPT/HCPCS: 86704; 86706; 86803; 87340; 87389; 86592

== ENCOUNTER 2024-03-30 08:20 | Day surgery (SDC) | payer OTHER, SELFPAY ==
[2024-03-30] VITALS (20 sets, daily range): BP systolic 119–147; BP diastolic 64–93; PULSE 73–91; RESP 10–21; TEMP 36.3–37.2; O2SAT 93–100; BMI 30.2
[2024-03-30] MEDS: Lactated Ringers 500 ML 30 ML IV ×2 (08:56→10:47)
--- NOTE | 2024-03-30 10:37 | ANES.PREOP_ITS ---
General Info Date of Service Date Performed: 03/30/24 Height: 6 ft 3 in Weight: 109.8 kg Body Mass Index (BMI): 30.2 Surgical Procedure: Operation Date: 03/30/24 10:40 Proposed Procedure Side Surgeon p Septoplasty Umesh Beckford MD Meds Allergies and Home Medications Allergies Allergy/AdvReac Type Severity Reaction Status Date / Time No Known Allergies Allergy Verified 03/30/24 08:41 Home Medication ?Medication ?Instructions ?Recorded buspirone 10 mg tablet 15 mg PO DAILY 05/20/19 adalimumab 40 mg/0.8 mL 160 mg subcut ONCE 06/16/19 subcutaneous pen kit (Humira Pen Crohn's-[facility] Colitis-Hid Sup Starter) quetiapine 100 mg tablet 100 mg PO BID 07/28/21 Current Visit Medications: Current Medications Generic Name Dose Route Start Last Admin Trade Name Freq PRN Reason Stop Dose Admin Cefazolin Sodium/Dextrose 2 gm in 50 mls @ 100 mls/hr 03/30/24 06:00 Ancef Duplex IVPB 03/30/24 16:00 PREOP DEVEN Tranexamic Acid 1,000 mg/ 100 mls @ 600 mls/hr 03/30/24 06:00 Sodium Chloride IVPB 03/30/24 16:00 PREOP DEVEN Ringer's Solution 500 mls @ 30 mls/hr 03/30/24 09:00 03/30/24 08:56 IV 04/29/24 08:59 30 mls/hr INFUSION DEVEN Administration IV Miscellaneous Supplies 1 each 03/30/24 06:00 Iv Access IV 04/26/24 23:59 DIRECTED DEVEN Sodium Chloride 0 ml 03/30/24 06:00 Normal Saline Flush 10 Ml Syr IV 04/26/24 23:59 PRN PRN Sodium Chloride 0 ml 03/30/24 06:00 Normal Saline 10 Ml Vial IJ 04/26/24 23:59 DIRECTED PRN Sterile Water 0 ml 03/30/24 06:00 Water,Injection,Sterile 10 Ml Vial IJ 04/26/24 23:59 DIRECTED PRN PFSH Active Problems Active Problems: Problem Status Onset Code Deviated nasal septum Acute J34.2 Nasal congestion Acute R09.81 Inguinal hernia of left side without obstruction or gangrene Acute K40.90 Umbilical hernia Acute K42.9 Medical History Medical History History of syncope Knee pain, bilateral Impacted cerumen of both ears Elevated blood pressure reading in office with diagnosis of hypertension Pectus carinatum Migraine Left varicocele OCD (obsessive compulsive disorder) Insomnia related to another mental disorder Mood disorder Anxiety Crohn's disease Surgical History Surgical History (Updated 03/30/24 @ 08:42 by Monet Lynn RN) Hx of umbilical hernia repair History of esophagogastroduodenoscopy (EGD) History of colonoscopy Tobacco Smoking/Tobacco Use Status: Never Alcohol Alcohol Intake: current Alcohol intake frequency: holidays/special occasions only Substance Use Substance use: Never Substance use type: does not use Vital Signs and Lab Results Vital Signs Most Recent Vital Signs in EMR: Most Recent Vital Signs Temp Pulse Resp BP Pulse Ox 37.2 C 91 H 16 136/88 99 03/30/24 08:36 03/30/24 08:36 03/30/24 08:36 03/30/24 08:36 03/30/24 08:36 Lab Results Blood Type / Crossmatch: No Data to Display Complete Blood Count: No Data to Display Complete Metabolic Panel: No Data to Display Liver Function Panel: No Data to Display Coagulation Panel: No Data to Display Cardiac Panel: No Data to Display Arterial Blood Gas: No Data to Display Venous Blood Gas: No Data to Display Pancreas Panel: No Data to Display Thyroid Panel: No Data to Display Infectious Disease: No Data to Display Blood Cultures: No Data to Display Toxicology Panel: No Data to Display Anesthesia Assessment and Plan Anesthesia History Personal History: No History of Anesthesia Complications Family History: No Family History of Anesthesia Complications Exercise Tolerance Exercise Tolerance: Metabolic Equivalents>4 Pertinent Negatives Pertinent Negatives: No Symptoms of GERD Cardiac & Pulmonary Exam Cardiac Exam: Normal S1/S2 Heart Sounds Pulmonary Exam: Clear Bilateral Breath Sounds Implantable Cardiac Device Does patient have a Pacemaker or an ICD?: No Airway Exam Known Difficult Airway: No Mallampati Class: 2 Mouth Opening: Normal (> 3cm) Thyromental Distance: Greater than 3 cm Neck Range of Motion: Full ROM Neck Circumference: Normal Teeth Condition: Normal Dentition ASA Classification ASA Score: ASA 2 Emergency Case?: No NPO Status NPO Status: NPO Clears >2 hours, Solids >8 hours Anesthesia Plan Resuscitation Status: Full Code Anesthesia Technique: General Anesthesia Airway Planned: Endotracheal Tube Monitors Used: Standard Monitors
--- NOTE | 2024-03-30 10:51 | PDOC.DSDIS_ITS ---
Date of service: 03/30/24 Discharge Plan Disposition Patient Disposition: Home Discharge Details Reason For Visit: Septoplasty Attending Provider: Umesh Beckford Primary Care Provider: IZAIAH DRISCOLL Home Meds and New Rx's Prescriptions: No Action quetiapine 100 mg tablet 100 mg PO BID Patient Comments: TAKE TWO TABLETS BY MOUTH TWICE A DAY buspirone 10 mg Tablet 15 mg PO DAILY Rx Instructions: Patient unsure of dose Humira Pen [id number]-ZV-SO Start 40 mg/0.8 mL Pen Injector Kit 160 mg SUBCUT ONCE Discharge Instructions Additional Instructions: My cell phone number is [phone]. Please call with any questions or concerns. If you are unable to reach me and you feel it is an emergency, please call 911 or proceed to the emergency room Stand Alone Forms: Anesthesia Discharge Inst., Jose Dill ([facility]), ENT-Septo I nstrGeovanna Beckford Referrals: Umesh Beckford MD [ [facility] STAFF PHYSICIAN] - 04/02/24 8:15 am Discharge Orders Discharge Orders: Discharge Order (Routine); Ordered 03/30/24 Ordered By: Umesh Beckford
--- NOTE | 2024-03-30 10:52 | ROE_ITS ---
Operative Note Operative Note PRE-OP DIAGNOSIS: Deviated nasal septum with nasal obstruction POST-OP DIAGNOSIS: same PROCEDURE: Nasal septoplasty SURGEON: Umesh Beckford ANESTHESIA TYPE: General LMA/ETT Refer to Anesthesia Record ESTIMATED BLOOD LOSS: 5 PATHOLOGY: other (Septal cartilage and bone) COMPLICATIONS: None Patient was transported to: PACU Patient's condition: stable Implants: Brooks splints Indications: Patient with chronic nasal obstruction, medically recalcitrant. Options were explained to patient and his significant other regarding further management. Burak ness elected to undergo the above procedure. Consent was filled out and signed. All questions were answered. H&P was reviewed. The below was then performed. Findings: Markedly deviated nasal septum with anterior deviation to the left, and a large spur to the right mid septum Procedure Description: After obtaining an adequate level of general endotracheal anesthesia the patient was persistent in a supine position and prepped and draped in appropriate fashion. 1% lidocaine with 1/100,000 epinephrine was injected the septum bilaterally as well as into the inferior turbinates bilaterally. Cocaine soaked nasal pledgets were placed in bilateral nostrils and left for 5 minutes at which point family removed and a left-sided hemitransfixion incision was made. Submucoperiosteal and submucoperichondrial planes were created along the left side of the septum, taking care not to damage the overlying mucosa. Once this has been elevated along the quadrangular cartilage and also over the deviated portion of the bony nasal septum, a [place] knife was used to incise the quadrangular cartilage anteriorly leaving a strong dorsal and columellar strut but removing the anterior deviation to the left. Submucoperichondrial and submucoperiosteal plane through the developed on the right side of the nasal septum including over the large spur. Once this had been skeletonized, a swivel knife was used to remove the deviated quadrangular cartilage, and then a Wedron- John was used to remove the bone cephalad to the spur and then a 4 mm chisel used to separate the spur inferiorly. The spur was then removed in its entirety. Examining the septum after this revealed that the mucosa was intact bilaterally and the deviation had been corrected. The nasal tip was still stable. There was no significant bleeding. A 4-0 chromic suture was used to approximate the edges of the hemitransfixion incision and then after ensuring that the nose was stable, Brooks splints were placed along the septum bilaterally and sutured into place with a 4-0 Prolene suture. The patient was then awakened and extubated by anesthesia and taken the recovery room in stable condition. I was present throughout the entire case. Of note a small drain hole was made to the right posteriorly within the septal mucosa to allow any blood to escape without accumulation prior to placement of the Brooks splints. Date of Procedure: 03/30/24
[2024-03-30] MEDS: ceFAZolin 2 GM/50 ML BAG IVPB (11:02)
[2024-03-30] MEDS: TRANEXAMIC ACID 1,000 MG in Normal Saline 90 ML 600 MG IVPB (11:16)
[2024-03-30] MEDS: Lidocaine 1% Multi-Dose W/EPI 1/100,000 50 ML VIAL (11:16)
[2024-03-30] MEDS: Bacitracin 1 PACKET (11:22)
[2024-03-30] MEDS: Cocaine Nasal 4% 4 ML BTL (11:23)
--- NOTE | 2024-03-30 11:40 | BONE_PTH ---
PATIENT: Foster Gonzalez LOC: [facility] U#:[id number] AGE/SX: 33/M ROOM: RE03/30/[address]: Umesh Beckford MD : 1990 BED: DIS: 03/30/2024 SPEC #: [id number] RECD: 03/30/24 13:13 STATUS: TERRY REQ #: [id number] MAURICE: 03/30/24 11:[address]: Umesh Beckford DEPT: Surgical Specimen RECD BY: Selina Navarro ENTERED: 03/30/24 13:14 SP TYPE: Bone OTHR DR: IZAIAH DRISCOLL NP Tissues: 1 - BONE BX/CURRETTE NOT PATH FRACTURE Procedures: GROSS LEVEL 1 Comments: [id number]
--- NOTE | 2024-03-30 12:00 | PDOC.DSDIS_ITS ---
Date of service: 03/30/24 Discharge Plan Disposition Patient Disposition: Home Condition: Good Discharge Details Reason For Visit: Septoplasty Attending Provider: Umesh Beckford Primary Care Provider: IZAIAH DRISCOLL Home Meds and New Rx's Prescriptions: New cephalexin 500 mg tablet 500 mg PO TID 7 Days Qty: 21 0RF No Action quetiapine 100 mg tablet 100 mg PO BID Patient Comments: TAKE TWO TABLETS BY MOUTH TWICE A DAY buspirone 10 mg Tablet 15 mg PO DAILY Rx Instructions: Patient unsure of dose Humira Pen Anoyjk-VT-WV Start 40 mg/0.8 mL Pen Injector Kit 160 mg SUBCUT ONCE Discharge Instructions Additional Instructions: My cell phone number is [phone]. Please call with any questions or concerns. If you are unable to reach me and you feel it is an emergency, please call 911 or proceed to the emergency room Stand Alone Forms: Anesthesia Discharge Inst., Jose Dill ([facility]), ENT-Septo InstrGeovanna Beckford Referrals: Umesh Beckford MD [ [facility] STAFF PHYSICIAN] - 04/02/24 8:15 am Discharge Orders Discharge Orders: Discharge Order (Routine); Ordered 03/30/24 Ordered By: Umesh Beckford
[2024-03-30] MEDS: ACETAMINOPHEN 1,000 MG/100 ML BAG 1000 MG (12:11)
--- NOTE | 2024-03-30 15:04 | W.ANESPOSTOP ---
Postoperative Evaluation Date, Time and Location Date Performed: 03/30/24 Time Performed: 13:20 Patient Location: Day Surgery Unit Vital Signs Most Recent Imported Vital Signs: Most Recent Vital Signs Temp Pulse Resp BP Pulse Ox 36.7 C 74 18 147/86 H 100 03/30/24 13:14 03/30/24 13:14 03/30/24 13:14 03/30/24 13:14 03/30/24 13:14 Pain Score Most Recent Pain Score: Most Recent Pain Score Pain Level 2 03/30/24 12:41 Assessment Mental Status: Awake (Alert & Oriented to Patient Baseline) Airway and Respiratory Function: Patent airway with normal (patient baseline) respiratory exam Cardiovascular Function: Hemodynamically Stable Hydration Status: Adequately Hydrated Nausea & Vomiting: No Nausea or Vomiting Pain: Pain is tolerable per patient Peripheral Nerve Block: Patient did not receive a nerve block
== END 2024-03-30 13:29 | disposition home or self-care (01) ==
PROVIDERS: PCP Nurse Practitioner Family; Visit Provider Otolaryngology
PROC: (CPT 30520; principal; 2024-03-30 10:30)
DX: J34.2 Deviated nasal septum (principal); G47.00 Insomnia, unspecified; G43.909 Migraine, unspecified, not intractable, without status migrainosus
CPT/HCPCS: 30520; 88300; 88304; J0131; J0690; J1100; J2003; J2004; J2371; J2405; J2704; J3010

== ENCOUNTER 2024-08-04 16:44 | Outpatient (REF) | payer OTHER, SELFPAY ==
[2024-08-04 19:31] LABS: Abs Immature Grans 0.09 10^3/uL (0.0-0.06); Absolute Basophil Count 0.07 10^3/uL (0.0-0.2); Absolute Eosinophil Count 0.41 10^3/uL (0.0-0.7); Absolute Lymphocyte Count 3.71 10^3/uL (1.2-3.4); Absolute Monocyte Count 0.88 10^3/uL (0.1-0.8); Basophils % 0.5 %; Eosinophils % 2.9 %; HGB 14.3 g/dL (13.5-17.5); Immature Grans % 0.6 %; Lymphocytes % 26.1 %; MCH 29.9 pg (27.0-33.0); MCHC 32.5 % (32.0-36.0); MCV 92 fL (80-95); MPV 10.3 fL (8.0-11.0); Monocytes % 6.2 %; Neutrophils % 63.7 %; Platelet Count 337 10^3/uL (130-400); RBC 4.79 10^6/uL (4.36-5.78); RDW 12.2 % (11.8-14.1); RDW-SD 41.5 fL; WBC 14.23 10^3/uL (4.4-10.8)
[2024-08-04 19:37] LABS: Absolute Neutrophil Count 9.06 10^3/uL (1.2-6.7)
[2024-08-04 19:53] LABS: Hemoglobin A1C 5.6 % (<5.7)
[2024-08-04 19:56] LABS: Iron 46 ug/dL (65-175); Total Iron Binding Capacity 352 ug/dL (250-450); Transferrin Sat 13 % (20-55)
[2024-08-04 20:26] LABS: ALT 60 U/L (16-63); AST 29 U/L (15-37); Albumin 4.6 g/dL (3.4-5.0); Alkaline Phosphatase 96 U/L (46-116); Anion Gap 9.8 mmol/L (3-11); BUN 19 mg/dL (7-18); Bilirubin, Total 0.3 mg/dL (0.2-1.0); CO2 27.2 mmol/L (21.0-32.0); CREATININE 1.2 mg/dL (0.70-1.30); Calcium 9.5 mg/dL (8.5-10.1); Calculated LDL 94 mg/dL (<100); Chloride 103 mmol/L (98-107); Cholesterol 180 mg/dL (<200); Estimated GFR 81.89 (mL/min/1.73m2); Glucose 85 mg/dL (74-106); HDL Cholesterol 34 mg/dL (>or=40); Potassium 4.2 mmol/L (3.5-5.1); Sodium 140 mmol/L (136-145); TSH 3.55 uIU/mL (0.36-3.74); Total Protein 7.6 g/dL (6.4-8.2); Triglyceride 261 mg/dL (<150); Vitamin B12 484 pg/mL (193-986); Vitamin D 25 Total 20 ng/mL (30-100)
[2024-08-04 20:31] LABS: Folate > 20.0 ng/mL (8.6-20.0)
[2024-08-04 20:49] LABS: FREE T4 0.85 ng/dL (0.76-1.46)
[2024-08-09 15:18] LABS: Testosterone, Total 186 ng/dL (240-950)
== END 2024-08-04 16:45 | disposition home or self-care (01) ==
LOC: NCHCN 16:44
PROVIDERS: PCP Nurse Practitioner Family; Visit Provider Family Medicine
DX: R53.83 Other fatigue (principal); K50.90 Crohn's disease, unspecified, without complications; Z79.891 Long term (current) use of opiate analgesic
CPT/HCPCS: 80053; 80061; 82306; 84403; 82607; 82746; 83036; 83540; 83550; 84439; 84443; 85025

== ENCOUNTER 2024-11-27 19:47 | Outpatient (REF) | payer OTHER, SELFPAY ==
[2024-11-27 19:24] LABS: Abs Immature Grans 0.05 10^3/uL (0.0-0.06); HCT 40.1 % (40.0-50.0); HGB 13.4 g/dL (13.5-17.5); Immature Grans % 0.4 %; MCH 29.8 pg (27.0-33.0); MCHC 33.4 % (32.0-36.0); MCV 89 fL (80-95); MPV 10.5 fL (8.0-11.0); Platelet Count 307 10^3/uL (130-400); RBC 4.49 10^6/uL (4.36-5.78); RDW 12.3 % (11.8-14.1); RDW-SD 40.2 fL; WBC 11.88 10^3/uL (4.4-10.8)
[2024-11-27 19:29] LABS: Iron 41 ug/dL (65-175); Total Iron Binding Capacity 323 ug/dL (250-450); Transferrin Sat 13 % (20-55)
[2024-11-30 07:52] LABS: PSA, Screening 0.4 ng/mL (<=2.5)
== END 2024-11-27 19:48 | disposition home or self-care (01) ==
LOC: NCHCN 19:47
PROVIDERS: PCP Nurse Practitioner Family; Visit Provider Family Medicine
DX: Z80.42 Family history of malignant neoplasm of prostate (principal); E61.1 Iron deficiency
CPT/HCPCS: 84153; 83540; 83550; 85025